=== PATIENT | female | born 1970 | race Caucasian/White ===

== ENCOUNTER 2021-12-16 08:20 | Emergency (ER) | payer OTHER, SELFPAY ==
--- NOTE | ~2021-12-16 | XR_ITS ---
EXAMINATION: XR HAND, RIGHT CLINICAL INFORMATION: History of fall, pain. COMPARISON: None TECHNIQUE: PA, lateral, and oblique views of the right hand. FINDINGS: The distal radius, ulna and radioulnar joint are normal. Carpal bones are intact and have normal alignment. The joint spaces of the wrist are maintained. The metacarpals and MCP joints are unremarkable. The phalanges are intact. Small osteophytes are noted at distal interphalangeal joints. There appears to be an old punctate calcification projecting dorsal to the mildly degenerated 5th DIP joint. XR/XR hand RT min 3V IMPRESSION: * No acute findings. No fracture or malalignment in the hand or wrist. * Mild osteoarthritis of distal interphalangeal joints.
[2021-12-16 08:25] VITALS: BP 158/99; PULSE 78; RESP 19; TEMP 36.6; O2SAT 98; BMI 39.6
--- NOTE | 2021-12-16 11:23 | ED_ITS ---
HPI - Extremity Problem General Chief complaint: Extremity Injury, Upper Stated complaint: R hand inj Time Seen by Provider: 12/16/21 10:54 Source: patient Mode of arrival: ambulatory Limitations: no limitations History of Present Illness HPI Narrative: 51-year-old female presents to ED for right hand palm laceration. Patient states she was at work and she tripped and scraped her hand on the cement. Patient denies hitting head or loss of consciousness. Patient denies any other physical complaints. Patient denies any other trauma. Related Data Previous Rx's Medication Instructions Recorded cephalexin 500 mg capsule 500 mg PO QID 7 days #28 caps 12/16/21 naproxen 500 mg tablet 500 mg PO BID PRN pain 7 days #14 12/16/21 tabs Allergies Allergy/AdvReac Type Severity Reaction Status Date / Time No Known Allergies Allergy Verified 12/16/21 09:54 Review of Systems Review of Systems: Right hand laceration Yes all other systems are reviewed and are negative PMFSH Social History Social History Advance Directives: No Advance Directives Information Provided: No Physical Exam Vital Signs: Vital Signs: Last Vital Signs Temp 98 F 12/16/21 08:25 Pulse 78 12/16/21 08:25 Resp 19 12/16/21 08:25 BP 158/99 H 12/16/21 08:25 Pulse Ox 98 12/16/21 08:25 O2 Del Method 12/16/21 08:25 BMI result Body Mass Index 39.6 Const: General: cooperative, healthy appearing, comfortable, no acute distress, well developed, alert, awake and Physically active Orientation/consciousness: oriented to person, oriented to place, oriented to time and patient oriented x3 HEENT: Head: Yes normal to inspection, Yes No palpable skull fracture present, Yes normocephalic, Yes atraumatic and No abrasion Eyes: General: appearance normal, both eyes and all related structures Neck: Neck: Yes normal visual inspection, Yes full ROM, Yes no ly mphadenopathy, Yes no meningeal signs, Yes trachea midline, Yes supple, No anterior neck swelling and No tender Chest: Chest palpation & inspection: normal inspection of the chest and normal palpation of entire chest wall Resp: Effort & Inspection: normal respiratory effort and able to speak in complete sentences Auscultation: clear to auscultation bilaterally Cardio: Jugular venous distension: no JVD Heart sounds: S1 normal heart sound present and S2 normal heart sound present GI: Inspection: Yes normal to inspection and No abdominal wall ecchymosis Palpation (GI): Soft to palpation, not firm, nontender, no guarding and not rigid : General: No CVA tenderness and Yes no CVA tenderness Back/Spine/Pelvis: Back: no CVA tenderness, No CVA tenderness and No back tenderness Skin: General skin exam: no rashes or lesions noted and elasticity normal Neuro: General: oriented to person, oriented to place, oriented to time, patient oriented x3, gait normal, tone normal and no meningeal signs Extrem: General: Yes normal to inspection and Yes full ROM Hand/finger images: 1. Positive for skin tear. Skin is cueva. Negative for deep laceration wound. Patient has complete range of motion of fingers. Negative for signs of tendon or ligament/nerve injury. Refills intact. Rest of extremity normal. Motor/neuro/vascular exam intact. Psych: Appearance: grossly normal, well kempt and not disheveled Course Course Course Narrative: Patient states up-to-date with tetanus. X-ray ordered Reevaluation(s) Reevaluation #1: X-ray negative for any fracture. Wound clean and placed in Xeroform. Patient informed follow-up were connection. Patient will be discharged on antibiotics Time: 11:29 MDM - Extremity (Nontraumatic) MDM Narrative Medical decision making narrative: hand injury. Skin tear Discharge Plan Discharge Clinical Impression: Skin tear of right upper extremity Patient Disposition: Home, Self-Care Instructions: Laceration Without Closure (ED) Additional Instructions: Your skin tear does not need any repair. Due to skin tear occurring on the palm will be discharged with antibiotics. You need to follow-up with work connection due to incident occurring at work. Return to ED for any headache any dizziness, vomiting blood, redness, pus discharge, foul odor, fever, chills, red streaks, bluish black discoloration, hotness, coldness, numbness/tingling, or any other concerning symptoms. Prescriptions: New cephalexin 500 mg capsule 500 mg PO QID 7 Days Qty: 28 0RF naproxen 500 mg tablet 500 mg PO BID PRN (Reason: pain) 7 Days Qty: 14 0RF Referrals: [facility] [Outside] (hand skin tear at work) Stand Alone Forms: Work/School Release Interventions: ED Discharge Assessment Last Done: 12/16/21 11:43 Discharge Date/Time: 12/16/21 11:47 Print Language: Australian
== END 2021-12-16 11:47 | disposition home or self-care (01) ==
PROVIDERS: Emergency Provider Student in an Organized Health Care Education/Training Program
DX: S61.411A Laceration without foreign body of right hand, initial encounter (principal); S60.511A Abrasion of right hand, initial encounter; W01.0XXA Fall on same level from slipping, tripping and stumbling without subsequent striking against object, initial encounter; Y93.9 Activity, unspecified; Y92.9 Unspecified place or not applicable; Y99.0 Civilian activity done for income or pay
CPT/HCPCS: 73130; 99282; 99283

== ENCOUNTER 2024-07-19 15:34 | Outpatient (AMB) | payer OTHER, SELFPAY ==
--- NOTE | 2024-07-19 15:40 | A.OFFVIS_ITS ---
Vital Signs 07/19/24 15:45 Height 5 ft 1 in Weight 214 lb 6 oz BMI 40.5 BP 123/63 Blood Pressure Location Lt brachial Position Sitting Pulse 75 Pulse Oximetry (%) 96 Oxygen Delivery Method Room Air Comment wt obtained on scale with shoes off Intake Visit Reasons: blood in stool Intake Note: Patient new consult for blood in stool. Patient cc: abdominal bloating and constipation. No more blood in stool/ one month ago. Route [employer] Supervisor Required: No Accompanied by: Self / Same As Patient Allergies No Known Allergies Allergy (Verified 07/19/24 15:43) Medication List - Last Reconciled 07/19/24 by Idalmis Weathers CNP acetaminophen ER mg PO PRN dajlhyppx-[id number]-fmmjnti ala 50-200-25 mg (Biktarvy) 1 tab PO DAILY ibuprofen 600 mg PO Q6H PRN HPI HPI blood in stool: Details: Patient is a 53-year-old female with PMH of obesity, HIV. Referred by PCP for further evaluation of rectal bleeding. Sera presents for further evaluation of rectal bleeding. She reports the onset of bleeding about two to three months ago. The bleeding is intermittent, with multiple episodes noted along with clots and associated abdominal pain. The location of the pain is in the lower abdomen, described as pelvic pain. She experiences bowel movements two to three times a week, sometimes requiring stra ining. However, states more recently stool alternates between constipation and diarrhea. Shares constipation improves with prune juice. Diarrhea occurs about twice a day when present. Reports remote hx of hemorrhoidectomy. She also reports occasional heartburn triggered by certain foods, which she manages with milk or Pepto-Bismol. Believes she had PAP for cervical CA screening approx two years ago at [facility] Patient denies: fever/chills, n/v, appetite changes, regurgitation, dysphasia, unintentional wt loss HIV managed by ID, on Biktarvy, last visit 2 mo ago, stable per pt Sera reports a recent thyroid ultrasound following an accident, which revealed thyroid enlargement. No intervention planned; repeat ultrasound scheduled in one year per PCP. Social History - Diet: Regular intake of rice, pasta, pizza, coffee, occasional carbonated beverages like Dr. 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 [facility] Medical History (Updated 07/19/24 @ 17:31 by Idalmis Weathers CNP) Morbid obesity with BMI of 40.0-44.9, adult HIV (human immunodeficiency virus infection) Change in stool Blood in stool Constipation Acid reflux Colon cancer screening Surgical History (Updated 07/19/24 @ 15:54 by Sera Luther) Hx of hand surgery Hx of carpal tunnel repair Hx of colonoscopy Family History (Updated 07/19/24 @ 16:12 by Idalmis Weathers CNP) Mother Heart disease Social History (Updated 07/19/24 @ 15:47 by Sera Luther) Household Members: Family Alcohol intake: never Patient Tobacco Use Status: Never used Tobacco Use of substances other than those prescribed or required for medical reasons: No Review of Systems Const Reports as per HPI ENT Reports as per HPI Card Reports as per HPI Resp Reports as per HPI GI Reports as per HPI Reports as per HPI Physical Exam Vital Signs: Last Vital Signs Pulse 75 07/19/24 15:45 BP 123/63 07/19/24 15:45 Pulse Ox 96 07/19/24 15:45 Oxygen Delivery Method Room Air 07/19/24 15:45 BMI result Body Mass Index 41.6 Const General: healthy appearing, no acute distress and well developed Nutritional Appearance: well nourished Orientation/consciousness: patient oriented x3 HEENT Head: Yes normal to inspection, Yes normocephalic and Yes atraumatic Face and sinus: Yes normal facial exam Eyes General: appearance normal, both eyes and all related structures Neck Neck: Yes normal visual inspection Resp Effort & Inspection: normal respiratory effort, able to speak in complete sentences, no tracheal deviation and symmetric chest movement Auscultation: clear to auscultation bilaterally Cardio Jugular venous distension: no JVD Rate: regular rate Rhythm: regular rhythm Heart sounds: S1 normal heart sound present, S2 normal heart sound present, no gallops and no murmurs GI Inspection: Yes normal to inspection and No distended Palpation (GI): Soft to palpation, not firm, nontender and No hepatosplenomegaly present Auscultation: normal bowel sounds Neuro General: patient oriented x3 Gait exam (Neuro): Normal gait present Psych Appearance: grossly normal Mental Status: mental status grossly normal Speech and movement: Normal speech and movement present Affect: normal affect Attitude: cooperative Thought process: Normal thought process present Thought content: Normal thought content present Insight: Good insight present (Psych) Judgement: Good judgement present (Psych) Assessment & Plan Assessment & Plan (1) Acid reflux: Code(s): K21.9 - Gastro-esophageal reflux disease without esophagitis Category: Medical Qualifiers: Esophagitis presence: esophagitis presence not specified Qualified Code(s): K21.9 - Gastro-esophageal reflux disease without esophagitis Plan: Heartburn triggered by food, relieved by milk/antacids Additional Tests: upper endoscopy at time of colonoscopy Medications: - Pepcid (famotidine) PRN for heartburn (Rx provided) - Discontinue Pepto-Bismol for reflux due to potential diagnostics interference -advised Tylenol over NSAIDs for any pain management needs Education on GERD prevention : -Advised against heavy meals; encouraged small, frequent meals instead of large ones. - Instructed to remain upright for 2?3 hours after eating. - Advised to avoid late-night meals, spicy foods, caffeine, alcohol, known diet robert triggers, and tight-fitting clothing. - Emphasis placed on gradual implementation of lifestyle changes to improve adherence and symptom control. (2) Blood in stool: Code(s): K92.1 - Melena Category: Medical Plan: Intermittent rectal bleeding with clots, abdominal pain, hx hemorrhoidectomy, age-appropriate for CRC screening. Last colonoscopy approximately 5-6 years ago at outside facility, results not available at time of this visit Additional Tests: - Colonoscopy (to r/o colorectal CA, polyps, other pathology) Diagnostic Tests: -Prescriptions for laxative tablets and Miralax sent to pharmacy; instructions for Gatorade purchase and clear liquid diet given. -will attempt to obtain most recent PAP results Medications: - understands to hold ibuprofen 7 days prior to procedure. - Use Tylenol if needed for pain. Patient educated on procedure preparation, including avoiding certain foods and ensuring clear liquid intake. Advised on necessity for ride post-procedure due to sedation. (3) Change in stool: Code(s): R19.5 - Other fecal abnormalities Category: Medical Plan: Alternating constipation and diarrhea Additional Tests: screening and basic labs to r/o inflammatory process or celiac Medications: declined article management for constipation. She will continue with the use of prune juice as needed. Reinforced lifestyle modifications to promote regularity: -higher fiber diet, examples provided -adequate hydration with water -150 minutes of moderate intensity exercise per week Plan Follow-up after double endoscopy or sooner as needed Time: I spent a total of 45 minutes on the date of encounter which includes: Preparing to see the patient (reviewed previous documentation, test results and medical history) Performing a medically appropriate exam and/or evaluation Ordering medications, tests, and procedures Documenting clinical information in the health record Orders: Orders Transglutaminase IgA Today K59.00 - Constipation, unspecified TSH reflex Free T4 Today K59.00 - Constipation, unspecified Complete Blood Count Auto Diff Today K59.00 - Constipation, unspecified IRON PROFILE Today K59.00 - Constipation, unspecified Calprotectin, Fecal Today K59.00 - Constipation, unspecified C Reactive Protein Today K59.00 - Constipation, unspecified Comprehensive Met. Panel Today K92.1 - Melena Medications: New famotidine Take one tablet up to twice daily as needed for acid reflux 20 mg PO BID PRN 180 tabs 1RF GERD bisacodyl Take four tablets once for 1 day per colonoscopy instructions 5 mg PO ONCE 1 day 4 tabs 0RF polyethylene glycol 3350 (Miralax) per colonoscopy prep instructions 238 grams PO ONCE 238 grams 0RF Coding Level of Care Code New Pt New Pt Level 5 (05057) Patient Type New Diagnoses Gastroesophageal reflux disease, unspecified whether esophagitis present K21.9 Esophagitis presence: esophagitis presence not specified Blood in stool K92.1 Change in stool R19.5
[2024-07-19 15:45] VITALS: BP 123/63; PULSE 75; O2SAT 96; BMI 40.5
--- OUTSIDE RECORDS SUMMARY | 2024-07-19 16:56 | XMS_ITS | Data Portability ---
Author Organization RIYA [facility]el[facility], [address] Address [address] [place] [address] Assessment No assessment recorded. Plan of Treatment Reminders Order Date Submit Date Provider Last Modified By Organization Details Last Modified Time Details Appointments None recorded. Lab None recorded. Referral orthopedic surgeon referral - pain left thumb and hand . not getting better failing conservativ e treatment. need further evaluation. x-ray left hand shows foreign body left hand 2023 024 [email or web address] 48 [facility], [address], [place], [address], 19:37:24 Procedures None recorded. Surgeries None recorded. Imaging XR, hand, 3 or more view 2023 024 [email or web address] 48 [facility], [address] [place], [address], 19:37:24 XR, shoulder, 2 or more view 2023 024 [email or web address] 48 [facility], [address] [place], [address], 19:37:24 Medication Orders None recorded. Patient TargetsNo targets recorded. Patient Instructions Encounter Date Encounter Id Patient Instructions Last Modified By Organization Details Last Modified Time 09/29/2023 [id number] shoulder pain: care instructions [email or web address] Not available 09/29/2023 18:16:07 Reason for Referral Orthopedic Surgeon Referral for Pain of left hand pain left thumb and hand . not getting better failing conservative treatment. need further evaluatio pain left thumb and hand . not getting better failing conservative treatment. need further evaluation. x-ray left hand shows foreign body left hand Referring Physician: Charles Mcdermott, Urgent Care, Encounter Date: 09/29/2023 Results Created Date Observation Date Name Description Value Unit Range Abnormal Flag Note LastModifiedBy Organization Detail LastModifiedTime 09/29/19 24 09/29/2023 XR, hand, 3 or more view No observ ation record ed. [email or web address] [facility] [address] [place], [address], 09/30/2023 12:26:53 09/29/19 24 09/29/2023 XR, shoul blake, 2 or more view No observ ation record ed. [email or web address] [facility] [address] [place], [address], 09/30/2023 12:26:54 Result Notes None recorded. Problems Name Problem SNOMED Code Status Onset Date Resolution Date Notes Provider Name and Address Organization Details Recorded Time Pain of right shoulder joint 293647875838777 00 Active 2023 Charles Mcdermott NP [address] , [place], [address], [place] - [facility] 18:13:52 Pain of left hand 912758035605767 Active 2023 Charles Mcdermott NP [address] , [place], [address], [place] - [facility] 4 18:14:01 Problem Notes None recorded. Procedures Surgical History Date Name Laterality Status Provider Name and Address Organization Details Recorded Time procedure on wrist completed Ismael Poon PA - [facility] 09/29/2023 17:55:33 Imaging Results None recorded. Procedure Notes None recorded. Medical Equipment None Reported. Allergies No known drug allergies Medications Name Sig Start Date Stop Date Status Note LastModified by Organization Details LastModified Time azithromyci n 250 mg tablet TAKE 2 TABLETS BY MOUTH TODAY, THEN TAKE 1 TABLET DAILY FOR 4 DAYS DIRECTED 09/28 completed Not Available Not Available Not Available tizanidine 4 mg tablet TAKE 1 TABLET BY MOUTH THREE TIMES A DAY 09/28 completed Not Available Not Available Not Available fluconazole 150 mg tablet TAKE 1 TABLET BY MOUTH ONCE FOR 1 DOSE , REPEAT ONE TABLET BY MOUTH SEVEN DAYS LATER 09/28 completed Not Available Not Available Not Available meloxicam 15 mg tablet TAKE 1 TABLET BY MOUTH EVERY DAY 09/28 completed Not Available Not Available Not Available benzonatate 100 mg capsule TAKE 1 CAPSULE BY MOUTH THREE TIMES A DAY NEEDED FOR COUGH FOR 7 DAYS 09/28 completed Not Available Not Available Not Available prednisone 50 mg tablet TAKE 1 TABLET BY MOUTH EVERY DAY FOR 5 DAYS 09/28 completed Not Available Not Available Not Available omeprazole 20 mg capsule,del ayed release TAKE 1 CAPSULE BY MOUTH EVERY DAY FOR 14 DAYS 09/28 completed Not Available Not Available Not Available amoxicillin 875 mg-potassiu m clavulanate 125 mg tablet TAKE 1 TABLET BY MOUTH EVERY 12 HOURS FOR 10 DAYS 09/28 completed Not Available Not Available Not Available nitrofurant oin monohydrate /macrocryst als 100 mg capsule TAKE 1 CAPSULE BY MOUTH TWICE A DAY FOR 5 DAYS 09/28 completed Not Available Not Available Not Available Biktarvy 50 mg-200 mg-25 mg tablet TAKE 1 TABLET BY MOUTH EVERY DAY 09/28 completed Not Available Not Available Not Available Vitals Date Recorded Body height Body mass index (BMI) Body weight Oxygen saturation Oxygen saturation in Arterial blood by Pulse oximetry Heart rate Body temperature Respiratory rate Systolic blood pressure Diastolic blood pressure Provider Name and Address Organization Details Last Updated DateTime 154.94 cm 37.8 kg/m2 44642.4 7 g 95 % 95 % 84 /min 98.2 [degF] 16 /min 121 mm[Hg] 79 mm[Hg] Ismael Rogers [facility] 17:59:48 Social History Question Answer Notes LastModified by [employer] Details LastModified Time Tobacco Smoking Status Never Smoker RIYA Lewis [facility] 09/29/2023 17:55:00 Have You Had A Flu Shot This Season? No Information not available 09/29/2023 Have You Recently Traveled Abroad? No Information not available 09/29/2023 Sex: Unknown Functional Status Question Answer Note LastModified by Organizat ion Details LastModified Time Do you use any illicit or recreational drugs? No Information not available 09/29/2023 Do you or have you ever used any other forms of tobacco or nicotine? No Information not available 09/29/2023 What is your level of alcohol consumption? None Information not available 09/29/2023 Mental Status None recorded. Family History Relationship Description Onset Age of this Age Resolved Age Notes LastModified by Organization Details LastModified Time Father No current problems or disability Not available 09/28 17:54:46 Mother No current problems or disability Not available 09/28 17:54:46 Medical History No medical history recorded. Gynecological HistoryNo gynecological history recorded. Obstetrics History GPAL:G 0 P 0 0 0 0 Past Encounters Encounter ID Performer Location Encounter Start Date Encounter Closed Date Diagnosis/Indication Diagnosis SNOMED-CT Code Diagnosis ICD10 Code Diagnosis Note [id number] [address] [facility] [facility] [address] 07/05/2015 16:40:28 07/05/2015 18:31:06 [id number] Charles Mcdermott, ANIMAL CAREGIVER [address] [place] [address] 09/29/2023 17:31:06 09/29/2023 19:37:24 Pain of right shoulder joint [id number] M25.511 You can hurt your shoulder by using it too much during an activity, such as fishing or baseball. It can also happen as part of the everyday wear and tear of getting older. Shoulder injuries can be slow to heal, but your shoulder should get better with time. Your doctor may recommend a sling to rest your shoulder. If you have injured your shoulder, you may need testing and treatment. How can you care for yourself at home? Take pain medicines exactly as directed. If the doctor gave you a prescripti on medicine for pain, take it as prescribed . If you are not taking a prescripti on pain medicine, ask your doctor if you can take an over-the-c ounter medicine. Do not take two or more pain medicines at the same time unless the doctor told you to. Many pain medicines contain acetaminop hen, which is Tylenol. Too much acetaminop hen (Tylenol) can be harmful. If your doctor recommends that you wear a sling, use it as directed. Do not take it off before your doctor tells you to. Put ice or a cold pack on the sore area for 10 to 20 minutes at a time. Put a thin cloth between the ice and your skin. If there is no swelling, you can put moist heat, a heating pad, or a warm cloth on your shoulder. Some doctors suggest alternatin g between hot and cold. Rest your shoulder for a few days. If your doctor recommends it, you can then begin gentle exercise of the shoulder, but do not lift anything heavy. Pain of left hand 677914 4443 86665 M79.642 A hand can break (fracture) during sports, a fall, or a car crash. The break may happen when your hand twists, is hit, or is used to protect you in a fall. Fractures can range from a small, hairline crack, to a bone or bones broken into two or more pieces. Your treatment depends on how bad the break is. Your doctor may have put your hand in a brace, splint, or cast to allow it to heal or to keep it stable until you see another doctor. It may take weeks or months for your hand to heal. You can help it heal with some care at home. You heal best when you take good care of yourself. Eat a variety of healthy foods, and don't smoke. How can you care for yourself at home? Put ice or a cold pack on your hand for 10 to 20 minutes at a time. Try to do this every 1 to 2 hours for the next 3 days (when you are awake). Put a thin cloth between the ice and your cast or splint. Keep your cast or splint dry. Follow the cast care instructio ns your doctor gives you. If you have a splint, do not take it off unless your doctor tells you to. Take pain medicines exactly as directed. If the doctor gave you a prescripti on medicine for pain, take it as prescribed . If you are not taking a prescripti on pain medicine, ask your doctor if you can take an over-the-c ounter medicine. Prop up your hand on pillows when you sit or lie down in the first few days after the injury. Keep your hand higher than the level of your heart. This will help reduce swelling. Follow instructio ns for exercises to keep your arm strong. Wiggle your uninjured fingers often to reduce swelling and stiffness, but do not use that hand to grasp or carry anything. Health Concerns Section Related Observation LastModified by Organization Detai ls LastModified Time None Recorded Concern Status LastModified by Organization Details LastModified Time None Recorded Advance Directives Directive None Recorded Payers Insurance Date Sequence Insurance Name Policy Number Policy Kendall Covered Member ID Kendall Member ID Guarantor Name 09/29/2023 2 [facility] (MEDICAID REPLACEMENT - HMO) [id number] Sera Acosta [id number] Sera Acosta 09/29/2023 1 [facility] (INDEMNITY) [id number] Irwin Acosta [id number] Sera Acosta Notes Date Note Type Note Provider Name and Address Organization Details Recorded Time 4 text/html Shoulder UCReported bypatient.source of patient informationInformation obtained from patient; Patient arrived at Urgent Care ambulatory Hand Dominance:right Location:right; anterior Quality:aching; sharp; frequent; worsening Severity:moderate; pain level 4/10 Duration:days; 2 months Timing:acute Context:lifting; twisting Alleviating Factors:rest Aggravating Factors:lifting; twisting; pushing/pulling; ROM Associated Symptoms:no weakness; no numbness; no tingling; no swelling; no redness; no warmth; no ecchymosis; no catching/locking; no buckling; no grinding; no instability; no radiation down arm; no drainage; no fever; no chills; no weight loss; no change in bowel/bladder habits;popping/clicking Previous InjuryNo prior injury to affected body part Previous Treatmentnone Prior Imaging:none Charles Mcdermott NP [address] [place], [address], [place] - [facility] 10/01/2023 08:13:10 OBGyn Episode No OBEpisode recorded.
== END 2024-07-19 16:33 | disposition home or self-care (01) ==
LOC: HO.HGI 15:35
PROVIDERS: PCP Physician Assistant; Visit Provider Nurse Practitioner Family
DX: K21.9 Gastro-esophageal reflux disease without esophagitis (principal); K92.1 Melena
CPT/HCPCS: 99204

== ENCOUNTER → 2024-07-19 15:34 | Outpatient (BNVA) | payer OTHER, SELFPAY | PROVIDERS: PCP Physician Assistant; Visit Provider Nurse Practitioner Family ==

== ENCOUNTER 2024-07-21 12:35 | Outpatient (REF) | payer OTHER, SELFPAY ==
[2024-07-21 12:52] LABS: MANUAL DIFF FLAG NO
[2024-07-21 13:15] LABS: Basophils Absolute Auto 0.1 X10*3/uL (0.0-0.2); Eosinophils Absolute Auto 0.1 X10*3/uL (0.0-0.4); Eosinophils Percent Auto 1.2 % (0-4); Hemoglobin 14.2 g/dl (12.0-16.0); Imm Gran Abs Auto 0.02 X10*3/uL (0.00-0.03); Imm Gran Pct Auto 0.3 % (0.0-0.4); Lymphocytes Absolute Auto 1.9 X10*3/uL (1.2-4.9); Lymphocytes Percent Auto 27.8 % (20-40); Mean Corpuscular Volume 93.9 fL (80.0-98.0); Mean Platelet Volume 9.7 fL (9.4-12.3); Monocytes Absolute Auto 0.6 X10*3/uL (0.1-1.2); Monocytes Percent Auto 8.5 % (2-11); Neutrophils Absolute Auto 4.2 x10*3/uL (2.0-8.3); Neutrophils Percent Auto 61.2 % (45-73); Platelet Count 184 X10*3/uL (160-400); Red Blood Count 4.58 X10*6/uL (4.20-5.50); Red Cell Distribution Width 13.3 % (11.0-16.0); White Blood Count 6.9 X10*3/uL (4.8-10.8)
[2024-07-21 14:01] LABS: Alanine Aminotransferase 18 U/L (0-31); Albumin Level 3.8 g/dL (3.5-5.0); Alkaline Phosphatase 64 U/L (39-117); Anion Gap 11 (12-20); Aspartate Amino Transferase 23 U/L (5-31); Bilirubin Total 0.7 mg/dL (0.0-1.0); Blood Urea Nitrogen 10 mg/dL (9-16); C Reactive Protein 1.43 mg/dL (< or = 0.50); Calcium 9.3 mg/dL (8.4-10.2); Carbon Dioxide 27 mmol/L (22-29); Chloride 110 mmol/L (96-108); Estimated Glomerular Filt Rate > 60; Glucose Random 78 mg/dL (60-115); Iron 124 mcg/dL (30-160); Percent Iron Saturation 39 % (15-50); Potassium 3.8 mmol/L (3.3-5.1); Sodium 144 mmol/L (135-145); Total Iron Binding Capacity 322 mcg/dL (228-428); Total Protein 7.3 g/dL (6.5-8.0); Unsaturated Iron Binding 198 ug/dL
[2024-07-21 14:15] LABS: TSH reflex Free T4 0.87 uIU/mL (0.32-4.0)
--- OUTSIDE RECORDS SUMMARY | 2024-07-21 14:40 | XMS_ITS | Data Portability ---
Author Organization RIYA ButterfieldStarmelanie s, [address] Address [address] [place] [address] Assessment No assessment recorded. Plan of Treatment Reminders Order Date Submit Date Provider Last Modified By Organization Details Last Modified Time Details Appointments None recorded. Lab None recorded. Referral orthopedic surgeon referral - pain left thumb and hand . not getting better failing conservativ e treatment. need further evaluation. x-ray left hand shows foreign body left hand 2023 024 [email or web address] 48 [facility], [address], [place], [address], 19:37:24 Procedures None recorded. Surgeries None recorded. Imaging XR, hand, 3 or more view 2023 024 [email or web address] 48 [facility], [address] [place], [address], 19:37:24 XR, shoulder, 2 or more view 2023 024 [email or web address] 48 [facility], [address] [place], [address], 19:37:24 Medication Orders None recorded. Patient TargetsNo targets recorded. Patient Instructions Encounter Date Encounter Id Patient Instructions Last Modified By Organization Details Last Modified Time 09/29/2023 [id number] shoulder pain: care instructions [email or web address] Not available [...] ed. [email or web address] [facility] [address] [place], [address], 09/30/2023 12:26:53 09/29/19 24 09/29/2023 XR, shoul blake, 2 or more view No observ ation record ed. [email or web address] [facility] [address] [place], [address], 09/30/2023 12:26:54 Result Notes None recorded. Problems Name Problem SNOMED Code Status Onset Date Resolution Date Notes Provider Name and Address Organization Details Recorded Time Pain of right shoulder joint [id number] 00 Active 2023 Charles Mcdermott NP [address] , [place], [address], [place] - [facility] 18:13:52 Pain of left hand 275162387849328 Active 2023 Charles Mcdermott NP [address] , [place], [address], [place] - [facility] 4 [...] Last Updated DateTime 154.94 cm 37.8 kg/m2 08779.4 7 g 95 % 95 % 84 /min 98.2 [degF] 16 /min 121 mm[Hg] 79 mm[Hg] Ismael Rogers [facility] 17:59:48 Social History Question Answer Notes LastModified by [employer] Details LastModified Time Tobacco Smoking Status Never [...] SNOMED-CT Code Diagnosis ICD10 Code Diagnosis Note [id number] [address] [facility] [address] [place] [address] 07/05/2015 16:40:28 07/05/2015 18:31:06 [id number] Charles Mcdermott, FISH BAILER [address] [place] [address] 09/29/2023 17:31:06 09/29/2023 19:37:24 Pain of right shoulder joint 6567481501 7343408 M25.511 You can hurt your shoulder by [...] lift anything heavy. Pain of left hand 386022 7609 03470 M79.642 A hand can break (fracture) during [...] Kendall Member ID Guarantor Name 09/29/2023 2 [facility] (MEDICAID REPLACEMENT - HMO) [id number] Sera Acosta [id number] Sera Acosta 09/29/2023 1 [facility] (INDEMNITY) [id number] Irwin Acosta [id number] Sera Acosta Notes Date Note Type [...] Mcdermott NP [address] [place], [address], [place] - [facility] 10/01/2023 08:13:10 OBGyn Episode No OBEpisode recorded.
[2024-07-22 21:34] LABS: Transglutaminase IgA <1.0 U/mL
== END 2024-07-21 12:36 | disposition home or self-care (01) ==
LOC: HO.LAB 12:35
PROVIDERS: Visit Provider Nurse Practitioner Family
DX: K59.00 Constipation, unspecified (principal); K92.1 Melena
CPT/HCPCS: 36415; 80053; 83540; 84443; 85025; 86140; 86364

== ENCOUNTER 2024-07-23 09:44 | Outpatient (REF) | payer OTHER, SELFPAY ==
[2024-07-28 19:03] LABS: Calprotectin, Fecal 8 mcg/g
== END 2024-07-23 09:45 | disposition home or self-care (01) ==
LOC: HO.LNP 09:44
PROVIDERS: Visit Provider Nurse Practitioner Family
DX: K59.00 Constipation, unspecified (principal)
CPT/HCPCS: 83993

== ENCOUNTER 2024-08-18 07:19 | Day surgery (SDC) | payer OTHER, SELFPAY ==
--- OUTSIDE RECORDS SUMMARY | 2024-08-04 15:40 | XMS_ITS | Data Portability ---
Author Organization RIYA ButterfieldStarmelanie s, [address] Address [address] [place] [address] Assessment No assessment recorded. Plan of Treatment Reminders Order Date Submit Date Provider Last Modified By Organization Details Last Modified Time Details Appointments None recorded. Lab None recorded. Referral orthopedic surgeon referral - pain left thumb and hand . not getting better failing conservativ e treatment. need further evaluation. x-ray left hand shows foreign body left hand 2023 024 [email or web address] 48 [facility], [address], [place], [address], 19:37:24 Procedures None recorded. Surgeries None recorded. Imaging XR, hand, 3 or more view 2023 024 [email or web address] 48 [facility], [address] [place], [address], 19:37:24 XR, shoulder, 2 or more view 2023 024 [email or web address] [facility], [address] [place], [address], 19:37:24 Medication Orders None recorded. Patient TargetsNo targets recorded. Patient Instructions Encounter Date Encounter Id Patient Instructions Last Modified By Organization Details Last Modified Time 09/29/2023 [id number] shoulder pain: care instructions [email or web address] Not available [...] ed. [email or web address] [facility] [address] [place], [address], 09/30/2023 12:26:53 09/29/19 24 09/29/2023 XR, shoul blake, 2 or more view No observ ation record ed. [email or web address] [facility] [address] [place], [address], 09/30/2023 12:26:54 Result Notes None recorded. Problems Name Problem SNOMED Code Status Onset Date Resolution Date Notes Provider Name and Address Organization Details Recorded Time Pain of right shoulder joint [id number] 00 Active 2023 Charles Mcdermott NP [address] , [place], [address], [place] - [facility] 18:13:52 Pain of left hand 215101816908010 Active 2023 Charles Mcdermott NP [address] , [place], [address], [place] - [facility] 4 [...] Last Updated DateTime 154.94 cm 37.8 kg/m2 46138.4 7 g 95 % 95 % 84 /min 98.2 [degF] 16 /min 121 mm[Hg] 79 mm[Hg] Ismael Rogers [facility] 17:59:48 Social History Question Answer Notes LastModified by [employer] Details LastModified Time Tobacco Smoking Status Never [...] SNOMED-CT Code Diagnosis ICD10 Code Diagnosis Note [id number] [address] [place] [address] 07/05/2015 16:40:28 07/05/2015 18:31:06 [id number] Charles Mcdermott, SECURITY COMPLIANCE ENGINEER [address] [place] [address] 09/29/2023 17:31:06 09/29/2023 19:37:24 Pain of right shoulder joint 7947979561 7570951 M25.511 You can hurt your shoulder by [...] lift anything heavy. Pain of left hand 247340 6779 54378 M79.642 A hand can break (fracture) during [...] Kendall Member ID Guarantor Name 09/29/2023 2 [facility] (MEDICAID REPLACEMENT - HMO) [id number] Sera Acosta [id number] Sera Acosta 09/29/2023 1 [facility]] (INDEMNITY) [id number] Irwin Acosta [id number] Sera Acosta Notes Date Note Type [...] Mcdermott NP [address] [place], [address], [place] - [facility] 10/01/2023 08:13:10 OBGyn Episode No OBEpisode recorded.
[2024-08-16 16:26] VITALS: BMI 40.5
--- NOTE | 2024-08-17 09:23 | HO.ANESPROP2 ---
Documented by User: Irina Junior NP 08/17/24 09:23 HPI - Anesthesia Eval Consult details Narrative: 53yo F for Upper Endoscopy and Colonoscopy [facility] Active Problems Active Problems: All Active Problems Change in stool (Acute) Blood in stool (Acute) Constipation (Acute) Acid reflux (Acute) Colon cancer screening (Acute) Past Medical History Medical History Morbid obesity with BMI of 40.0-44.9, adult HIV (human immunodeficiency virus infection) Change in stool Blood in stool Constipation Acid reflux Colon cancer screening Family History Family History Mother Heart disease Surgical History Surgical History Hx of hand surgery Hx of carpal tunnel repair Hx of colonoscopy Social History Social History Household Members: Family Alcohol intake: never Patient Tobacco Use Status: Never used Tobacco Are you DNR?: No Advance Directives: No Advance Directives Information Provided: Yes Meds Allergies Allergy/AdvReac Type Severity Reaction Status Date / Time No Known Allergies Allergy Verified 07/19/24 15:43 Home Medications ?Medication ?Instructions ?Recorded ?Confirmed ?Last Taken ?Type bictegravir 50 mg-emtricitabine 1 tab PO DAILY 07/14/24 07/19/24 Unknown History 200 mg-tenofovir alafenam 25 mg tablet (Biktarvy) ibuprofen 600 mg tablet 600 mg PO Q6H PRN Pain (Scale 07/14/24 07/19/24 History Score 1-3) acetaminophen 650 mg mg PO PRN 07/19/24 07/19/24 Unknown History tablet,extended release Exam Height,Weight and Vital Signs: Height 5 ft 1 in Weight 97.239 kg Assessment and Plan Assessment Anesthesia Assessment: Chart Reviewed Documented by User: Lawanda Gasca MD 08/18/24 09:17 [facility] Past Medical History Medical History Morbid obesity with BMI of 40.0-44.9, adult HIV (human immunodeficiency virus infection) Change in stool Blood in stool Constipation Acid reflux Colon cancer screening Family History Family History Mother Heart disease Surgical History Surgical History Hx of hand surgery Hx of carpal tunnel repair Hx of colonoscopy History of Problems with Anesthesia: No Social History Social History Household Members: Family Alcohol intake: never Patient Tobacco Use Status: Never used Tobacco Are you DNR?: No Advance Directives: No Advance Directives Information Provided: Yes Meds Allergies Allergy/AdvReac Type Severity Reaction Status Date / Time No Known Allergies Allergy Verified 07/19/24 15:43 Home Medications ?Medication ?Instructions ?Recorded ?Confirmed ?Last Taken ?Type bictegravir 50 mg-emtricitabine 1 tab PO DAILY 07/14/24 07/19/24 Unknown History 200 mg-tenofovir alafenam 25 mg tablet (Biktarvy) ibuprofen 600 mg tablet 600 mg PO Q6H PRN Pain (Scale 07/14/24 07/19/24 History Score 1-3) acetaminophen 650 mg mg PO PRN 07/19/24 07/19/24 Unknown History tablet,extended release Exam Airway Mallampati Class: II TM Dist: >3cm Neck ROM: Full Loose/Missing/Broken Teeth: No Heart: RRR Lungs: CTA Assessment and Plan Assessment Anesthesia Assessment: Anesthesia Plan Discussed Final Anesthetic Review History of Problems with Anesthesia: No NPO: Yes ASA Class: II Final Preanesthetic Review: Meds/Allgs Chart Reviewed, Consent Obtained/Reviewed and Anes Risks/Benef Reviewed Patient Risk: Low Procedure Risk: Intermediate Anesthetic Plan Anesthetic Plan: MAC: Disposition: Standard PACU
[2024-08-18 07:55] VITALS: BP 148/85; PULSE 66; RESP 18; TEMP 36.4; O2SAT 98; BMI 38.6
[2024-08-18] MEDS: Lactated Ringers 1,000 ML 100 ML IVCONT (08:20)
--- NOTE | 2024-08-18 08:38 | MHC.SHP ---
Pre-Procedural Eval Section A - 24 Hr Update-Section A only Date of Service: 08/18/24 Section B - Complete if H&P > 30 days Chief Complaint: GERD, rectal bleeding, change in bowel habits Details of Present Illness: Morbid obesity with BMI of 40.0-44.9, adult HIV (human immunodeficiency virus infection) Change in stool Blood in stool Constipation Acid reflux Colon cancer screening Surgical History (Updated 07/19/24 @ 15:54 by Sera Luther) Hx of hand surgery Hx of carpal tunnel repair Hx of colonoscopy Present Medications: see Short Stay Collaborative assessment Allergies: Allergies Allergy/AdvReac Type Severity Reaction Status Date / Time No Known Allergies Allergy Verified 07/19/24 15:43 Review of Systems Review of Systems Comment: Ten point ROS negative Exam Exam Comment: Gen appear: No acute distress HEENT: no icterus Chest: No overt resp distress Abd: soft, nontender, nondistended Psych: Stable affect, answering questions appropriately Neuro: A/Ox3 noted to move all extremities spontaneously Ext: no peripheral edema Plan Diagnosis/Plan: Unchanged I have reviewed the history and physical and performed a pertinent physical examination on my patient. No changes have occurred unless specified. Time Spent With Patient Time: Total time managing care of this patient today ____ minutes.
[2024-08-18 09:33] VITALS: BP 104/63; PULSE 60; RESP 18; TEMP 36.1; O2SAT 97
--- NOTE | 2024-08-18 09:35 | P.OPN-COLO_ITS ---
Colonoscopy Operative Note Operative Note Date of Service: 08/18/24 Narrative: Procedure: Upper endoscopy and colonoscopy Indication: GERD, rectal bleeding, change in bowel habits Endoscopist: Mago March MD Anesthesia Provider: Anesthesia type: MAC Instrument: [id number] and [id number] EGD Procedure:?? The procedure, indications, preparation and potential complications were reviewed with the patient, who indicated understanding and gave written informed consent to proceed. The endoscope was introduced through the mouth, and advanced to the 2nd part of the duodenum. The mucosa was carefully examined on slow withdrawal of the endoscope. The patient tolerated the procedure well. There were no immediate complications.? EGD Findings:? * Esophagus:? Normal esophageal mucosa was noted. The Z-line was at 35 cm and displaced by a hiatal hernia with the diaphragmatic pinch at 39 cm. * Stomach: Erythema and erosions in the body of the stomach. Retroflexion was performed in the cardia. Random cold forceps biopsies were taken from the stomach. * Duodenum:? Normal duodenal mucosa. Colonoscopy Procedure:? The patient was then turned for the colonoscopy. A digital rectal exam was performed which was abnormal for prolapsed hemorrhoids vs rectal prolapse.? A distal attachment cap was affixed to the tip of the scope and the colonoscope was then inserted through the anus and advanced through the colon and advanced to the cecum at 75 cm and terminal ileum.? Appendiceal orifice and ileocecal valve were identified. Mucosa was carefully examined under high definition white light as the instrument was slowly withdrawn in a retrograde panoramic fashion. Retroflexion was performed in rectum. The procedure was not difficult. The quality of the prep was BBPS: 3+2+3 = adequate Withdrawal time 7 minutes Limitations: No limitations Findings: Mucosa: Normal colon and terminal ileum mucosa. Cold forceps biopsies were taken from right and left side of the colon to rule out microscopic colitis. Protruding lesions: * 1 sessile polyp of size 5 mm in the rectum. Cold forceps polyp was performed. The polyp was completely removed and retrieved. * Large internal hemorrhoids with stigmata of recent bleeding. Impression: 1. Normal esophagus 2. Hiatal hernia 3. Gastritis (biopsy) 4. Normal duodenum 5. Normal colon and terminal ileum mucosa (biopsy) 6. Prolapsed internal hemorrhoids vs rectal prolapse Recommendations:?? * Follow-up path results * Switch H2 andrés to daily PPI x 8-12 weeks * Consider barium swallow for evaluation of hiatal hernia * Avoid NSAIDs * H Pylori treatment if biopsies + * Surgical referral for evaluation of prolapsed internal hemorrhoids vs rectal prolapse * Repeat colonoscopy for CRC screening in 7 years if polyp is an adenoma. Above was reviewed with the patient and relevant handouts were provided at discharge.
[2024-08-18 09:48] VITALS: BP 138/77; PULSE 62; RESP 18; O2SAT 96
[2024-08-18 09:53] VITALS: BP 136/86; PULSE 59; RESP 18; TEMP 36.2; O2SAT 96
== END 2024-08-18 10:13 | disposition home or self-care (01) ==
PROVIDERS: PCP Physician Assistant; Visit Provider Internal Medicine
PROC: (CPT 45380; principal; 2024-08-18 09:10)
DX: R19.5 Other fecal abnormalities (principal); D12.8 Benign neoplasm of rectum; K62.3 Rectal prolapse; K64.8 Other hemorrhoids; K62.5 Hemorrhage of anus and rectum; K21.9 Gastro-esophageal reflux disease without esophagitis; K29.60 Other gastritis without bleeding; K22.9 Disease of esophagus, unspecified; K44.9 Diaphragmatic hernia without obstruction or gangrene; B20 Human immunodeficiency virus [HIV] disease; E66.01 Morbid (severe) obesity due to excess calories; Z68.41 Body mass index [BMI] 40.0-44.9, adult; Z79.899 Other long term (current) drug therapy
CPT/HCPCS: 45380; 43239; 88305; 88342; J2003; J2704

== ENCOUNTER → 2024-08-18 07:19 | Outpatient (BNV) | payer OTHER, SELFPAY | PROVIDERS: PCP Physician Assistant; Visit Provider Internal Medicine | DX: K21.9 Gastro-esophageal reflux disease without esophagitis (principal); K29.70 Gastritis, unspecified, without bleeding; K62.5 Hemorrhage of anus and rectum; D12.8 Benign neoplasm of rectum; K64.8 Other hemorrhoids | CPT/HCPCS: 43239; 45380 ==

== ENCOUNTER 2024-08-25 10:42 | Outpatient (AMB) | payer OTHER, SELFPAY ==
--- OUTSIDE RECORDS SUMMARY | 2024-08-23 12:52 | XMS_ITS | Encounter Summary ---
Author Organization [facility] Address [address] [place] [address] Care Team Providers Care Housekeeper Name Role Phone Jet Gomez Primary Care Provider [phone] Reason for Referral * Imaging (Routine) - Pending Review Specialty Diagnoses / Procedures Referred By Libby garcia Referred To Contact Radiology Diagnoses Nodule of right lobe of thyroid gland Procedures US Guided Fine Ndl Asp 1st Lesion Jet Gomez PA [address] [place] [address] Phone: tel: fax: [facility] Referral ID Status Reason Start Date Expiration Date V isits Requested Visits Authorized [id number] Pending Review 08/05/2024 08/05/2025 1 1 Reason for Visit * Imaging (Routine) - Pending Review Specialty Diagnoses / Procedures Referred By Libby garcia Referred To Contact Radiology Diagnoses Nodule of right lobe of thyroid gland Procedures US Guided Fine Ndl Asp 1st Lesion Jet Gomez PA [address] [place] [address] Phone: tel: fax: [facility] Referral ID Status Reason Start Date Expiration Date V isits Requested Visits Authorized [id number] Pending Review 08/05/2024 08/05/2025 1 1 Encounter Details Date Type Department Care Team (Latest Contact Info) Description 08/23/2024 12:52 PM EDT - 08/23/2024 11:59 PM EDT Hospital Encounter [facility] Ultrasound [address] [place] [address] Nodule of right lobe of thyroid gland Discharge Disposition: Home or Self Care Social History Tobacco Use Types Packs/Day Years Used Date Smoking Tobacco: Never Smokeless Tobacco: Never Alcohol Use Standard Drinks/Week Comments No 0 (1 standard drink = 0.6 oz pur e alcohol) Comments Unknown Sex and Gender Information Value Date Recorded Sex Assigned at Female 03/09/2024 12:40 PM EST Legal Sex Female 10:08 AM EST Gender Identity Female 03/09/2024 12:40 PM EST Sexual Orientation Straight 03/09/2024 12 :40 PM EST documented as of this encounter Discharge Disposition Disposition Code Departure Means Destination Home or Self Care documented in this encounter Plan of Treatment Pending Results Name Type Priority Associated Diagnoses Date/Time Fine needle aspiration Pathology and Cytology Routine Nodule of right lobe of thyroid gland 08/23/2024 1:13 PM EDT documented as of this encounter Procedures Procedure Name Priority Date/Time Associated Diagnosis Comments US GUIDED FINE NDL ASP 1ST LESION Routine 08/23/2024 2:01 PM EDT Nodule of right lobe of thyroid gland FINE NEEDLE ASPIRATION Routine 08/23/2024 1:13 PM EDT Nodule of right lobe of thyroid gland documented in this encounter Results * US Guided Fine Ndl Asp 1st Lesion (08/23/2024 2:01 PM EDT) Anatomical Region Laterality Modality Ultrasound 08/23/2024 2:25 PM EDT Narrative 08/23/2024 2:28 PM EDT History: Patient with right thyroid nodule Procedure performed: 1. Ultrasound-guided fine-needle aspiration of right thyroid nodule Physician: Colin Read MD FSIR Anesthesia: 8 mL 1% lidocaine for local anesthesia Specimen: Three 22-gauge FNA samples Drain: None Estimated blood loss: None Complications: None Procedure in detail: Informed and written consent was obtained and placed in the chart. The patient was positioned supine on the ultrasound examination table with sterile preparation of the right neck. Ultrasound showed a large heterogeneous nodule in the right thyroid gland. 1% lidocaine was injected subcutaneously under ultrasound guidance and extended to the edge of the nodule. Next, under ultrasound guidance with permanent recordings and direct visualization of needle penetration of the mass, three 22-gauge FNA samples were obtained. These were processed by pathology and the specimens were determined to be adequate. A sterile dressing was applied. Follow-up ultrasound showed no bleeding nor other complication. The patient tolerated the procedure well. Summary: Successful ultrasound-guided fine-needle aspiration of a right thyroid nodule as described in detail above. -------- FINAL REPORT -------- Dictated By: Leonardo Read Dictated Date: 08/23/2024 14:25 ET Assigned Physician: Leonardo Read Reviewed and Electronically Signed By: Leonardo Read Signed Date: 08/23/2024 14:28 ET Workstation ID: [id number] Transcribed By: Self Edit Transcribed Date: 08/23/2024 14:25 ET Procedure Note Leonardo Read MD - 08/23/2024 History: Patient with right thyroid nodule Procedure performed: 1. Ultrasound-guided fine-needle aspiration of right thyroid nodule Physician: Colin Read MD FSIR Anesthesia: 8 mL 1% lidocaine for local anesthesia Specimen: Three 22-gauge FNA samples Drain: None Estimated blood loss: None Complications: None Procedure in detail: Informed and written consent was obtained and placedin the chart. The patient was positioned supine on the ultrasoundexamination table with sterile preparation of the right neck. Ultrasoundshowed a large heterogeneous nodule in the right thyroid gland. 1%lidocaine was injected subcutaneously under ultrasound guidance andextended to the edge of the nodule. Next, under ultrasound guidance withpermanent recordings and direct visualization of needle penetration of themass, three 22-gauge FNA samples were obtained. These were processed bypathology and the specimens were determined to be adequate. A steriledressing was applied. Follow- up ultrasound showed no bleeding nor othercomplication. The patient tolerated the procedure well. Summary: Successful ultrasound-guided fine-needle aspiration of a rightthyroid nodule as described in detail above. -------- FINAL REPORT -------- Dictated By: Leonardo Read Dictated Date: 08/23/2024 14:25 ET Assigned Physician: Leonardo Read Reviewed and Electronically Signed By: Leonardo Read Signed Date: 08/23/2024 14:28 ET Workstation ID: [id number] Transcribed By: Self Edit Transcribed Date: 08/23/2024 14:25 ET Jet RITTER G US PROCEDURES Final Result documented in this encounter Visit Diagnoses Diagnosis Nodule of right lobe of thyroid gland documented in this encounter Administered Medications Inactive Administered Medications - up to 3 most recent administrations Medication Order MAR Action Action Date Dose Rate Site lidocaine (XYLOCAINE) 1 % injection 10 mL 10 mL, injection, Once in imaging, Starting on Thu08/23/24 at 1402, For 1 dose Given 08/23/2024 2:02 PM EDT 10 mL documented in this encounter Orders Medications Ordered That Ray ht Not Have Been Administered Count Last Ordered Date First Ordered Date lidocaine (XYLOCAINE) 1 % injection 10 mL 1 08/23/2024 documented in this encounter Care Teams Housekeeper Relationship Specialty Start Date End Date Jet Gomez PA [address] [place] [address] PCP - General Internal Medicine 06/26/21 documented as of this encounter
--- NOTE | 2024-08-25 10:49 | A.OFFVIS_ITS ---
Vital Signs 08/25/24 10:56 Height 5 ft 1 in Weight 204 lb BMI 38.5 BP 130/82 Blood Pressure Location Rt brachial Position Sitting Pulse 68 Pulse Source Pulse Oximeter Pulse Oximetry (%) 96 Oxygen Delivery Method Room Air Intake Visit Reasons: Post op EGD/COLO Intake Note: Est pt for mgmt of GERD. S/P Duo. CC; C.O. concern regarding Rx cream that was given to her by another provider. Would like to ask about this during this visit. No GI sx or concerns at this time. 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 Sera presents for follow-up after recent upper endoscopy and colonoscopy, which were performed due to acid reflux, rectal bleeding, and changes in bowel habits. She reports occasional heartburn, which she manages with milk, and infrequent straining during bowel movements. She reports drinking prune juice helps manage her constipation and promotes regular bowel movements. She has not keen on additional pharmacological management for constipation. She denies current blood in stools, nausea, vomiting, or trouble swallowing. When discussing potential rectal prolapse she denies pain, reports hx of hemorrhoidectomy. Shares engagement in previous regular anal intercourse but denies any recent sexual activity. She recently underwent a ? thyroid biopsy. She does not report any significant changes in her overall health status or daily functioning related to her gastrointestinal symptoms [facility] Medical History (Updated 08/25/24 @ 17:00 by Idalmis Weathers CNP) Rectal prolapse Hiatal hernia Tubular adenoma of colon Morbid obesity with BMI of 40.0-44.9, adult HIV (human immunodeficiency virus infection) Change in stool Blood in stool Constipation Acid reflux Colon cancer screening Surgical History Hx of hand surgery Hx of carpal tunnel repair Hx of colonoscopy Family History Mother Heart disease Social History Household Members: Family Alcohol intake: never Patient Tobacco Use Status: Never used Tobacco Physical Exam Vital Signs: Last Vital Signs Pulse 68 08/25/24 10:56 BP 130/82 08/25/24 10:56 Pulse Ox 96 08/25/24 10:56 Oxygen Delivery Method Room Air 08/25/24 10:56 BMI result Body Mass Index 38.5 Const General: healthy appearing, no acute distress and well developed Nutritional Appearance: well nourished Orientation/consciousness: patient oriented x3 HEENT Head: Yes normal to inspection, Yes normocephalic and Yes atraumatic Face and sinus: Yes normal facial exam Eyes General: appearance normal, both eyes and all related structures Neck Neck: Yes normal visual inspection Resp Effort & Inspection: normal respiratory effort, able to speak in complete sentences, no tracheal deviation and symmetric chest movement Auscultation: clear to auscultation bilaterally Cardio Jugular venous distension: no JVD Rate: regular rate Rhythm: regular rhythm Heart sounds: S1 normal heart sound present, S2 normal heart sound present, no gallops and no murmurs GI Inspection: Yes normal to inspection, No distended, Yes obesity and Yes striae Palpation (GI): Soft to palpation, not firm, nontender and No hepatosplenomegaly present Auscultation: normal bowel sounds Rectal Exam - Female: decreased sphincter tone, No fecal impaction, No mass, No tenderness and other (perianal thickness, deep pink in color) Neuro General: patient oriented x3 Gait exam (Neuro): Normal gait present Psych Appearance: grossly normal Mental Status: mental status grossly normal Speech and movement: Normal speech and movement present Affect: normal affect Attitude: cooperative Thought process: Normal thought process present Thought content: Normal thought content present Insight: Good insight present (Psych) Judgement: Good judgement present (Psych) Results Reviewed Results Reviewed: Operative Note Date of Service: 08/18/24 Narrative: Procedure: Upper endoscopy and colonoscopy Indication: GERD, rectal bleeding, change in bowel habits Endoscopist: Mago March MD Anesthesia Provider: Anesthesia type: MAC Instrument: [id number] and [id number] EGD Procedure: The procedure, indications, preparation and potential complications were reviewed with the patient, who indicated understanding and gave written informed consent to proceed. The endoscope was introduced through the mouth, and advanced to the 2nd part of the duodenum. The mucosa was carefully examined on slow withdrawal of the endoscope. The patient tolerated the procedure well. There were no immediate complications. EGD Findings: Esophagus: Normal esophageal mucosa was noted. The Z-line was at 35 cm and displaced by a hiatal hernia with the diaphragmatic pinch at 39 cm. Stomach: Erythema and erosions in the body of the stomach. Retroflexion was performed in the cardia. Random cold forceps biopsies were taken from the stom ach. Duodenum: Normal duodenal mucosa. Colonoscopy Procedure: The patient was then turned for the colonoscopy. A digital rectal exam was performed which was abnormal for prolapsed hemorrhoids vs rectal prolapse. A distal attachment cap was affixed to the tip of the scope and the colonoscope was then inserted through the anus and advanced through the colon and advanced to the cecum at 75 cm and terminal ileum. Appendiceal orifice and ileocecal valve were identified. Mucosa was carefully examined under high definition white light as the instrument was slowly withdrawn in a retrograde panoramic fashion. Retroflexion was performed in rectum. The procedure was not difficult. The quality of the prep was BBPS: 3+2+3 = adequate Withdrawal time 7 minutes Limitations: No limitations Findings: Mucosa: Normal colon and terminal ileum mucosa. Cold forceps biopsies were taken from right and left side of the colon to rule out microscopic colitis. Protruding lesions: 1 sessile polyp of size 5 mm in the rectum. Cold forceps polyp was performed. The polyp was completely removed and retrieved. Large internal hemorrhoids with stigmata of recent bleeding. Impression: 1. Normal esophagus 2. Hiatal hernia 3. Gastritis (biopsy) 4. Normal duodenum 5. Normal colon and terminal ileum mucosa (biopsy) 6. Prolapsed internal hemorrhoids vs rectal prolapse Recommendations: Follow-up path results Switch H2 andrés to daily PPI x 8-12 weeks Consider barium swallow for evaluation of hiatal hernia Avoid NSAIDs H Pylori treatment if biopsies + Surgical referral for evaluation of prolapsed internal hemorrhoids vs rectal prolapse Repeat colonoscopy for CRC screening in 7 years if polyp is an adenoma. Assessment & Plan Assessment & Plan (1) Tubular adenoma of colon: Comment: 08/18/24 colonoscopy complete with adequate prep-Large internal hemorrhoids, rectal prolapse and 1 sessile polyp of size 5 mm in the rectum. Code(s): D12.6 - Benign neoplasm of colon, unspecified Category: Medical Plan: Colonoscopy revealed pre-cancerous polyp, removed during procedure. - Repeat colonoscopy in 7 years or sooner if clinically indicated. (2) Acid reflux: Comment: 08/18/2024 EGD- Gastritis, hiatal hernia Code(s): K21.9 - Gastro-esophageal reflux disease without esophagitis Category: Medical Qualifiers: Esophagitis presence: esophagitis presence not specified Qualified Code(s): K21.9 - Gastro-esophageal reflux disease without esophagitis Plan: Upper endoscopy revealed normal esophagus with gastritis and hiatal hernia. Occasional heartburn managed with milk. - Start omeprazole 20 mg daily for 12 weeks. - Order barium swallow study to evaluate hiatal hernia size and determine if surgical intervention necessary. - Patient instructions: NPO for 8 hours before exam, avoid antacids. - Lifestyle modifications: ensure good fiber and water intake, exercise regularly, avoid reflux triggers. (3) Rectal prolapse: Code(s): K62.3 - Rectal prolapse Category: Medical Plan: Colonoscopy suggested potential rectal prolapse. Physical examination today did not reveal obvious prolapse findings more c/w prolapsed hemorrhoid VS normal anatomy post hemorrhoidectomy. Reassured she is asymptomatic. She may benefit from pelvic floor therapy. - Consider diagnostics manometry (at [facility]) and/or defecography if symptoms develop or constipation worsens 1130 08/26/24: Spoke with Sera this morning to discuss the above therapy recommendation and referral to General Surgery for further evaluation of questionable rectal findings. She is agreeable to both referral and PT. Plan Follow-up in 3 months or sooner as needed Time: I spent a total of 40 minutes on the date of encounter which includes: Preparing to see the patient (reviewed previous documentation, test results and medical history) Performing a medically appropriate exam and/or evaluation Ordering medications, tests, and procedures Documenting clinical information in the health record Orders: Orders [place] barium swallow 08/25/24 K44.9 - Diaphragmatic hernia without obstruction or gangrene PT Evaluation and Treatment Today K62.3 - Rectal prolapse Referrals General Surgery Referral K62.3 - Rectal prolapse Medications: New omeprazole Take one tablet daily for 12 weeks. Best on empty stomach and 30 minutes before consuming food. 20 mg PO DAILY 90 caps 0RF Coding Level of Care Code Established Pt Est Pt Level 5 (99652) Patient Type Established Diagnoses Tubular adenoma of colon D12.6 Gastroesophageal reflux disease, unspecified whether esophagitis present K21.9 Esophagitis presence: esophagitis presence not specified Rectal prolapse K62.3
[2024-08-25 10:56] VITALS: BP 130/82; PULSE 68; O2SAT 96; BMI 38.5
--- OUTSIDE RECORDS SUMMARY | 2024-08-25 11:23 | XMS_ITS | Clinical Summary ---
Author Organization [facility] Address [address] [place] [address] Care Team Providers Care Videotape Operator Name Role Phone Jet Gomez Primary Care Provider [phone] Source Comments PLEASE NOTE, if this patient is a minor, it may be UNLAWFUL to discuss sensitive information that is contained in these records (such as FAMILY PLANNING, MENTAL HEALTH or SUBSTANCE ABUSE) with the minor patient's parent or other person without the patient's specific authorization.[facility] Allergies No known active allergies Medications ibuprofen 400 mg tabletIndicatio ns:Thumb pain, left Take 1 Tablet by mouth 3 (three) times daily as needed for pain 60 Tablet 1 4 Active meloxicam (MOBIC) 15 mg tabletIndicatio ns:Mechanical low back pain Take 1 Tablet by mouth once daily as needed for pain 90 Tablet 4 Active lidocaine (LIDODERM) 5 % patchIndication s:Rib pain on right side Place 1 Patch onto the skin daily. Apply 1 patch to the affected area for a maximum of 12 hours, followed by removal for 12 hours. 30 Patch 1 5 Active tiZANidine (ZANAFLEX) 4 mg capsuleIndicati ons:Rib pain on right side Take 1 Capsule by mouth 3 (three) times daily 30 Capsule 1 5 Active docusate sodium (COLACE) 100 mg capsuleIndicati ons:Hemorrhoids , unspecified hemorrhoid type Take 1 Capsule by mouth 2 (two) times daily 60 Capsule 5 Active BIKTARVY 50-200-25 mg tabIndications: Asymptomatic HIV infection (CMS & HHS-HCC) TAKE 1 TABLET BY MOUTH EVERY DAY 30 Tablet 11 5 Active betamethasone valerate (VALISONE) 0.1 % ointmentIndicat ions:Atopic dermatitis, unspecified type Apply topically once daily. 30 g 1 5 Active gabapentin (NEURONTIN) 300 mg capsuleIndicati ons:neuropathic pain Take 1 Capsule by mouth 2 (two) times daily Indications: neuropathic pain 30 Capsule 2 025 Discontin ued(Outda prisca-Remov ed from Med List (E-Cancel Not Sent)) minoxidiL 5 % foam Apply 60 g topically 2 (two) times a day 60 g 3 2 025 Discontin ued(Outda prisca-Remov ed from Med List (E-Cancel Not Sent)) betamethasone, augmented (DIPROLENE) 0.05 % lotionIndicatio ns:Eczema, unspecified type Apply topically 2 (two) times daily 60 mL 2 2 025 Discontin ued(Outda prisca-Remov ed from Med List (E-Cancel Not Sent)) simethicone (MYLICON) 125 mg chewable tabletIndicatio ns:Bloating Place 1 Tablet into mouth, chew and swallow every 6 (six) hours as needed for flatulence 120 Tablet 3 025 Discontin ued(Outda prisca-Remov ed from Med List (E-Cancel Not Sent)) clindamycin phosphate (CLEOCIN T) 1 % lotionIndicatio ns:Asymptomatic HIV infection, with no history of HIV-related illness ([facility]) APPLY A SMALL AMOUNT TO THE PIMPLE ONCE DAILY 60 mL 4 025 Discontin ued(Outda prisca-Remov ed from Med List (E-Cancel Not Sent)) nystatin (MYCOSTATIN) 100,000 unit/gram powderIndicatio ns:Candidiasis of breast Apply topically 3 (three) times daily 15 g 5 025 Discontin ued(Outda prisca-Remov ed from Med List (E-Cancel Not Sent)) hydrocortisone (ANUSOL-HC) 2.5 % topical creamIndication s:Hemorrhoids, unspecified hemorrhoid type Place rectally 2 (two) times daily 30 g 2 5 025 Discontin ued(Outda prisca-Remov ed from Med List (E-Cancel Not Sent)) clotrimazole-be tamethasone (LOTRISONE) 1-0.05 % cream Apply topically 2 (two) times daily 15 g 1 5 025 Discontin ued(Outda prisca-Remov ed from Med List (E-Cancel Not Sent)) ketoconazole (NIZORAL) 2 % creamIndication s:Vulvovaginiti s Apply topically 2 (two) times daily. 60 g 2 5 025 Discontin ued(Outda prisca-Remov ed from Med List (E-Cancel Not Sent)) fluconazole (DIFLUCAN) 150 mg tabletIndicatio ns:Vulvovaginit is Take 1 tab PO today. Then wait 72 hours. If symptoms persist take 1 tab PO in 72 hours.. 2 Tablet 5 025 Discontin ued(Outda prisca-Remov ed from Med List (E-Cancel Not Sent)) Active Problems Problem Noted Date Diagnosed Date Non morbid obesity 09/26/2021 Varicose veins of both lower extremities with in flammation 09/26/2021 Abnormal cervical Papanicolaou smear 09/26/2021 Abnormal uterine bleeding 09/26/2021 Carpal tunnel syndrome of right wrist 09/26/2021 Routine adult health maintenance 09/26/2021 Accessory skin tags 09/26/2021 Benign mole 09/26/2021 Right foot pain 09/26/2021 Eczema 09/26/2021 Varicose veins of bilateral lower extremities wi th pain 09/26/2021 Contact with and (suspected) exposure to covid-1 9 10/06/2020 Cutaneous abscess of abdominal wall 09/27/2020 Abscess 09/20/2019 Acute contact dermatitis 09/20/2019 History of hemorrhoids 12/06/2018 Overview (12/06/2018): 11/16/18, pt called requesting f/u eval of hemorrhoids. Per scheduling provider note, here were removed years ago but bleeding reoccurred. Hemorrhoids, external without complications 11/17 Prolapsed internal hemorrhoids with spontaneous retraction 12/06/2018 Influenza vaccine administered 12/06/2018 Cutaneous abscess of groin 07/08/2018 Hepatitis A 06/07/2018 Overview (06/07/2018): Images from the original note were not included. Date:05/21/2018 HEPATITIS A ANTIBODY TOTAL NEGATIVE POSITIVE A Comment: Over the counter supplements containing high doses of biotin may interfere with this assay. If interference is suspected, patients shoud be retested after refraining from biotin supplements for 72 hours. Chronic hepatitis C without hepatic coma ([facility]) 05/27/2018 Overview (06/07/2018): Images from the original note were not included. Date: 05/21/2018 HEP C SCREEN NEGATIVE POSITIVE A Comment: If confirmation of this positive HCV Ab screening test is needed, please redraw and order HCV Viral Load. Note--> This test may not be added on due to different specimen requirements. Elevated BP without diagnosis of hypertension History of recurrent ear infection 05/02/2016 Recurrent suppurative otitis media of left ear with spontaneous rupture of tympanic membrane 05/02/2016 HIV infection ([facility]) 02/17/1996 Overview (09/26/2021): Diagnosed many years ago, followed by [facility] ID on [facility] Resolved Problems Problem Noted Date Diagnosed Date Resolved Date Upper respiratory infection, acute 07/06/2018 10/05/2020 Encounters Date Type Department Care Team Description 07/29/2024 8:20 AM EDT Telemedicine Visit [address] [phone] Teodora Lubin PA-C 07/19/2024 4:40 PM EDT Office Visit [address] [phone] Da Bee PA-C 06/21/2024 2:20 PM EDT Office Visit [address] [phone] Reyes Tony NP 06/17/2024 9:40 AM EDT Telemedicine Visit [facility] [address] [place] [id number] Teodora Lubin PA-C 06/15/[address] [facility] [address] [place] [id number] Jet Gomez PA from Last 3 Months Immunizations Immunization Administration Dates Next Due Flu, Preservative Free 12/30/2021,2019,12/03/2017,12/10 Hep B, Adult/Adol (NYURCYK-O-WVQCE/RECOMBIVAX-ADULT) 09/27/2020,11/24/2018,07/05/2018,05/31 Hep B,adult,adjuvanted (HEPLISAV) 04/14/2022, INFLUENZA, SEASONAL, INJECTABLE 12/06/2018,01/06,11/10/2007 Influenza (FLUBLOK),recombinant,injectable,prese rvative Free 10/23/2023 Influenza, Whole 12/02/2006,01/07/2006 MENINGOCOCCAL MCV4P (MENACTRA) 05/20/2021,2020 MMR (MMR II/Priorix) 09/01/2016,05/11/2009,05/10 PFIZER COVID VACCINE, PURPLE CAP, 12+ 03/22/2021 ,08/16/2020,07/26/2020 PNEUMOCOCCAL CONJUGATE PCV 13 01/21/2012 PNEUMOCOCCAL CONJUGATE PCV 2 0 (Prevnar 20) 10/23/2023 PNEUMOCOCCAL POLYSACCHARIDE PPV23 (Pneumovax 23) 05/21/2018,12/02/2006 Pfizer-BioNTech COVID-19 Vac cine Bivalent, (BLACKBURN PFIZER-BIONTECH COVID-19 VACCINE BIVALENT, (BLACKBURN CAP 12/30/2021 TDAP 09/01/2016,12/03/2006 ZOSTER VACCINE, RECOMBINANT (SHINGRIX) ,09/27/2020 Social History Tobacco Use Types Packs/Day Years Used Date Smoking Tobacco: Never Passive Smoke Exposure: Never Smokeless Tobacco: Never Tobacco Cessation:Counseling Given: Not Answered Alcohol Use Standard Drinks/Week Comments Never 0 (1 standard drink = 0.6 oz pur e alcohol) Social Connections Answer Date Recorded Connectedness 0 12/15/2022 Financial Resource Strain Answer Date R ecorded Financial Resource Strain 0 2022 Stress Answer Date Recorded Stress 0 12/15/2022 Physical Activity Answer Date Recorded Physical Activity 0 10/10/2018 Food Insecurity Answer Date Recorded Food 0 12/15/2022 Transportation Needs Answer Date Record ed Transportation 0 12/15/2022 Housing Stability Answer Date Recorded Housing 0 12/15/2022 Safety and Environment Answer Date Shamar rded Safety 0 12/15/2022 Utilities Answer Date Recorded Utilities 0 12/15/2022 Employment Answer Date Recorded Stress 0 12/15/2022 Comments No Sex and Gender Information Value Date Recorded Sex Assigned at Female 11/28/2016 2:23 PM PDT Legal Sex Female 10:24 AM PST Gender Identity Female 11/28/2016 2:23 PM PDT Sexual Orientation Straight 11/28/2016 2: 23 PM PDT Last Filed Vital Signs Vital Sign Reading Time Taken Comments Blood Pressure 140/90 06/21/2024 2:26 PM EDT Pulse 66 06/21/2024 2:26 PM EDT Temperature 36.7 C (98.1 F) 06/21/2024 2:26 PM EDT Respiratory Rate 16 06/21/2024 2:26 PM EDT Oxygen Saturation 96% 06/21/2024 2:26 PM EDT Inhaled Oxygen Concentration - - Weight 97.5 kg (215 lb) 07/19/2024 5:18 PM EDT Height 154.9 cm (5' 1 ) 06/21/2024 2:26 PM EDT Body Mass Index 40.62 06/21/2024 2:26 PM EDT Plan of Treatment Health Maintenance Due Date Last Done Comments Anxiety Screening 1968 CT Colonography 2013 Colonoscopy 2013 Colorectal Cancer Screening 2013 FIT/gFOBT 2013 Fecal DNA 2013 Flexible Sigmoidoscopy 2013 Lipid Screening 01/24/2023 01/24/2022, 0510/2020, 04/27/2019, Additional history exists [id number] ( season) 2023 12/30/2021, 03/22/2021, 08/16/2020, Additional history exists Annual Wellness (Adult): Indicated (All Coverage) 12/16/2023 12/15/2022, 09/26/2021, 09/27/2020, Additional history exists Alcohol and Drug Screen 02/17/2024 11/25/19 24, 12/15/2022, 06/24/2021, Additional history exists Depression Annual Screen 02/17/2024 024, 12/15/2022, 08/27/2017, Additional history exists Breast Cancer Screening (Mammogram) 11/27/2024 11/28/2023, 11/22/2022, 11/19/2021, Additional history exists Pap Smear 01/17/2025 01/17/2022, 03/2021, 05/06/2017, Additional history exists Hypertension Screening (#1) 06/21/2025 Tobacco Screening 07/29/2025 07/29/2024, 07/31/2016 Imm-Meningococcal (3 - Risk 2-dose series) 05/20/2026 05/20/2021, 09/27/2020 Imm-DTaP/Tdap/Td (3 - Td or Tdap) 09/01/2026 09/01/2016, 12/03/2006 Cervical Cancer Screening 01/17/2027 HPV Screening 01/17/2027 01/17/2022, 05/06/2017 Pap + HPV 01/17/2027 01/17/2022, 03/2021, 08/04/2018, Additional history exists Diabetes Screening 05/28/2027 05/27/2024, 0 10/23/2023, 06/01/2023, Additional history exists Imm-MMR Completed 09/01/2016, 04/17, 05/10/2008 Imm-Zoster, Recombinant Completed 11/27/2020, 09/27 Imm-Hepatitis B Completed 04/14/2022, 02/17, 09/27/2020, Additional history exists Imm-Influenza Discontinued 10/23/2023, 12/17, 12/19/2019, Additional history exists Imm-Pneumococcal 50+ Completed 10/23/2023, 05/21/2018, 01/21/2012, Additional history exists Cervical Ablation/Cold-Knife Conization Discontinued Cervical Cryotherapy Discontinued Colposcopy Discontinued Endometrial Biopsy Discontinued Excision/Leep Discontinued HPV Genotyping Discontinued Imm-HIB Aged Out No longer eligi ble based on patient's age to complete this topic Imm-Hepatitis A Discontinued Vaginal Pap Discontinued Vulvoscopy Discontinued Procedures Procedure Name Priority Date/Time Associated Diagnosis Comments SURESWAB ADVANCED VAGINITIS PLUS, TMA Routine 07/19/2024 5:40 PM EDT Vulvovaginitis URINALYSIS, MULTISTIX (POCT) Routine 07/19/2024 5:33 PM EDT Urine frequency URINE CULTURE W ID & SENS Routine 07/19/2024 5:30 PM EDT RFLX - REFLEXIVE URINE CULTURE Routine 07/19/2024 5:30 PM EDT Urine frequency URINALYSIS, COMPLETE W/REFLEX TO CULTURE Routine 07/19/2024 5:30 PM EDT Urine frequency REFERRAL TO GASTROENTEROLOGY Routine 07/19/2024 3:00 AM EDT Rectal bleeding REFERRAL SCANNED DOCUMENT 07/14/2024 3:00 AM EDT URINALYSIS, MULTISTIX (POCT) Routine 06/21/2024 3:11 PM EDT Dysuria REFERRAL FOR ULTRASOUND Routine 06/16/19 3:00 AM EDT Left thyroid nodule HIV-1 RNA QUANT REAL TIME PCR, PLASMA Routine 05/27/2024 12:15 PM EDT HIV infection, unspecified symptom status (CMS & HHS-HCC) Chronic hepatitis C without hepatic coma (CMS & HHS-HCC) HEPATITIS C VIRAL-RNA, QN REAL-TIME PCR Routine 05/27/2024 12:15 PM EDT HIV infection, unspecified symptom status (CMS & HHS-HCC) Chronic hepatitis C without hepatic coma (CMS & HHS-HCC) COMPREHENSIVE METABOLIC PANEL Routine 05/27/2024 12:15 PM EDT HIV infection, unspecified symptom status (CMS & HHS-HCC) Chronic hepatitis C without hepatic coma (CMS & HHS-HCC) C TRACHOMATIS/N GONORRHOEAE RNA,TMA Routine 05/27/2024 12:15 PM EDT HIV infection, unspecified symptom status (CMS & HHS-HCC) Chronic hepatitis C without hepatic coma (CMS & HHS-HCC) SYPHILIS ANTIBODY CASCADING REFLEX Routine 05/27/2024 12:15 PM EDT HIV infection, unspecified symptom status (CMS & HHS-HCC) Chronic hepatitis C without hepatic coma (CMS & HHS-HCC) QUANTIFERON-TB GOLD PLUS Routine 025 12:15 PM EDT HIV infection, unspecified symptom status (CMS & HHS-HCC) Chronic hepatitis C without hepatic coma (CMS & HHS-HCC) LYMPHOCYTE SUBSET PANEL 5 Routine 05/27/2024 12:15 PM EDT HIV infection, unspecified symptom status (CMS & HHS-HCC) Chronic hepatitis C without hepatic coma (CMS & HHS-HCC) BLOOD COUNT COMPLETE AUTO&AUTO DIFRNTL WBC Routine 05/27/2024 12:15 PM EDT HIV infection, unspecified symptom status (CMS & HHS-HCC) Chronic hepatitis C without hepatic coma (CMS & HHS-HCC) HISTORIC MAMMOGRAM 11/28/2023 3: 00 AM EDT LIPID PANEL Routine 01/24/2022 9:40 AM EST Varicose veins of bilateral lower extremities with pain Routine adult health maintenance PAP SMEAR W/HPV, ABSTRACTED Routine 01/17/2022 from Last 3 Months or Most Recently Relevant to Health Maintenance Results * (ABNORMAL) SURESWAB ADVANCED VAGINITIS PLUS, TMA Vaginal VAGINA Routine (07/19/2024 5:40 PM EDT) SURESWAB(R) ADV BACTERIAL VAGINOSIS (BV), TMA POSITIVE(A) NEGATIVE [facility] DEE SPECIES NOT DETECTED NOT DETECTED [facility] DEE GLABRATA NOT DETECTED NOT DETECTED [facility] COMMENT [facility] TRICHOMONAS VAGINALIS (TV), TMA NOT DETECTED NOT DETECTED [facility] CHLAMYDIA TRACHOMATIS RNA, TMA NOT DETECTED NOT DETECTED [facility] NEISSERIA GONORRHOEAE RNA, TMA NOT DETECTED NOT DETECTED [facility] COMMENT [facility] VAGINA Vaginal structure / Unknown 07/19/2024 5:40 PM EDT 07/20/2024 4:54 AM EDT Narrative [facility] - 07/20/2024 7:56 PM EDT Dee species C. albicans, C. tropicalis, C. parapsilosis, and/or C. dubliniensis can be detected, but not differentiated, in the Dee spp. result. For additional information, please refer to https://education.Janalakshmi/faq/NRY878 (This link is being provided for information/ educational purposes only.) Da Bee PA-C LAB - MICROBIOLOGY AMBULATORY Final Result [facility] [address] [address], [facility] [address] [address] * (ABNORMAL) URINALYSIS, MULTISTIX (POCT) Urine Routine (07/19/2024 5:33 PM EDT) Only the most recent of2 resultswithin the time period is included. URINE GLUCOSE NEGATIVE NEGATIVE [facility] POCT URINE BILIRUBIN NEGATIVE NEGATIVE [facility]- BACK OFFICE POCT URINE KETONES NEGATIVE NEGATIVE [facility] POCT URINE SPECIFIC GRAVITY 1.030(A) <=1.005 - >=1.030 [facility] PO[facility] URINE BLOOD NEGATIVE NEGATIVE [facility] POCT URINE PH 5.5 5.0 - 8.5 [facility] URINE PROTEIN 30 (1+)(A) Negative [facility] POCT URINE UROBILINOGEN 0.2 0.2 - 1.0 E.U./dL [facility] PO[facility] URINE NITRITE NEGATIVE NEGATIVE [facility] PO[facility] URINE LEUKOCYTES SMALL(A) NEGATIVE [facility] BACK [facility] POCT URINE COLOR DARK YELLOW STRAW, YELLOW [facility]- BACK OFFICE POCT ODOR URINE Normal Normal [facility]- BACK OFFICE POCT CLARITY OF URINE CLOUDY(A) CLEAR [facility] POCT Urine Urine specimen / Unknown 07/19/2024 5:33 PM EDT Da Bee PA-C LAB URINE AMBULATORY Final Re sult Performing Organization Address [facility] Co de Phone Number [facility]- BACK OFFICE POCT * URINE CULTURE W ID & SENS Routine (07/19/2024 5:30 PM EDT) CULTURE See Note [facility] Comment: CULTURE, URINE, ROUTINE Micro Number: [id number] Test Status: Final Specimen Source: Urine Specimen Quality: Adequate Result: Mixed genital gill isolated. These superficial bacteria are not indicative of a urinary tract infection. No further organism identification is warranted on this specimen. If clinically indicated, recollect clean-catch, mid-stream urine and transfer immediately to Urine Culture Transport Tube. 07/19/2024 5:30 PM EDT 07/20/2024 5:30 AM EDT Da SANDERS LAB - MICROBIOLOGY AMBULATORY Final Result Performing Organization Address [facility] de Phone Number [facility] [address] [address], [email or web address] [address] [address] * (ABNORMAL) URINALYSIS, COMPLETE W/REFLEX TO CULTURE Urine Routine (07/19/2024 5:30 PM EDT) COLOR DARK YELLOW YELLOW [email or web address] [facility] APPEARANCE CLOUDY(A) CLEAR [facility] SPECIFIC GRAVITY 1.028 1.001 - 1.035 [facility] URINE PH 5.5 5.0 - 8.0 [facility] GLUCOSE NEGATIVE NEGATIVE [facility] BILIRUBIN NEGATIVE NEGATIVE [facility] KETONES NEGATIVE NEGATIVE [facility] OCCULT BLOOD TRACE(A) NEGATIVE [facility] URINE PROTEIN TRACE(A) NEGATIVE [facility] NITRITE NEGATIVE NEGATIVE [facility] LEUKOCYTE ESTERASE 2+(A) NEGATIVE [facility] URINE LEUKOCYTES > OR = 60(A) < OR = 5 [facility] RBC 0-2 0 - 2 /HPF [facility] SQUAMOUS EPITHELIAL CELLS 20-40(A) < OR = 5 /HPF [facility] BACTERIA MODERATE(A) NONE SEEN [facility] CALCIUM OXALATE CRYSTALS MODERATE(A) NONE OR FEW [facility] HYALINE CAST 0-5(A) NONE SEEN /LPF [facility] SEE NOTE See Below [facility] Comment: This urine was analyzed for the presence of WBC, RBC, bacteria, casts, and other formed elements. Only those elements seen were reported. Urine Urine specimen / Unknown 07/19/2024 5:30 PM EDT 07/20/2024 5:30 AM EDT us Da Bee PA-C LAB URINE AMBULATORY Edited R esult - Final Performing Organization Address City/[facility]/ZIP Co de Phone Number [facility] [address] [address], [facility] [address] [address] * RFLX - REFLEXIVE URINE CULTURE Routine (07/19/2024 5:30 PM EDT) REFLEXIVE URINE CULTURE See Below [facility] [facility] Comment:CULTURE INDICATED - RESULTS TO FOLLOW 07/19/2024 5:30 PM EDT 07/20/2024 5:30 AM EDT us Da Bee PA-C LAB - MICROBIOLOGY AMBULATORY Edited Result - Final Performing Organization Address City/[facility]/ZIP Co de Phone Number [facility] [address] [address], [facility] [address] [address] * REFERRAL TO GASTROENTEROLOGY (07/19/2024 3:00 AM EDT) 07/19/2024 3:00 AM EDT us Da Bee PA-C REFERRAL Final Result * REFERRAL SCANNED DOCUMENT (07/14/2024 3:00 AM EDT) 07/14/2024 3:00 AM EDT Jet RITTER SCAN REFERRAL Final Result * REFERRAL FOR ULTRASOUND (06/15/2024 3:00 AM EDT) 06/15/2024 3:00 AM EDT Jet RITTER IMG RFL ULTRASOUND Final Resul t * QUANTIFERON-TB GOLD PLUS (05/27/2024 12:15 PM EDT) QUANTIFERON NEGATIVE NEGATIVE [facility] Comment: Negative test result. M. tuberculosis complex infection unlikely. NIL 0.04 IU/mL [facility] MITOGEN-NIL >10.00 IU/mL [facility] TB1-NIL 0.01 IU/mL [facility] TB2-NIL 0.01 IU/mL [email or web address] [facility] Comment: The Nil tube value reflects the background interferon gamma immune response of the patient's blood sample. This value has been subtracted from the patient's displayed TB and Mitogen results. Lower than expected results with the Mitogen tube prevent false-negative Quantiferon readings by detecting a patient with a potential immune suppressive condition and/or suboptimal pre-analytical specimen handling. The TB1 Antigen tube is coated with the M. tuberculosis-specific antigens designed to elicit responses from TB antigen primed CD4+ helper T-lymphocytes. The TB2 Antigen tube is coated with the M. tuberculosis-specific antigens designed to elicit responses from TB antigen primed CD4+ helper and CD8+ cytotoxic T-lymphocytes. For additional information, please refer to https://education.Sensdata.CirroSecure/faq/YJH989 (This link is being provided for informational/ educational purposes only.) Blood Blood / Unknown 05/27/2024 1 2:15 PM EDT 05/27/2024 12:16 PM EDT Narrative [facility] [employer] [facility] - 05/31/2024 6:12 PM EDT FASTING:NO Result [facility] LAB - BLOOD DRAW Edited Resu lt - Final Performing Organization Address [facility] Co de Phone Number [facility] [address] [address], [facility] [address] [address] * SYPHILIS ANTIBODY CASCADING REFLEX (05/27/2024 12:15 PM EDT) T. PALLIDUM AB, EIA NEGATIVE NEGATIVE [facility] Comment: No antibodies to T. pallidum (the agent causing syphilis) were detected in the specimen. This result, however, does not exclude very recent T. pallidum infection; testing of a second specimen, collected 2-4 weeks after this specimen, is recommended if the index of suspicion for recent infection is high. Blood Blood / Unknown 05/27/2024 1 2:15 PM EDT 05/27/2024 12:16 PM EDT Narrative [facility] - 05/31/2024 6:12 PM EDT FASTING:NO [facility] LAB - BLOOD DRAW Edited Resu lt - Final Performing Organization Address [facility] Co de Phone Number [facility] [address] [address], [facility] [address] [address] * C TRACHOMATIS/N GONORRHOEAE RNA,TMA (05/27/2024 12:15 PM EDT) CHLAMYDIA TRACHOMATIS RNA, TMA NOT DETECTED NOT DETECTED [facility] NEISSERIA GONORRHOEAE RNA, TMA NOT DETECTED NOT DETECTED [facility] COMMENT [facility] Urine Urine specimen / Unknown 05/27/2024 12:15 PM EDT 05/27/2024 12:16 PM EDT Narrative [facility] - 05/31/2024 6:12 PM EDT FASTING:NO The analytical performance characteristics of this assay, when used to test SurePath(TM) specimens have been determined by [employer]. The modifications have not been cleared or approved by the FDA. This assay has been validated pursuant to the CLIA regulations and is used for clinical purposes. For additional information, please refer to https://education.Sensdata.CirroSecure/faq/XIZ336 (This link is being provided for information/ educational purposes only.) us Teodora Lubin PA-C LAB BODY FLUIDS AND STOOLS A MBULATORY Edited Result - Final Performing Organization Address [facility] Co de Phone Number [facility] [address] [address], [place] [facility] [address] [address] * LYMPHOCYTE SUBSET PANEL 5 (05/27/2024 12:15 PM EDT) Pathologist [facility] % CD4 (HELPER CELLS) 43 30 - 61 % [facility] [place] ABSOLUTE CD4+ CELLS 1,064 490 - 1,740 cells/uL [facility] [place] ABSOLUTE LYMPHOCYTES 2,454 850 - 3,900 cells/uL [facility] Blood Blood / Unknown 05/27/2024 1 2:15 PM EDT 05/27/2024 12:16 PM EDT Narrative [facility] - 05/31/2024 6:12 PM EDT FASTING:NO Teodora Lubin PA-C LAB - BLOOD DRAW Final Resul t Performing Organization Address [facility] Co de Phone Number [facility] [address] [place], [place] , [place] [facility]LI [facility] [address] [place], [place] * HIV-1 RNA QUANT REAL TIME PCR, PLASMA (05/27/2024 12:15 PM EDT) COPIES/ML NOT DETECTED NOT DETECTED [facility] LOG COPIES/ML NOT DETECTED NOT DETECTED [facility] Comment: This test was performed using Real-Time Polymerase Chain Reaction. Reportable Range: 20 copies/mL to 10,000,000 copies/mL (1.30 log copies/mL to 7.00 log copies/mL). Blood Blood / Unknown 05/27/2024 1 2:15 PM EDT 05/27/2024 12:16 PM EDT Narrative [facility] - 05/31/2024 6:12 PM EDT FASTING:NO Teodora Lubin PA-C LAB - BLOOD DRAW Edited Resu lt - Final Performing Organization Address [facility] Co de Phone Number [facility] [address] [address], [facility] [address] [address] * HEPATITIS C VIRAL-RNA, QN REAL-TIME PCR (05/27/2024 12:15 PM EDT) [facility] HCV RNA, QUANTITATIVE REAL TIME PCR <15 NOT DETECTED NOT DETECTED [facility] HCV RNA, QUANTITATIVE REAL TIME PCR <1.18 NOT DETECTED NOT DETECTED [facility] COMMENT [facility] Blood Blood / Unknown 05/27/2024 1 2:15 PM EDT 05/27/2024 12:16 PM EDT Narrative [facility] - 05/31/2024 6:12 PM EDT FASTING:NO For additional information, please refer to http://education.Janalakshmi/faq/KIS57j1 (This link is being provided for informational/ educational purposes only.) Teodora Lubin PA-C LAB - BLOOD DRAW Edited [facility] Performing Organization Address City/[facility] Co de Phone Number [facility] [address] [address], [facility] [address] [address] * BLOOD COUNT COMPLETE AUTO&AUTO DIFRNTL WBC (05/27/2024 12:15 PM EDT) [facility] WHITE BLOOD CELL COUNT 7.6 3.8 - 10.8 Thousand/ uL [facility] RED BLOOD CELL COUNT 4.65 3.80 - 5.10 Million/u L [facility] HEMOGLOBIN 14.7 11.7 - 15.5 g/dL [facility] HEMATOCRIT 44.7 35.0 - 45.0 % [facility] MCV 96.1 80.0 - 100.0 fL [facility] MCH 31.6 27.0 - 33.0 pg [facility] MCHC 32.9 32.0 - 36.0 g/dL [facility] Comment: For adults, a slight decrease in the calculated MCHC value (in the range of 30 to 32 g/dL) is most likely not clinically significant; however, it should be interpreted with caution in correlation with other red cell parameters and the patient's clinical condition. RDW 13.0 11.0 - 15.0 % [facility] PLATELET COUNT 212 140 - 400 Thousand/ uL [facility] MPV 10.6 7.5 - 12.5 fL [facility] ABSOLUTE NEUTROPHILS 4,248 1,500 - 7,800 cells/uL [facility] ABSOLUTE LYMPHOCYTES 2,538 850 - 3,900 cells/uL [facility] ABSOLUTE MONOCYTES 646 200 - 950 cells/uL [facility] ABSOLUTE EOSINOPHILS 99 15 - 500 cells/uL [facility] ABSOLUTE BASOPHILS 68 0 - 200 cells/uL [facility] [place] [facility] NEUTROPHILS PCT 55.9 % QUES T [facility] LYMPHOCYTES 33.4 % [facility] MONOCYTES 8.5 % [facility] EOSINOPHILS 1.3 % [facility] BASOPHILS 0.9 % [facility] Blood Blood / Unknown 05/27/2024 1 2:15 PM EDT 05/27/2024 12:16 PM EDT Narrative [facility] - 05/31/2024 6:12 PM EDT FASTING:NO us Teodora Lubin PA-C LAB - BLOOD DRAW Edited Resu lt - Final [facility] [address] [address], [place] [address] [place] [address] * COMPREHENSIVE METABOLIC PANEL (05/27/2024 12:15 PM EDT) [facility] GLUCOSE 72 65 - 139 mg/dL [email or web address] Comment: Non-fasting reference interval UREA NITROGEN (BUN) 7 7 - 25 mg/dL [email or web address] CREATININE (blood) 0.62 0.50 - 1.03 mg/dL [facility] EGFR 105 > OR = 60 mL/min/1. 73m2 [facility] BUN/CREATININE RATIO SEE NOTE: 6 [facility] Comment: Not Reported: BUN and Creatinine are within reference range. SODIUM 141 135 - 146 mmol/L [facility] POTASSIUM 4.0 3.5 - 5.3 mmol/L [facility] CHLORIDE 104 98 - 110 mmol/L [facility] CARBON DIOXIDE 27 20 - 32 mmol/L [facility] CALCIUM 8.8 8.6 - 10.4 mg/dL [facility] PROTEIN, TOTAL 7.0 6.1 - 8.1 g/dL [facility] ALBUMIN 3.9 3.6 - 5.1 g/dL [facility] GLOBULIN 3.1 1.9 - 3.7 g/dL (calc) [facility] ALBUMIN/GLOBULI N RATIO 1.3 1.0 - 2.5 (calc) [facility] BILIRUBIN, TOTAL 0.4 0.2 - 1.2 mg/dL [facility] ALKALINE PHOSPHATASE 68 37 - 153 U/L [facility] AST 19 10 - 35 U/L [facility] ALT 18 6 - 29 U/L [facility] Blood Blood / Unknown 05/27/2024 1 2:15 PM EDT 05/27/2024 12:16 PM EDT Narrative [facility] - 05/31/2024 6:12 PM EDT FASTING:NO Teodora Lubin PA-C LAB - BLOOD DRAW Edited Resu lt - Final [facility] [address] [address], [facility] [address] [place] [address] * HISTORIC MAMMOGRAM (11/28/2023 3:00 AM EDT) 11/28/2023 3:00 AM EDT us [facility] IMG MAMMO Final Result * (ABNORMAL) LIPID PANEL (01/24/2022 9:40 AM EST) CHOLESTEROL, TOTAL 195 <200 mg/dL [facility] HDL CHOLESTEROL 52 > OR = 50 mg/dL [facility] TRIGLYCERIDES 118 <150 mg/dL [facility] LDL-CHOLESTEROL 120(H) 99 mg/dL (calc) [facility] Comment: Reference range: <100 Desirable range <100 mg/dL for primary prevention; <70 mg/dL for patients with CHD or diabetic patients with > or = 2 CHD risk factors. LDL-C is now calculated using the Carie calculation, which is a validated novel method providing better accuracy than the Friedewald equation in the estimation of LDL-C. Juan SS et al. EMMIE. 2013;310(19): 5866-4961 (http://education.Deetectee Microsystems/faq/WNR299) CHOL/HDLC RATIO 3.8 <5.0 (calc) [facility] NON-HDL CHOLESTEROL 143(H) <130 mg/dL (calc) [facility] Comment: For patients with diabetes plus 1 major ASCVD risk factor, treating to a non-HDL-C goal of <100 mg/dL (LDL-C of <70 mg/dL) is considered a therapeutic option. Blood Blood / Unknown 01/24/2022 9 :40 AM EST 01/24/2022 9:40 AM EST Narrative [facility] - 01/24/2022 9:21 PM EST FASTING:YES Jet RITTER LAB - BLOOD DRAW Final Result [facility] [address] [address], [email or web address] [address] [address] * PAP SMEAR W/HPV (01/17/2022) PAP SMEAR INTERPRETATION NORMAL NORMAL [facility] HPV (HUMAN PAPILLOMA) NEGATIVE NEGATIVE [facility] HPV TYPE 16 NEGATIVE NEGATIVE [facility] HPV TYPE 18 NEGATIVE NEGATIVE [facility] Swab 01/17/2022 Impressions [facility] - 01/17/2022 5:33 PM EST Result type: Cytology Reports CLEARING TUB WORKER PAP Test Result date: January 17, 2022 22:04 EST Result status: Auth (Verified) Result title: Cytology Reports CLEARING TUB WORKER PAP Test Encounter info: [id number], [facility] LIN WOMENMelissa, Discharged OutPatient, 01/17/2022 - 01/17/2022 Contributor system: COPATHPLUS * Final Report * Cytology Reports CLEARING TUB WORKER PAP Test Patient Name: RUTH MCKEON Patient : 1970 (Age: 51) Lab Collection Date: 01/17/2022 Accession Date: 01/17/2022 Sign Out Date: 01/22/2022 Tissue Source: 1: THINPREP CLEARING TUB WORKER PAP TEST, CERVICAL: Final Diagnosis: NEGATIVE FOR INTRAEPITHELIAL LESION OR MALIGNANCY. Satisfactory for evaluation. Endocervical/transformation zone present. Procedures/Addenda: Human Papilloma Virus, High-Risk (Any Dx) Status: Signed Out Interpretation: Negative Methodology: Soniqplay Aptima HPV mRNA assay (Nucleic Acid Amplification Test, NAAT). Clinical History: Date of Last Menstrual Period: not available Menstrual History: not available Contraceptive History: not available Ancillary Testing: HPV (any dx) Case imaged by the WildBlue Imaging System with manual rescreening or review. Performed at [facility] Clinical History (other): ANNUAL, ROUTINE SCREEN, V76.2 Phone #: [phone], On-Call Pathologist: [id number] us Provider [facility] - PATHOLOGY AND CYTOLOGY AMB ULATORY Final Result [facility] [address] [place] [address], from Last 3 Months or Most Recently Relevant to Health Maintenance Insurance [facility] Care Teams Videotape Operator Relationship Specialty Start Date End Date Jet Gomez PA [address] [place] [address] PCP - General Internal Medicine 06/05/18
--- OUTSIDE RECORDS SUMMARY | 2024-08-25 11:23 | XMS_ITS | Data Portability ---
Author Organization RIYA Newell seng [address] Address [address] [place] [address] Assessment No assessment recorded. Plan of Treatment Reminders Order Date Submit Date Provider Last Modified By Organization Details Last Modified Time Details Appointments None recorded. Lab None recorded. Referral orthopedic surgeon referral - pain left thumb and hand . not getting better failing conservativ e treatment. need further evaluation. x-ray left hand shows foreign body left hand 2023 024 [email or web address] 48 [facility], [address], [place], [address], 19:37:24 Procedures None recorded. Surgeries None recorded. Imaging XR, hand, 3 or more view 2023 024 [email or web address] [address] [facility], [address] [place], [address], 4 19:37:24 XR, shoulder, 2 or more view 2023 024 [email or web address] 48 [facility], [address] [place], [address], 4 19:37:24 Medication Orders None recorded. Patient TargetsNo targets recorded. Patient Instructions Encounter Date Encounter Id Patient Instructions Last Modified By Organization Details Last Modified Time 09/29/2023 [id number] shoulder pain: care instructions [email or web address] Not available 09/29/2023 18:16:07 Reason for Referral [...] ed. [email or web address] [facility] [address] [place], [address], 09/30/2023 12:26:53 09/29/19 24 09/29/2023 XR, shoul blake, 2 or more view No observ ation record ed. [email or web address] [facility] [address] [place], [address], 09/30/2023 12:26:54 Result Notes None recorded. Problems Name Problem SNOMED Code Status Onset Date Resolution Date Notes Provider Name and Address Organization Details Recorded Time Pain of right shoulder joint [id number] 00 Active 2023 Charles Mcdermott NP [address] , [place], [address], [place] - [facility] 4 18:13:52 Pain of left hand 950592423875989 Active 2023 Charles Mcdermott NP [address] , [place], [address], [place] - [facility] 4 [...] Heart rate Body temperature Respiratory rate Systolic And Diastolic Provider Name and Address Organization Details Last Updated DateTime 154.94 cm 37.8 kg/m2 47689.4 7 g 95 % 95 % 84 /min 98.2 [degF] 16 /min 121/79 mm[Hg] Ismael Rogers [facility] 17:59:48 Social History Question Answer Notes LastModified by Mass Vector Details LastModified Time Tobacco Smoking Status Never Smoker RIYA [facility] 09/29/2023 17:55:00 Have You Had A [...] SNOMED-CT Code Diagnosis ICD10 Code Diagnosis Note [id number] [address] [place] [address] 07/05/2015 16:40:28 07/05/2015 18:31:06 [id number] Charles Mcdermott, PERSONAL FINANCIAL REPRESENTATIVE [address] [place] [address] 09/29/2023 17:31:06 09/29/2023 19:37:24 Pain of right shoulder joint [id number] M25.511 You can hurt your shoulder by [...] lift anything heavy. Pain of left hand 056092 9964 01322 M79.642 A hand can break (fracture) during [...] Kendall Member ID Guarantor Name 09/29/2023 2 [facility] (MEDICAID REPLACEMENT - HMO) [id number] Sera Acosta [id number] Sera Acosta 09/29/2023 1 [facility] (INDEMNITY) [id number] Irwin Acosta [id number] Sera Acosta Notes Date Note Type [...] Mcdermott NP [address] [place], [address], [place] - [facility] 10/01/2023 08:13:10 OBGyn Episode No OBEpisode recorded.
== END 2024-08-25 11:51 | disposition home or self-care (01) ==
LOC: HO.HGI 10:42
PROVIDERS: PCP Physician Assistant; Visit Provider Nurse Practitioner Family
DX: D12.6 Benign neoplasm of colon, unspecified (principal); K21.9 Gastro-esophageal reflux disease without esophagitis; K62.3 Rectal prolapse
CPT/HCPCS: 99215

== ENCOUNTER 2024-10-27 12:28 | Outpatient (AMB) | payer OTHER, SELFPAY ==
--- NOTE | 2024-10-27 12:46 | MHC.OFFVIS ---
Vital Signs 10/27/24 12:56 Height 5 ft 1 in Weight 205 lb BMI 38.7 BP 154/72 H Blood Pressure Location Rt brachial Position Sitting Pulse 70 Intake Visit Reasons: Rectal prolapse Intake Note: Patient referred by Idalmis AKINS for rectal prolapse. Patient c/o: on and off constipation. hx of colonoscopy August 2024. States internal hemorrhoids noticed during colonoscopy. Of note: patient had thyroid surgery on 10-25-2024 @ [facility]. Locator Required: No Accompanied by: Self / Same As Patient Allergies No Known Allergies Allergy (Verified 10/27/24 12:55) Medication List - Last Reconciled 10/27/24 by Denny Moran MD acetaminophen ER mg PO PRN rtvruryip-gplphgle-xjpzrwr ala 50-200-25 mg (Biktarvy) 1 tab PO DAILY ketoconazole 2% appl topical BID HPI HPI Rectal prolapse: Details: 54 year old female referred for prolapsing hemorrhoids. She had a colonoscopy last August, he had Dr. March. She was noted to have internal hemorrhoids with note of some prolapse. She was therefore referred to me. She actually says she has no problems with her anus. She denies any pain, swelling or bleeding She says she had hemorrhoid surgery about 5 years ago in [place]. She says she has been doing well since that time. She denies significant constipation. She also just had thyroidectomy in [facility] 4 days ago. [facility]LY [facility], [facility] Medical History (Updated 10/27/24 @ 13:18 by Denny Moran MD) Internal and external prolapsed hemorrhoids Rectal prolapse Hiatal hernia Tubular adenoma of colon Morbid obesity with BMI of 40.0-44.9, adult HIV (human immunodeficiency virus infection) Change in stool Blood in stool Constipation Acid reflux Colon cancer screening Surgical History H/O thyroidectomy Hx of hand surgery Hx of carpal tunnel repair Hx of colonoscopy Family History Mother Heart disease Social History Household Members: Family Patient Tobacco Use Status: Never used Tobacco Review of Systems Const Denies chills and Denies fever(s) Card Denies chest pain, Denies dyspnea and Denies dyspnea on exertion Resp Denies cough, Denies dyspnea and Denies dyspnea on exertion GI Denies hematochezia and Denies change in bowel habits Denies hematuria Musc Denies back pain and Denies limited range of motion Neuro Denies focal weakness and Denies convulsions Psych Denies depression and Denies mood swings Physical Exam Vital Signs: Last Vital Signs Pulse 70 10/27/24 12:56 BP 154/72 H 10/27/24 12:56 BMI result Body Mass Index 38.7 Const General: comfortable and no acute distress Nutritional Appearance: obese Orientation/consciousness: patient oriented x3 Neck Other: Has well healing incision on the anterior neck from her recent thyroidectomy Neck: Yes no lymphadenopathy Resp Auscultation: clear to auscultation bilaterally Cardio Rhythm: regular rhythm GI Other: Rectal exam shows internal external hemorrhoid with some mucosal prolapse Palpation (GI): Soft to palpation, nontender and no guarding Neuro General: patient oriented x3 Office Procedures Anoscopy She was in kneeling chelsi-knife position. The anoscope was gently inserted. A full examination of the anal canal was done. She did have mixed internal and external hemorrhoidal columns on both the left and right side with some mucosal prolapse. There were no lesions seen. There was no bleeding or ulceration. Good sphincter tone. There was no induration felt. [id number] Assessment & Plan Assessment & Plan (1) Internal and external prolapsed hemorrhoids: Code(s): K64.8 - Other hemorrhoids Category: Medical Plan: She has internal external hemorrhoids with some prolapse of the mucosal component. She denies any problems with this. She denies any pain, swelling, bleeding or any significant complaints. She says that she does not have any constipation She does not want any surgical intervention her hemorrhoids. I told her that she is welcome to come back to the office down the line if she wants to be re-evaluated for possible hemorrhoidectomy. She is comfortable with the plan. Coding Level of Care Code New Pt Level 3 (26598) Diagnoses Internal and external prolapsed hemorrhoids K64.8 CPT Codes Details - CPT: 85295-Vtdbzgrw ([id number])
[2024-10-27 12:56] VITALS: BP 154/72; PULSE 70; BMI 38.7
--- OUTSIDE RECORDS SUMMARY | 2024-10-27 16:43 | XMS_ITS | Encounter Summary ---
Author Organization [facility] Address [address] [place] [address] Care Team Providers Care Cyber Analyst Name Role Phone Jet Gomez Primary Care Provider [phone] Reason for Visit * Reason Onset Date Comments Care Call 10/12/2024 Encounter Details Date Type Department Care Team ([facility] st Contact Info) Description 10/12/2024 Results Follow-Up [facility] [address] [place] [phone] Reyes Tony NP [address] [place] [address] Social History Tobacco Use Types Packs/Day Years Used Date Smoking Tobacco: Never Passive Smoke Exposure: Never Smokeless Tobacco: Never Alcohol Use Standard Drinks/Week Comments Never 0 [...] Orientation Straight 11/28/2016 2: 23 PM PDT documented as of this encounter Nursing Notes * Christine Mckenna RN - 10/27/2024 1:37 PM EDT Pt informed, [place] for MMR scheduled. * Christine Mckenna RN - 10/27/2024 1:37 PM EDT ----- Message from Reyes Tony sent at 10/12/2024 6:17 AM EDT ----- Good morning can you please reach out to patient and let them know labs came back showing: -A1c of 5.7 (prediabetic) meaning their blood sugar levels are higher than normal but not yet in the diabetes range. Prediabetes is a warning sign that they are at risk for getting type 2 diabetes. The good news is that with lifestyle changes, they can prevent it from progressing to type 2 diabetes. Simple modifications such as regular exercise, a balanced diet low in sugar and refined carbs, and maintaining a healthy weight are marquez steps. -Patient is not immune to Mumps and Rubella and will need nurse visit for vaccines. Thank you ----- Message ----- From: Incoming Ancillary Results And Orders - Lab Results From [facility] Sent: 10/09/2024 3:38 AM EDT To: Reyes Tony NP documented in this encounter Plan of Treatment Upcoming Encounters Date Type Department Care Team (Late st Contact Info) Description 11/16/2024 1:40 PM EDT Office Visit [facility] [address] [place] [phone] documented as of this encounter Visit Diagnoses Not on filedocumented in this encounter Additional Health Concerns Assessment Noted Time PHQ-9 Depression Total Score: 4 12/23/19 24 2:08 PM PST A Depression follow-up plan has been documented for the patient 10/07/2024 7:19 PM PDT documented as of this encounter Care Teams Cyber Analyst Relationship Specialty Start Date End Date Jet Goemz PA [address] [place] [address] PCP - General Internal Medicine 06/05/18 documented as of this encounter
--- OUTSIDE RECORDS SUMMARY | 2024-10-27 16:43 | XMS_ITS ---
Author Name [facility] Organization Unknown History of Medication Use Medication Directions Dispensed Refills Start Date End Date Stat diclofenac-capsaicin 2-0.025 % combo pack Apply 1 g 3 times a day by topical route as needed for 30 days. 07/14/2024 active acetaminophen (TYLENOL 8 HOUR) 650 mg 8 hr tablet PLEASE SEE ATTACHED FOR DETAILED DIRECTIONS active Biktarvy 50-200-25 mg per tablet Take 1 tablet by mouth 1 (one) time each day. active hydrocortisone (ANUSOL-HC) 2.5 % rectal cream APPLY RECTALLY 2 TIMES DAILY. active ibuprofen (ADVIL,MOTRIN) 600 mg tablet TAKE 1 TABLET BY MOUTH 4 TIMES A DAY FOR 7 DAYS active Immunizations Vaccine Date Source Lot Number Status Influenza trivalent, 0.5mL, preservative free (Fluarix; FluLaval; Fluzone) ages 6mo and older (Afluria) 3 years and older 01/06/2011 [facility] [id number] completed MMR, measles mumps and rubel la Live (Priorix; M-M-R II) 12mo and older 05/11/2009 [facility] [id number] completed MMR, measles mumps and rubel la Live (Priorix; M-M-R II) 12mo and older 05/10/2008 [facility] [id number] completed PPD Test 05/10/2008 [facility] [id number] completed Influenza trivalent, 0.5mL, preservative free (Fluarix; FluLaval; Fluzone) ages 6mo and older (Afluria) 3 years and older 11/10/2007 [facility] [id number] completed Tdap Tetanus diptheria acell ular pertussis (Boostrix; Adacel) 7yo and older 12/03/2006 [facility] [id number] completed Influenza trivalent, 0.5mL, preservative free (Fluarix; FluLaval; Fluzone) ages 6mo and older (Afluria) 3 years and older 12/02/2006 [facility] completed Pneumococcal polysaccharide 23 valent (Pneumovax 23) 2yo and older 12/02/2006 [facility] 0486U com pleted
--- OUTSIDE RECORDS SUMMARY | 2024-10-27 16:43 | XMS_ITS | Clinical Summary ---
Author Organization [facility] Address [address] [place] [address] Care Team Providers Care Compress Engineer Name Role Phone Jet Gomez Primary Care Provider [phone] Source Comments PLEASE NOTE, if this patient is a minor, it may be UNLAWFUL to discuss sensitive information that is contained in these records (such as FAMILY PLANNING, MENTAL HEALTH or SUBSTANCE ABUSE) with the minor patient's parent or other person without the patient's specific authorization.[facility] Allergies No known active allergies Medications BIKTARVY 50-200-25 mg tabIndications :Asymptomatic HIV infection ([facility]) TAKE 1 TABLET BY MOUTH EVERY DAY 30 Tablet 11 5 Active cyclobenzaprin e (FLEXERIL) 10 mg tabletIndicati ons:Neck pain on left side Take 1 Tablet by mouth 3 (three) times daily as needed for muscle spasms. 30 Tablet 1 5 Active diclofenac sodium (VOLTAREN) 1 % gelIndications :Neck pain on left side Apply 2 g topically 2 (two) times daily. 100 g 2 5 Active clotrimazole 1 % vaginal creamIndicatio ns:Groin rash Place 1 Applicatorful vaginally nightly at bedtime. 45 g 5 Active clotrimazole (LOTRIMIN) 1 % creamIndicatio ns:Groin rash Apply topically 2 (two) times daily To abdominal folds. 45 g 5 Active azelastine (ASTELIN) 137 mcg (0.1 %) nasal sprayIndicatio ns:Right ear pain Place 1 Nichols into the nostril(s) 2 (two) times daily. 30 mL 1 5 Active fexofenadine (KENZIE) 180 mg tabletIndicati ons:Right ear pain Take 1 Tablet by mouth once daily. 90 Tablet 5 Active naproxen (NAPROSYN) 500 mg tablet Take 1 Tablet by mouth 2 (two) times daily as needed for other reason (pain). 30 Tablet 1 5 Active famotidine (PEPCID) 20 mg tablet Take 1 Tablet by mouth daily. 90 Tablet 1 5 Active Active Problems Problem Noted Date Diagnosed Date Prediabetes 10/12/2024 Hiatal hernia 09/03/2024 History of colon polyps 09/02/2024 Overview (09/02/2024): Tubular adenoma at [facility] August 2024- recommended recall in 7 years Papillary carcinoma of thyroid ([facility]) 0 09/02/2024 Non morbid obesity 09/26/2021 Varicose veins of both lower extremities with in flammation 09/26/2021 Abnormal cervical Papanicolaou smear 09/26/2021 Abnormal uterine bleeding 09/26/2021 Carpal tunnel syndrome of right wrist 09/26/2021 Accessory skin tags 09/26/2021 Benign mole [...] were removed years ago but bleeding reoccurred. Prolapsed internal hemorrhoids with spontaneous retraction 12/06/2018 [...] hours. Chronic hepatitis C without hepatic coma ([facility]) 05/27/2018 Overview (06/07/2018): Images from the original [...] rupture of tympanic membrane 05/02/2016 HIV infection ([facility] 02/17/1996 Overview (09/26/2021): Diagnosed many years ago, [facility] Resolved Problems Problem Noted Date Diagnosed Date Resolved Date Routine adult health maintenance 09/26/2021 09/02/2024 Hemorrhoids, external without complications 12/06/2018 09/02/2024 Upper respiratory infection, acute 07/06/2018 10/05/2020 Encounters Date Type Department Care Team Description 10/12/2024 Results Follow-Up [address] [address] Reyes Tnoy NP 10/07/2024 3:00 PM EDT Office Visit [address] [address] Reyes Tony NP 09/27/2024 4:20 PM EDT Office Visit [address] [address] Nabila Landry FNP 09/23/2024 9:20 AM EDT Office Visit [address] [address] Reyes Tony NP 09/02/2024 9:20 AM EDT Office Visit [address] [address] PatriciaFeliz ramos FNP 07/29/2024 8:20 AM EDT Telemedicine Visit [address] [address] Teodora Lubin PA-C from Last 3 Months Immunizations Immunization Administration Dates Next Due Flu, Preservative Free 12/30/2021,2019,12/03/2017,12/10 Hep B, Adult/Adol (GOAGBKJ-P-SHGVG/RECOMBIVAX-ADULT) 09/27/2020,11/24/2018,07/05/2018,05/31 Hep B,adult,adjuvanted (HEPLISAV) 04/14/2022, INFLUENZA, SEASONAL, [...] Sign Reading Time Taken Comments Blood Pressure 126/82 10/07/2024 2:59 PM EDT Pulse 80 10/07/2024 2:59 PM EDT Temperature 36.9 C (98.4 F) 10/07/2024 2:59 PM EDT Respiratory Rate 18 10/07/2024 2:59 PM EDT Oxygen Saturation 97% 10/07/2024 2:59 PM EDT Inhaled Oxygen Concentration - - Weight 94.4 kg (208 lb 1.6 oz) 10/07/2024 2:59 P M EDT Height 154.9 cm (5' 1 ) 10/07/2024 2:59 PM EDT Body Mass Index 39.32 10/07/2024 2:59 PM EDT Plan of Treatment Upcoming Encounters Date Type Department Care Team (Late st Contact Info) Description 11/16/2024 1:40 PM EDT Office Visit [facility] [address] [place] [address] Health Maintenance Due Date Last Done Comments CT Colonography 2013 Colonoscopy 2013 FIT/gFOBT 2013 Flexible Sigmoidoscopy 2013 Colorectal Cancer Screening 09/06/2024 [id number] ( season) 2024 12/30/2021, 03/22/2021, 08/16/2020, Additional history exists Breast Cancer Screening (Mammogram) 11/27/2024 11/28/2023, 11/22/2022, 11/19/2021, Additional history exists Pap Smear 01/17/2025 01/17/2022, 03/2021, 05/06/2017, Additional history exists Annual Wellness (Adult): Indicated (All Coverage) 10/07/2025 10/07/2024, 12/15/2022, 09/26/2021, Additional history exists Anxiety Screening 10/07/2025 10/07/2024 Hypertension Screening (#1) 10/07/2025 Tobacco Screening 10/07/2025 10/07/2024, 07/31/2016 Diabetes Screening 10/08/2025 10/08/2024, 0 05/27/2024, 10/23/2023, Additional history exists Lipid Screening 10/08/2025 10/08/2024, 10/2021, 07/04/2020, Additional history exists Imm-Meningococcal (3 - Risk 2-dose series) 05/20/2026 05/20/2021, 09/27/2020 Imm-DTaP/Tdap/Td (3 - Td or Tdap) 09/01/2026 09/01/2016, 12/03/2006 Cervical Cancer Screening 01/17/2027 HPV Screening 01/17/2027 01/17/2022, 05/06/2017 Pap + HPV 01/17/2027 01/17/2022, 03/2021, 08/04/2018, Additional history exists Fecal DNA 09/06/2027 09/05/2024, 09/05/2024 Imm-MMR Completed 09/01/2016, 04/17, 05/10/2008 Imm-Zoster, Recombinant Completed 11/27/2020, 09/27 Imm-Hepatitis B Completed 04/14/2022, 02/17, 09/27/2020, Additional history exists Imm-Influenza Discontinued 10/23/2023, 12/17, 12/19/2019, Additional history exists Imm-Pneumococcal 50+ Completed 10/23/2023, 05/21/2018, 01/21/2012, Additional history exists Syphilis Screening Discontinued 05/27/2024, 0 06/01/2023, 04/14/2022, Additional history exists Alcohol and Drug Screen Completed 10/08/19 25, 11/25/2023, 12/15/2022, Additional history exists Depression Annual Screen Completed 025, 12/15/2022, 08/27/2017, Additional history exists Cervical Ablation/Cold-Knife Conization Discontinued Cervical Cryotherapy Discontinued Colposcopy Discontinued Endometrial Biopsy Discontinued Excision/Leep Discontinued HPV Genotyping Discontinued Imm-HIB Aged Out No longer eligi ble based on patient's age to complete this topic Imm-Hepatitis A Discontinued Vaginal Pap Discontinued Vulvoscopy Discontinued Procedures Procedure Name Priority Date/Time Associated Diagnosis Comments HEMOGLOBIN GLYCOSYLATED A1C Routine 10/08/2024 9:08 AM EDT MEASLES/MUMPS/RUBELLA IMMUNITY Routine 10/08/2024 9:08 AM EDT Immunity status testing LIPID PANEL Routine 10/08/2024 9:08 AM EDT Screening for heart disease HEALTH HISTORY SCANNED DOCUMENT 10/03/2024 3:00 AM EDT REFERRAL TO ENDOCRINOLOGY Urgent 09/30/2024 3:00 AM EDT Papillary carcinoma of thyroid ([facility]) COLORECTAL CANCER SCREENING STOOL DNA, ABSTRACTED Routine 09/05/2024 8:44 AM EDT COLORECTAL CANCER SCREENING STOOL DNA, ABSTRACTED Routine 09/05/2024 8:40 AM EDT REFERRAL SCANNED DOCUMENT 08/25/2024 3:00 AM EDT REFERRAL SCANNED DOCUMENT 08/25/2024 3:00 AM EDT ULTRASOUND THYROID FINE NEEDLE ASPIRATION Routine 08/23/2024 3:00 AM EDT Nodule of right lobe of thyroid gland SYPHILIS ANTIBODY CASCADING REFLEX Routine 05/27/2024 12:15 PM EDT HIV infection, unspecified symptom status ([facility]) Chronic hepatitis C without hepatic coma ([facility]) HISTORIC MAMMOGRAM 11/28/2023 3: 00 AM EDT PAP SMEAR W/HPV, ABSTRACTED Routine 01/17/2022 from Last 3 Months or Most Recently Relevant to Health Maintenance Results * (ABNORMAL) MEASLES/MUMPS/RUBELLA IMMUNITY Routine (10/08/2024 9:08 AM EDT) MEASLES IGG AB (RUBEOLA) 130.00 AU/mL 10/10/2024 7:31 PM EDT [facility] MUMPS VIRUS ANTIBODY (IGG) <9.00(L) AU/mL 10/10/2024 7:31 PM EDT [facility] RUBELLA IMMUNE STATUS <0.90(L) Index 10/10/2024 7:31 PM EDT [facility] Blood Blood / Unknown 10/08/2024 9 :08 AM EDT 10/09/2024 2:03 AM EDT Narrative [facility] - 10/10/2024 7:39 PM EDT FASTING:YES AU/mL Interpretation ----- <13.50 Not consistent with immunity 13.50-16.49 Equivocal >16.49 Consistent with immunity . The presence of measles IgG suggests immunization or past or current infection with measles virus. . For additional information, please refer to http://education.[facility]/faq/TMM030 (This link is being provided for informational/ educational purposes only.) . AU/mL Interpretation ------- <9.00 Not consistent with immunity 9.00-10.99 Equivocal >10.99 Consistent with immunity . The presence of mumps IgG antibody suggests immunization or past or current infection with mumps virus. . Index Interpretation ----- <0.90 Not consistent with immunity 0.90-0.99 Equivocal > or = 1.00 Consistent with immunity . The presence of rubella IgG antibody suggests immunization or past or current infection with rubella virus. us Reyes Tony NP LAB - BLOOD DRAW Final Result [facility] [address] [place] [id number], [employer] [facility] [address] [place] [address] * (ABNORMAL) HEMOGLOBIN GLYCOSYLATED A1C Routine (10/08/2024 9:08 AM EDT) [facility] HEMOGLOBIN A1C 5.7(H) <5.7 % 10/09/2024 3:37 AM EDT [employer] [facility] 10/08/2024 9:08 AM EDT 10/09/2024 2:18 AM EDT Narrative [facility] - 10/09/2024 3:37 AM EDT FASTING:YES For someone without known diabetes, a hemoglobin A1c value between 5.7% and 6.4% is consistent with prediabetes and should be confirmed with a follow-up test. . For someone with known diabetes, a value <7% indicates that their diabetes is well controlled. A1c targets should be individualized based on duration of diabetes, age, comorbid conditions, and other considerations. . This assay result is consistent with an increased risk of diabetes. . Currently, no consensus exists regarding use of hemoglobin A1c for diagnosis of diabetes for children. . us Reyes Tony NP LAB - BLOOD DRAW Final Result [facility] [address] [address], [employer] [address] [address] * (ABNORMAL) LIPID PANEL Routine (10/08/2024 9:08 AM EDT) [facility] CHOLESTEROL, TOTAL 185 <200 mg/dL 10/09/2024 4:40 AM EDT [facility] HDL CHOLESTEROL 54 > OR = 50 mg/dL 10/09/2024 4:40 AM EDT [facility] TRIGLYCERIDES 130 <150 mg/dL 10/09/2024 4:40 AM EDT [facility] LDL-CHOLESTEROL 106(H) mg/dL (calc) 10/09/2024 4:40 AM EDT [facility] CHOL/HDLC RATIO 3.4 <5.0 (calc) 10/09/2024 4:40 AM EDT [facility] NON-HDL CHOLESTEROL 131(H) <130 mg/dL (calc) 10/09/2024 4:40 AM EDT [facility] Blood Blood / Unknown 10/08/2024 9 :08 AM EDT 10/09/2024 2:03 AM EDT Narrative [facility] - 10/09/2024 4:58 AM EDT FASTING:YES Reference range: <100 . Desirable range <100 mg/dL for primary prevention; <70 mg/dL for patients with CHD or diabetic patients with > or = 2 CHD risk factors. . LDL-C is now calculated using the Carie calculation, which is a validated novel method providing better accuracy than the Friedewald equation in the estimation of LDL-C. Juan SS et al. EMMIE. 2013;310(20): 9575-7959 (http://education.[facility]/faq/VUV900) For patients with diabetes plus 1 major ASCVD risk factor, treating to a non-HDL-C goal of <100 mg/dL (LDL-C of <70 mg/dL) is considered a therapeutic option. Reyes Tony NP LAB - BLOOD DRAW Final Result [facility] [address] [place] [id number], [employer] [address] [address] * HEALTH HISTORY SCANNED DOCUMENT (10/03/2024 3:00 AM EDT) 10/03/2024 3:00 AM EDT Choh Provider Default SCAN OTHER ORDERS Final Re sult * REFERRAL TO ENDOCRINOLOGY (09/30/2024 3:00 AM EDT) 09/30/2024 3:00 AM EDT Feliz Gomez PSYCHOLOGICAL TESTS SALES AGENT REFERRAL Final Res ult * COLORECTAL CANCER SCREENING STOOL DNA Stool Stool Routine (09/05/2024 8:44 AM EDT) Only the most recent of2 resultswithin the time period is included. Stool Stool specimen / Unknown Provider [facility] BODY FLUIDS AND STOOLS AMBUL ATORY Final Result * REFERRAL SCANNED DOCUMENT (08/25/2024 3:00 AM EDT) Only the most recent of2 resultswithin the time period is included. 08/25/2024 3:00 AM EDT Jet RITTER SCAN REFERRAL Final Result * ULTRASOUND THYROID FINE NEEDLE ASPIRATION (08/23/2024 3:00 AM EDT) 08/23/2024 3:00 AM EDT Jet RITTER IMG ULTRASOUND Final Result * SYPHILIS ANTIBODY CASCADING REFLEX (05/27/2024 12:15 PM EDT) T. PALLIDUM AB, EIA NEGATIVE NEGATIVE [facility] Comment: No antibodies to T. pallidum (the agent causing syphilis) were detected in the specimen. This result, however, does not exclude very recent T. pallidum infection; testing of a second specimen, collected 2-4 weeks after this specimen, is recommended if the index of suspicion for recent infection is high. Blood Blood / Unknown 05/27/2024 1 2:15 PM EDT 05/27/2024 12:16 PM EDT Narrative [facility] - 05/31/2024 6:12 PM EDT FASTING:NO Teodora Lubin PA-C LAB - BLOOD DRAW Edited Resu lt - Final [facility] [address] [place] [id number], [employer] 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 TANKER TRUCK DRIVER PAP Test Result date: January 17, 2022 22:04 EST Result status: Auth (Verified) Result title: Cytology Reports OTR TANKER TRUCK DRIVER PAP Test Encounter info: [id number], [facility], Discharged OutPatient, 01/17/2022 - 01/17/2022 Contributor system: [employer] * Final Report * Cytology Reports OTR TANKER TRUCK DRIVER PAP Test Patient Name: RUTH MCKEON Patient : 1970 (Age: 51) Lab Collection Date: 01/17/2022 Accession Date: 01/17/2022 Sign Out Date: 01/22/2022 Tissue Source: 1: THINPREP OTR TANKER TRUCK DRIVER PAP TEST, CERVICAL: Final Diagnosis: NEGATIVE FOR INTRAEPITHELIAL LESION OR MALIGNANCY. Satisfactory for evaluation. Endocervical/transformation zone present. Procedures/Addenda: Human Papilloma Virus, High-Risk (Any Dx) Status: Signed Out Interpretation: Negative Methodology: [facility] [employer]ima HPV mRNA assay (Nucleic Acid Amplification Test, NAAT). Clinical History: Date of Last Menstrual Period: not available Menstrual History: not available Contraceptive History: not available Ancillary Testing: HPV (any dx) Case imaged by the MCE-5 Development Imaging System with manual rescreening or review. Performed at [facility] department of Cytology, [facility] Clinical History (other): ANNUAL, ROUTINE SCREEN, V76.2 Phone #: [phone], On-Call Pathologist: [id number] Provider [facility] - PATHOLOGY AND CYTOLOGY AMB ULATORY Final Result [facility] [address] [place] [address], from Last 3 Months or Most Recently Relevant to Health Maintenance Insurance [employer] ([facility]) Care Teams Compress Engineer Relationship Specialty Start Date End Date Jet Gomez PA [address] [place] [address] PCP - General Internal Medicine 06/05/18
== END 2024-10-27 13:13 | disposition home or self-care (01) ==
LOC: HO.HGS 12:28
PROVIDERS: PCP Physician Assistant; Visit Provider Surgery
DX: K64.8 Other hemorrhoids (principal)
CPT/HCPCS: 46600; 99203

== ENCOUNTER → 2024-10-27 12:28 | Outpatient (BNVA) | payer OTHER, SELFPAY | PROVIDERS: PCP Physician Assistant; Visit Provider Surgery | DX: K64.8 Other hemorrhoids (principal) | CPT/HCPCS: 46600 ==

== ENCOUNTER 2024-11-25 10:25 | Outpatient (AMB) | payer OTHER, SELFPAY ==
[2024-11-25 10:43] VITALS: BP 135/79; PULSE 63; O2SAT 98; BMI 38.7
--- NOTE | 2024-11-25 10:43 | MHC.OFFVIS ---
Vital Signs 11/25/24 10:43 Height 5 ft 1 in Weight 205 lb BMI 38.7 BP 135/79 Blood Pressure Location Lt brachial Position Sitting Pulse 63 Pulse Oximetry (%) 98 Oxygen Delivery Method Room Air Intake Visit Reasons: 3 mo f/u Barium Swa. results Intake Note: Patient follow up for acid reflux Patient cc: abdominal bloating, heartburn, X 2 dates patient is been coughing a little of blood on and off, between diarrhea and constipation. Denies any other GI issue for today visit. Fur Cutting Machine Operator Required: No Accompanied by: Self / Same As Patient Allergies No Known Allergies Allergy (Verified 10/27/24 12:55) HPI HPI 3 mo f/u Barium Swa. results: Details: Patient is a 53-year-old female with PMH of obesity and HIV. F/u for GERD, dysphagia, and rectal prolapse/hemorrhoids. Since last visit in August, pt reports overall improvement in heartburn, now only occasional and less severe, primarily managed with milk or infrequent TUMS. No new or worsening dysphagia. Saw Gen Surg (Dr. Moran) on 10-27, evaluated for rectal prolapse/hemorrhoids; no acute issues but previously declined hemorrhoidectomy, now wishes to proceed. Continues to experience constipation, managed adequately with self-care, no need for laxatives or stool softeners, but at risk of exacerbating hemorrhoids. Pt had total thyroidectomy since last GI visit (outside facility); no reported complications. No new GI or constitutional complaints. No hospitalizations or ER/UC visits. REPLACED BY [facility] Medical History (Updated 11/25/24 @ 11:44 by Idalmis Weathers CNP) Internal and external prolapsed hemorrhoids Rectal prolapse Hiatal hernia Tubular adenoma of colon Morbid obesity with BMI of 40.0-44.9, adult HIV (human immunodeficiency virus infection) Change in stool Blood in stool Constipation Acid reflux Colon cancer screening Surgical History H/O thyroidectomy Hx of hand surgery Hx of carpal tunnel repair Hx of colonoscopy Family History Mother Heart disease Social History Household Members: Family Patient Tobacco Use Status: Never used Tobacco Review of Systems Const Reports as per HPI ENT Reports as per HPI Card Reports as per HPI Resp Reports as per HPI GI Reports as per HPI Reports as per HPI Physical Exam Vital Signs: Last Vital Signs Pulse 63 11/25/24 10:43 BP 135/79 11/25/24 10:43 Pulse Ox 98 11/25/24 10:43 Oxygen Delivery Method Room Air 11/25/24 10:43 BMI result Body Mass Index 38.7 Const General: healthy appearing, no acute distress and well developed Nutritional Appearance: average body habitus Orientation/consciousness: patient oriented x3 HEENT Head: Yes normal to inspection, Yes normocephalic and Yes atraumatic Face and sinus: Yes normal facial exam Eyes General: appearance normal, both eyes and all related structures Neck Neck: Yes normal visual inspection Resp Effort & Inspection: normal respiratory effort, able to speak in complete sentences, no tracheal deviation and symmetric chest movement Cardio Jugular venous distension: no JVD Heart sounds: no murmurs Neuro General: patient oriented x3 Gait exam (Neuro): Normal gait present Psych Appearance: grossly normal Mental Status: mental status grossly normal Speech and movement: Normal speech and movement present Affect: normal affect Attitude: cooperative Thought process: Normal thought process present Thought content: Normal thought content present Insight: Good insight present (Psych) Judgement: Good judgement present (Psych) Assessment & Plan Assessment & Plan (1) Constipation: Code(s): K59.00 - Constipation, unspecified Category: Medical Qualifiers: Constipation type: other constipation type Qualified Code(s): K59.09 - Other constipation Plan: Functional. Mild, pt self-managing effectively. No increase in severity; risk of exacerbating hemorrhoids/concurrent issue, so continued education. Additional Testing: None at this time. Medications: None necessary. Lifestyle Recommendations: Continue fiber and fluids, bowel regimen as needed to avoid constipation; provide handout for dietary fiber intake if not already done. Referrals / Coordination of Care: None. F/u Plan: Assess at next GI f/u. (2) Acid reflux: Comment: 08/18/2024 EGD- Gastritis, hiatal hernia Code(s): K21.9 - Gastro-esophageal reflux disease without esophagitis Category: Medical Qualifiers: Esophagitis presence: esophagitis presence not specified Qualified Code(s): K21.9 - Gastro-esophageal reflux disease without esophagitis Plan: Stable, infrequent sx with symptomatic improvement, minimal H2RA use, pt preference for conservative management. Additional Testing: Barium swallow pending to further eval hiatal hernia size and potential for repair. Medications: Reinforce use of TUMS or antacids prn; discuss possible PPI/H2RA if breakthrough or worsened sx. Lifestyle Recommendations: Continue small meals, avoid overeating/late meals, caffeine reduction, elevate HOB, avoid triggers; reiterate low-acid diet. Referrals / Coordination of Care: None unless barium swallow indicates need for Gen Surg input for hiatal hernia. F/u Plan: Review barium swallow results (12-09-24), phone follow-up for results, in-person f/u in 3 months (3) Internal and external prolapsed hemorrhoids: Code(s): K64.8 - Other hemorrhoids Category: Medical Plan: Mild sx, minimal discomfort. Pt preference has shifted to pursuing surg mgmt; surgical eval already done (10-27-24) with initial declination; pt now requesting procedure. Additional Testing: None required prior to consult. Medications: None initiated; continue conservative care for constipation. Lifestyle Recommendations: High fiber diet, hydration, avoid straining/constipation; reinforce bowel care education. Referrals / Coordination of Care: Continue Gen Surg coordination; facilitate scheduling with new surgeon after barium swallow to discuss both hemorrhoidectomy and hiatal hernia repair if indicated. F/u Plan: Follow up with GI post-op or to reassess, as aligns with surgical scheduling; GI f/u in 3 month (4) Hiatal hernia: Code(s): K44.9 - Diaphragmatic hernia without obstruction or gangrene Category: Medical Plan: As above Plan Follow-up in 3 months or sooner as needed Time: I spent a total of 22 minutes on the date of encounter which includes: Preparing to see the patient (reviewed previous documentation, test results and medical history) Performing a medically appropriate exam and/or evaluation Ordering medications, tests, and procedures Documenting clinical information in the health record Coding Level of Care Code Established Pt Est Pt Level 3 (65677) Patient Type Established Diagnoses Other constipation K59.09 Constipation type: other constipation type Gastroesophageal reflux disease, unspecified whether esophagitis present K21.9 Esophagitis presence: esophagitis presence not specified Internal and external prolapsed hemorrhoids K64.8 Hiatal hernia K44.9
== END 2024-11-25 11:36 | disposition home or self-care (01) ==
LOC: HO.HGI 10:25
PROVIDERS: PCP Physician Assistant; Visit Provider Nurse Practitioner Family
DX: K59.09 Other constipation (principal); K21.9 Gastro-esophageal reflux disease without esophagitis; K64.8 Other hemorrhoids; K44.9 Diaphragmatic hernia without obstruction or gangrene
CPT/HCPCS: 99213

== ENCOUNTER 2024-12-09 09:22 | Outpatient (REF) | payer OTHER, SELFPAY ==
--- NOTE | ~2024-12-09 | FL_ITS ---
EXAMINATION: XR BARIUM SWALLOW CLINICAL INFORMATION: Diaphragmatic hernia without obstruction or gangrene COMPARISON: None available. TECHNIQUE: Barium swallow was performed using thin and thick barium and effervescent granules. Barium tablet was also administered. FINDINGS: The swallowing mechanism is normal. No aspiration or penetration. Esophageal motility is normal. There is a small sliding-type hiatal hernia and Schatzki ring. No gastroesophageal reflux. No stricture or mass. No evidence of esophagitis seen. Barium tablet passed freely into the stomach. FLUOROSCOPY TIME: 1.34 minutes DOSE AREA PRODUCT: 1462 uGy-m2 (microgray-meter squared) FL/FL barium swallow IMPRESSION: Small sliding type hiatal hernia and Schatzki ring. Electronically signed by: Lawanda Capone MD 12/09/2024 11:33 AM EDT
--- OUTSIDE RECORDS SUMMARY | 2024-12-09 10:12 | XMS_ITS | Encounter Summary ---
Author Organization [facility] Address [address] [place] [address] Care Team Providers Care Welding Machine Operator Helper Arc Name Role Phone Jet Gomez Primary Care Provider [phone] Encounter Details Date Type Department Care Team ([facility] st Contact Info) Description 12/04/2024 Results Follow-Up [facility] [address] [place] [address] Feliz Gomez FNP [address] [place] [address] Social History Tobacco Use Types Packs/Day Years [...] PM PDT documented as of this encounter Plan of Treatment Upcoming Encounters Date Type Department Care Team (Late st Contact Info) Description 12/19/2024 2:20 PM EST Office Visit [facility] [address] [place] [address] documented as of this encounter Visit Diagnoses Not on filedocumented in this encounter Additional Health Concerns Assessment Noted Time PHQ-9 Depression Total Score: 4 12/23/19 24 2:08 PM PST A Depression follow-up plan has been documented for the patient 10/07/2024 7:19 PM PDT documented as of this encounter Care Teams Welding Machine Operator Helper Arc Relationship Specialty Start Date End Date Jet Gomez PA [address] [place] [address] PCP - General Internal Medicine 06/05/18 documented as of this encounter
--- OUTSIDE RECORDS SUMMARY | 2024-12-09 10:13 | XMS_ITS | Clinical Summary ---
Author Organization [facility] Address [address] [place] [address] Care Team Providers Care Needle Loom Weaver Name Role Phone Jet Gomez Primary Care Provider [phone] Source Comments PLEASE NOTE, if this patient [...] BY MOUTH EVERY DAY 30 Tablet 11 05/27/19 25 Active cyclobenzaprine (FLEXERIL) 10 mg tabletIndicatio ns:Neck pain on left side Take 1 Tablet by mouth 3 (three) times daily as needed for muscle spasms. 30 Tablet 1 09/03/19 25 Active diclofenac sodium (VOLTAREN) 1 % gelIndications: Neck pain on left side Apply 2 g topically 2 (two) times daily. 100 g 2 09/03/19 25 Active clotrimazole 1 % vaginal creamIndication s:Groin rash Place 1 Applicatorful vaginally nightly at bedtime. 45 g 09/03/19 25 Active clotrimazole (LOTRIMIN) 1 % creamIndication s:Groin rash Apply topically 2 (two) times daily To abdominal folds. 45 g 09/03/19 25 Active azelastine (ASTELIN) 137 mcg (0.1 %) nasal sprayIndication s:Right ear pain Place 1 Girard into the nostril(s) 2 (two) times daily. 30 mL 1 09/03/19 25 Active fexofenadine (KENZIE) 180 mg tabletIndicatio ns:Right ear pain Take 1 Tablet by mouth once daily. 90 Tablet 09/03/19 25 Active naproxen (NAPROSYN) 500 mg tablet Take 1 Tablet by mouth 2 (two) times daily as needed for other reason (pain). 30 Tablet 1 09/24/19 25 Active famotidine (PEPCID) 20 mg tablet Take 1 Tablet by mouth daily. 90 Tablet 1 09/30/19 25 Active azithromycin (ZITHROMAX Z-PARAMJIT) 250 mg tabletIndicatio ns:Pleural pain Take 2 tabs day 1 then 1 tab daily for 4 days thereafter. 6 Tablet 12/01/19 25 Active amoxicillin-pot clavulanate (AUGMENTIN) 875-125 mg per tabletIndicatio ns:Pleural pain Take 1 Tablet by mouth 2 (two) times daily for 5 days. 10 Tablet 12/01/19 25 025 Active Problems Problem Noted Date Diagnosed Date Prediabetes 10/12/2024 Hiatal hernia 09/03/2024 History of colon polyps 09/02/2024 Overview (09/02/2024): Tubular adenoma at [facility] August 2024- recommended recall in 7 years Hx of papillary thyroid carcinoma 09/02/2024 Overview (11/30/2024): Thyroidectomy at [facility] 2024 Non morbid obesity 09/26/2021 Varicose [...] (09/26/2021): Diagnosed many years ago, followed by [facility] ID on Biktar Resolved Problems Problem Noted Date Diagnosed Date Resolved Date Routine adult health maintenance 09/26/2021 09/02/2024 Hemorrhoids, external without complications 12/06/2018 09/02/2024 Upper respiratory infection, acute 07/06/2018 10/05/2020 Encounters Date Type Department Care Team Description 12/04/2024 Results Follow-Up [address] [phone] Feliz Gomez FNP 11/30/2024 10:00 AM EDT Office Visit [address] [phone] Feliz Gomez FNP 11/16/2024 1:40 PM EDT Office Visit [address] [phone] Christine Mckenna RN 10/12/2024 Results Follow-Up [address] [phone] Reyes Tony NP 10/07/2024 3:00 PM EDT Office Visit [address] [phone] Reyes Tony NP 09/27/2024 4:20 PM EDT Office Visit [address] [address] Nabila Landry FNP 09/23/2024 9:20 AM EDT Office Visit [address] [phone] Reyes Tony NP from Last 3 Months Immunizations Immunization Administration Dates Next Due Flu, Preservative Free 12/30/2021,2019,12/03/2017,12/10 Hep B, Adult/Adol (QEIICGF-S-ANCRY/RECOMBIVAX-ADULT) 09/27/2020,11/24/2018,07/05/2018,05/31 Hep B,adult,adjuvanted (HEPLISAV) 04/14/2022, INFLUENZA, SEASONAL, [...] Description 12/19/2024 2:20 PM EST Office Visit [facility] [address] [place] [id number] Health Maintenance Due Date Last Done Comments HPV Screening (self-collect) [address] Colonography 2013 Colonoscopy 2013 FIT/gFOBT 2013 Flexible Sigmoidoscopy 2013 Colorectal Cancer Screening 09/06/2024 Dys-[id number]-13 ( season) 2024 12/30/2021, 03/22/2021, 08/16/2020, Additional history exists Pap Smear 01/17/2025 01/17/2022, 03/2021, 05/06/2017, Additional history exists Annual Wellness (Adult): Indicated (All Coverage) 10/07/2025 10/07/2024, 12/15/2022, 09/26/2021, Additional history exists Anxiety Screening 10/07/2025 10/07/2024 Tobacco Screening 10/07/2025 10/07/2024, 07/31/2016 Lipid Screening 10/08/2025 10/08/2024, 12/0 10/2021, 07/04/2020, Additional history exists Hypertension Screening (#1) 11/30/2025 Breast Cancer Screening (Mammogram) 12/03/2025 12/03/2024, 11/28/2023, 11/22/2022, Additional history exists Diabetes Screening 12/05/2025 12/05/2024, 1 , 10/08/2024, Additional history exists Imm-Meningococcal (3 - Risk 2-dose series) 05/20/2026 05/20/2021, 09/27/2020 Imm-DTaP/Tdap/Td (3 - Td or Tdap) 09/01/2026 09/01/2016, 12/03/2006 Cervical Cancer Screening 01/17/2027 Pap + HPV 01/17/2027 01/17/2022, 1203/2021, 08/04/2018, Additional history exists Fecal DNA 09/06/2027 [...] Procedure Name Priority Date/Time Associated Diagnosis Comments HIV-1 RNA QUANT REAL TIME PCR, PLASMA Routine 12/05/2024 4:27 PM EDT HIV infection, unspecified symptom status COMPREHENSIVE METABOLIC PANEL Routine 12/05/2024 4:27 PM EDT HIV infection, unspecified symptom status LYMPHOCYTE SUBSET PANEL 5 Routine 12/05/2024 4:27 PM EDT HIV infection, unspecified symptom status BLOOD COUNT COMPLETE AUTO&AUTO DIFRNTL WBC Routine 12/05/2024 4:27 PM EDT HIV infection, unspecified symptom status HISTORIC MAMMOGRAM 12/03/2024 3: 00 AM EDT RADIOLOGIC EXAM CHEST 2 VIEWS Routine 11/30/2024 3:00 AM EDT Pleural pain REFERRAL SCANNED DOCUMENT 11/25/2024 3:00 AM EDT [...] 3:00 AM EDT Papillary carcinoma of thyroid ([facility]) COLORECTAL CANCER SCREENING STOOL DNA, ABSTRACTED Routine 09/05/2024 8:40 AM EDT SYPHILIS ANTIBODY CASCADING REFLEX Routine 05/27/2024 12:15 PM EDT HIV infection, unspecified symptom status ([facility]) Chronic hepatitis C without hepatic coma ([facility]) PAP SMEAR W/HPV, ABSTRACTED Routine 01/17/2022 from Last 3 Months or Most Recently Relevant to Health Maintenance Results * LYMPHOCYTE SUBSET PANEL 5 Routine (12/05/2024 4:27 PM EDT) % CD4 (HELPER CELLS) 51 30 - 61 % 12/08/2024 5:16 PM EDT [facility] ABSOLUTE CD4+ CELLS 1,484 490 - 1,740 cells/uL 12/08/2024 5:16 PM EDT [facility] ABSOLUTE LYMPHOCYTES 2,908 850 - 3,900 cells/uL 12/08/2024 5:16 PM EDT [facility] Blood Blood / Unknown 12/05/2024 4 :27 PM EDT 12/07/2024 2:07 AM EDT [facility] [place] - 12/08/2024 5:16 PM EDT FASTING:UNKNOWN Teodora Lubin PA-C LAB - BLOOD DRAW Final Resul t Performing Organization Address City/[facility]/ZIP Co de Phone Number [facility] [place] [address] [place], [place] , [facility] [place] [address] [place], [place] * HIV-1 RNA QUANT REAL TIME PCR, PLASMA Routine (12/05/2024 4:27 PM EDT) COPIES/ML NOT DETECTED NOT DETECTED copies/mL 12/07/2024 2:01 AM EDT [facility] LOG COPIES/ML NOT DETECTED NOT DETECTED Log copies/mL 12/07/2024 2:01 AM EDT [facility] Blood Blood / Unknown 12/05/2024 4 :27 PM EDT 12/06/2024 8:08 AM EDT [facility] - 12/07/2024 2:03 AM EDT FASTING:UNKNOWN . This test was performed using Real-Time Polymerase Chain Reaction. . Reportable Range: 20 copies/mL to 10,000,000 copies/mL (1.30 log copies/mL to 7.00 log copies/mL). us Teodora Lubin PA-C LAB - BLOOD DRAW Final Resul t Performing Organization Address [facility]/ZIP Co de Phone Number [facility] [address] [address], [facility] [address] [address] * BLOOD COUNT COMPLETE AUTO&AUTO DIFRNTL WBC Routine (12/05/2024 4:27 PM EDT) WHITE BLOOD CELL COUNT 8.2 3.8 - 10.8 Thousand/ uL 12/06/2024 4:49 AM EDT [facility] RED BLOOD CELL COUNT 4.24 3.80 - 5.10 Million/u L 12/06/2024 4:49 AM EDT [facility] HEMOGLOBIN 13.7 11.7 - 15.5 g/dL 12/06/2024 4:49 AM EDT [facility] HEMATOCRIT 41.1 35.0 - 45.0 % 12/06/2024 4:49 AM EDT [facility] MCV 96.9 80.0 - 100.0 fL 12/06/2024 4:49 AM EDT [facility] MCH 32.3 27.0 - 33.0 pg 12/06/2024 4:49 AM EDT [facility] MCHC 33.3 32.0 - 36.0 g/dL 12/06/2024 4:49 AM EDT [facility] RDW 12.5 11.0 - 15.0 % 12/06/2024 4:49 AM EDT [facility] PLATELET COUNT 213 140 - 400 Thousand/ uL 12/06/2024 4:49 AM [facility] MPV 10.8 7.5 - 12.5 fL 12/06/2024 4:49 AM EDTivix [facility] ABSOLUTE NEUTROPHILS 4,756 1,500 - 7,800 cells/uL 12/06/2024 4:49 AM EDTivix [facility] ABSOLUTE LYMPHOCYTES 2,706 850 - 3,900 cells/uL 12/06/2024 4:49 AM EDTivix [facility] ABSOLUTE MONOCYTES 467 200 - 950 cells/uL 12/06/2024 4:49 AM EDTivix [facility] ABSOLUTE EOSINOPHILS 189 15 - 500 cells/uL 12/06/2024 4:49 AM EDTivix [facility] ABSOLUTE BASOPHILS 82 0 - 200 cells/uL 12/06/2024 4:49 AM EDTivix [facility] NEUTROPHILS PCT 58 % 4:49 AM EDTivix [facility] LYMPHOCYTES 33.0 % 12/06/2024 4:49 AM EDTivix [facility] MONOCYTES 5.7 % 12/06/2024 4:49 AM EDTivix [facility] EOSINOPHILS 2.3 % 12/06/2024 4:49 AM EDTivix [facility] BASOPHILS 1.0 % 12/06/2024 4:49 AM [facility] Blood Blood / Unknown 12/05/2024 4 :27 PM EDT 12/06/2024 4:26 AM EDT [facility]arr[facility] - 12/06/2024 4:49 AM EDT FASTING:UNKNOWN For adults, a slight decrease in the calculated MCHC value (in the range of 30 to 32 g/dL) is most likely not clinically significant; however, it should be interpreted with caution in correlation with other red cell parameters and the patient's clinical condition. us Teodora Lubin PA-C LAB - BLOOD DRAW Final Resul t [employer] [address] [address], [facility] [address] [place] [address] * (ABNORMAL) COMPREHENSIVE METABOLIC PANEL Routine (12/05/2024 4:27 PM EDT) GLUCOSE 116(H) 65 - 99 mg/dL 12/06/2024 7:[address] [facility] UREA NITROGEN (BUN) 10 7 - 25 mg/dL 12/06/2024 7:39 AM EDbop[facility]fm CREATININE (blood) 0.61 0.50 - 1.03 mg/dL 12/06/2024 7:39 AM [facility]bop[facility]fm EGFR 105 > OR = 60 mL/min/1. 73m2 12/06/2024 7:39 AM [facility]fm BUN/CREATININE RATIO SEE NOTE: 6 - 22 (calc) 12/06/2024 7:39 AM [facility]op[facility]fm SODIUM 142 135 - 146 mmol/L 12/06/2024 7:39 AM [facility]bop[facility]fm POTASSIUM 4.1 3.5 - 5.3 mmol/L 12/06/2024 7:39 AM [facility]bop[facility]fm CHLORIDE 103 98 - 110 mmol/L 12/06/2024 7:39 AM [employer] [place]ON DIOXIDE 31 20 - 32 mmol/L 12/06/2024 7:39 AM [facility]bop[facility]fm CALCIUM 8.6 8.6 - 10.4 mg/dL 12/06/2024 7:39 AM [facility]bop[facility]fm PROTEIN, TOTAL 6.8 6.1 - 8.1 g/dL 12/06/2024 7:39 AM [facility] ALBUMIN 3.5(L) 3.6 - 5.1 g/dL 12/06/2024 7:39 AM EDT [facility] GLOBULIN 3.3 1.9 - 3.7 g/dL (calc) 12/06/2024 7:39 AM EDT [facility] ALBUMIN/GLOBULI N RATIO 1.1 1.0 - 2.5 (calc) 12/06/2024 7:39 AM EDT [facility] BILIRUBIN, TOTAL 0.5 0.2 - 1.2 mg/dL 12/06/2024 7:[address] [facility] ALKALINE PHOSPHATASE 67 37 - 153 U/L 12/06/2024 7:39 AM EDT [facility] AST 20 10 - 35 U/L 12/06/2024 7:39 AM EDT [facility] ALT 26 6 - 29 U/L 12/06/2024 7:39 AM EDT [facility] Blood Blood / Unknown 12/05/2024 4 :27 PM EDT 12/06/2024 5:07 AM EDT Narrative [employer] - 12/06/2024 7:39 AM EDT FASTING:UNKNOWN . Fasting reference interval . For someone without known diabetes, a glucose value between 100 and 125 mg/dL is consistent with prediabetes and should be confirmed with a follow-up test. . Not Reported: BUN and Creatinine are within reference range. . Teodora Lubin PA-C LAB - BLOOD DRAW Final Resul t [facility] [address] [place] [address], [address] [address] * HISTORIC MAMMOGRAM (12/03/2024 3:00 AM EDT) 12/03/2024 3:00 AM EDT us Jet RITTER IMG MAMMO Final Result * RADIOLOGIC EXAM CHEST 2 VIEWS (11/30/2024 3:00 AM EDT) 11/30/2024 3:00 AM EDT Feliz Patricia STONE DRESSER IMG XRAY Final Res ult * REFERRAL SCANNED DOCUMENT (11/25/2024 3:00 AM EDT) Only the most recent of2 resultswithin the time period is included. 11/25/2024 3:00 AM EDT Jet RITTER SCAN REFERRAL Final Result * REFERRAL TO GENERAL SURGERY (10/27/2024 3:00 AM EDT) 10/27/2024 3:00 AM EDT Heidi RITTER REFERRAL Final Result * (ABNORMAL) MEASLES/MUMPS/RUBELLA IMMUNITY Routine (10/08/2024 9:08 AM EDT) MEASLES IGG AB (RUBEOLA) 130.00 AU/mL 10/10/2024 7:31 PM EDT [facility] MUMPS VIRUS ANTIBODY (IGG) <9.00(L) AU/mL 10/10/2024 7:31 PM EDT [facility] RUBELLA IMMUNE STATUS <0.90(L) Index 10/10/2024 7:31 PM EDT [facility] Blood Blood / Unknown 10/08/2024 9 :08 AM EDT 10/09/2024 2:03 AM EDT Narrative [facility] - 10/10/2024 7:39 PM EDT FASTING:YES AU/mL Interpretation ----- <13.50 Not consistent with immunity 13.50-16.49 Equivocal >16.49 Consistent with immunity . The presence of measles IgG suggests immunization or past or current infection with measles virus. . For additional information, please refer to http://education.[employer].com/faq/LFH356 (This link is being provided for informational/ [...] past or current infection with rubella virus. [employer] LAB - BLOOD DRAW Final Result Performing Organization Address [facility] de Phone Number [employer] [address] [place] [address], [facility] [address] [address] * (ABNORMAL) HEMOGLOBIN GLYCOSYLATED A1C Routine (10/08/2024 9:08 AM EDT) HEMOGLOBIN A1C 5.7(H) <5.7 % 10/09/2024 3:37 AM EDT [facility] 10/08/2024 9:08 AM EDT 10/09/2024 2:18 AM EDT Narrative [employer] - 10/09/2024 3:37 AM EDT FASTING:YES For [...] for diagnosis of diabetes for children. . [employer] OPERATOR LAB - BLOOD DRAW Final Result Performing Organization Address [facility] Co de Phone Number [employer] [address] [address], [facility] [address] [address] * (ABNORMAL) LIPID PANEL Routine (10/08/2024 9:08 AM EDT) CHOLESTEROL, TOTAL 185 <200 mg/dL 10/09/2024 4:40 AM EDT [facility] HDL CHOLESTEROL 54 > OR = 50 mg/dL 10/09/2024 4:40 AM EDT [facility] TRIGLYCERIDES 130 <150 mg/dL 10/09/2024 4:40 AM EDT [facility] LDL-CHOLESTEROL 106(H) mg/dL (calc) 10/09/2024 4:40 AM EDT [facility] CHOL/HDLC RATIO 3.4 <5.0 (calc) 10/09/2024 4:40 AM EDT [facility] NON-HDL CHOLESTEROL 131(H) <130 mg/dL (calc) 10/09/2024 4:40 AM EDT [facility] Blood Blood / Unknown 10/08/2024 9 :08 AM EDT 10/09/2024 2:03 AM EDT Narrative [facility] - 10/09/2024 4:58 AM EDT FASTING:YES Reference range: <100 . Desirable range <100 mg/dL for primary prevention; <70 mg/dL for patients with CHD or diabetic patients with > or = 2 CHD risk factors. . LDL-C is now calculated using the Juan-Vesta calculation, which is a validated novel method providing better accuracy than the Friedewald equation in the estimation of LDL-C. Juan HARPER et al. EMMIE. 2013;310(19): 9857-0428 (http://education.[employer].com/faq/VLQ648) For patients with diabetes plus 1 major ASCVD risk factor, treating to a non-HDL-C goal of <100 mg/dL (LDL-C of <70 mg/dL) is considered a therapeutic option. Reyes Tony NP LAB - BLOOD DRAW Final Result [facility] [address] [address], [place] [facility] [address] [address] * HEALTH HISTORY SCANNED DOCUMENT (10/03/2024 3:00 AM EDT) 10/03/2024 3:00 AM EDT Chky Provider Default SCAN OTHER ORDERS Final Re sult * REFERRAL TO ENDOCRINOLOGY (09/30/2024 3:00 AM EDT) 09/30/2024 3:00 AM EDT Feliz Gomez STONE DRESSER REFERRAL Final Res ult * COLORECTAL CANCER SCREENING STOOL DNA Stool Stool Routine (09/05/2024 8:40 AM EDT) Stool Stool specimen / Unknown Provider [facility] BODY FLUIDS AND STOOLS AMBUL ATORY Final Result * SYPHILIS ANTIBODY CASCADING REFLEX (05/27/2024 12:15 PM EDT) T. PALLIDUM AB, EIA NEGATIVE NEGATIVE [facility] Comment: No antibodies to T. pallidum (the agent causing syphilis) were detected in the specimen. This result, however, does not exclude very recent T. pallidum infection; testing of a second specimen, collected 2-4 weeks after this specimen, is recommended if the index of suspicion for recent infection is high. Blood Blood / Unknown 05/27/2024 1 2:15 PM EDT 05/27/2024 12:16 PM EDT Narrative [facility] - 05/31/2024 6:12 PM EDT FASTING:NO Teodora Lubin PA-C LAB - BLOOD DRAW Edited Resu lt - Final [facility] [address] [address], [facility] [address] [address] * PAP SMEAR W/HPV (01/17/2022) PAP SMEAR INTERPRETATION NORMAL NORMAL [facility] HPV (HUMAN PAPILLOMA) NEGATIVE NEGATIVE [facility] HPV TYPE 16 NEGATIVE NEGATIVE [facility] HPV TYPE 18 NEGATIVE NEGATIVE [facility] Swab 01/17/2022 Impressions [facility] - 01/17/2022 5:33 PM EST Result type: Cytology Reports ASSEMBLER TESTER PAP Test Result date: January 17, 2022 22:04 EST Result status: Auth (Verified) Result title: Cytology Reports ASSEMBLER TESTER PAP Test Encounter info: [id number], [facility] OutPatient, 01/17/2022 - 01/17/2022 Contributor system: [employer] * Final Report * Cytology Reports ASSEMBLER TESTER PAP Test Patient Name: RUTH MCKEON Patient : 1970 (Age: 51) Lab Collection Date: 01/17/2022 Accession Date: 01/17/2022 Sign Out Date: 01/22/2022 Tissue Source: 1: THINPREP ASSEMBLER TESTER PAP TEST, CERVICAL: Final Diagnosis: NEGATIVE FOR INTRAEPITHELIAL LESION OR MALIGNANCY. Satisfactory for evaluation. Endocervical/transformation zone present. Procedures/Addenda: Human Papilloma Virus, High-Risk (Any Dx) Status: Signed Out Interpretation: Negative Methodology: [employer] Aptima HPV mRNA assay (Nucleic Acid Amplification Test, NAAT). Clinical History: Date of Last Menstrual Period: not available Menstrual History: not available Contraceptive History: not available Ancillary Testing: HPV (any dx) Case imaged by the [employer] Imaging System with manual rescreening or review. Performed at [facility] Reference Laboratory department of Cytology, Dilia Mayorga [facility] Clinical History (other): ANNUAL, ROUTINE SCREEN, V76.2 Phone #: [phone], On-Call Pathologist: [id number] us Provider Ollie LAB - PATHOLOGY AND CYTOLOGY AMB ULATORY Final Result [facility] [address] [place] [address], [place] from Last 3 Months or Most Recently Relevant to Health Maintenance Insurance [employer] ([employer]) Care Teams Needle Loom Weaver Relationship Specialty Start Date End Date Jet Gomez PA [address] [place] [phone] PCP - General Internal Medicine 06/05/18
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
--- OUTSIDE RECORDS SUMMARY | 2024-12-09 10:13 | XMS_ITS | Clinical Summary ---
Author Organization [facility] Address [address] [place] [address] Phone Care Team Providers Care Cook Fish Eggs Name Role Phone Jet Gomez Primary Care Provider [phone] Allergies No known active allergies Medications diclofenac-caps [...] [facility] [address] [address] [place] [address] eDnia Ritter MD 11/16/2024 9:00 AM EDT Office Visit Endocrinology [address] [phone] Denia Ritter MD Post-surgical hypothyroidism (Primary Dx); Hyperparathyroidism (CMS/HCC V24) 09/23/2024 Telephone [facility] [address] [address] [place] [address] Denia Ritter MD 09/21/2024 10:05 AM EDT Lab Draw Station - [address] Thyroid cancer ([facility] V24, [facility] V28) 09/21/2024 9:00 AM EDT Consult Endocrinology - [address] [phone] Denia Ritter MD Thyroid cancer ([facility] V24, [facility] V28) (Primary Dx) from Last 3 Months [...] Description 03/22/2025 9:20 AM EST Office Visit [facility] - [address] [phone] Denia Ritter MD [address] [place] [address] Health Maintenance Due Date Last Done Comments [...] INTACT Routine 11/16/2024 9:41 AM EDT Hyperparathyroidism ([facility] V24) VITAMIN D 25 HYDROXY Routine 11/16/2024 [...] Routine 09/21/2024 10:08 AM EDT Thyroid cancer ([facility]/HCC V24, CMS/HCC V28) THYROID STIMULATING HORMONE [...] AM EDT) WBC 7.5 4.8 - 10.8 K/[facility] LAB HEMETOLOGY METHOD 11/16/2024 1:06 PM EDT [facility] RBC 4.60 3.80 - 4.80 M/mcL LAB HEMETOLOGY METHOD 11/16/2024 1:06 PM [facility] Hemoglobin 14.4 11.5 - 16.0 g/dL LAB HEMETOLOGY METHOD 11/16/2024 1:06 PM [facility] Hematocrit 44.3 35.0 - 47.0 % LAB HEMETOLOGY METHOD 11/16/2024 1:06 PM [facility] MCV 96.7 79.0 - 98.0 FL LAB HEMETOLOGY METHOD 11/16/2024 1:06 PM [facility] MCH 31.4 27.0 - 32.0 pcg LAB HEMETOLOGY METHOD 11/16/2024 1:06 PM [facility] MCHC 32.5 32.0 - 37.0 g/dL LAB HEMETOLOGY METHOD 11/16/2024 1:06 PM [facility] RDW 13.5 11.0 - 15.0 % LAB HEMETOLOGY METHOD 11/16/2024 1:06 PM [facility] Platelets 212 130 - 400 K/mcL LAB HEMETOLOGY METHOD 11/16/2024 1:06 PM [facility] MPV 10.3 7.0 - 11.0 FL LAB HEMETOLOGY METHOD 11/16/2024 1:06 PM [facility] NRBC 0.0 <1.0 % LAB HEMETOLOGY METHOD 11/16/2024 1:06 PM [facility] NRBC Absolute 0.00 <0.10 K/mcL LAB HEMETOLOGY METHOD 11/16/2024 1:06 PM [facility] Neutrophils Relative 63.6 % LAB HEMETOLOGY METHOD 11/16/2024 1:06 PM [facility] Lymphocytes Relative 23.8 % LAB HEMETOLOGY METHOD 11/16/2024 1:06 PM EDT [facility] Monocytes Relative 9.7 % LAB HEMETOLOGY METHOD 11/16/2024 1:06 PM EDT [facility] Eosinophils Relative 1.7 % LAB HEMETOLOGY METHOD 11/16/2024 1:06 PM EDT [facility] Basophils Relative 0.9 % LAB HEMETOLOGY METHOD 11/16/2024 1:06 PM EDT [facility] Immature Granulocytes Relative 0.3 % LAB HEMETOLOGY METHOD 11/16/2024 1:06 PM EDT [facility] Neutrophils Absolute 4.76 1.50 - 7.00 K/mcL LAB HEMETOLOGY METHOD 11/16/2024 1:06 PM T [facility] Lymphocytes Absolute 1.78 1.00 - 5.00 K/mcL LAB HEMETOLOGY METHOD 11/16/2024 1:06 PM EDT [facility] Monocytes Absolute 0.73 0.20 - 1.00 K/mcL LAB HEMETOLOGY METHOD 11/16/2024 1:06 PM EDT [facility] Eosinophils Absolute 0.13 0.00 - 0.50 K/mcL LAB HEMETOLOGY METHOD 11/16/2024 1:06 PM [facility] Basophils Absolute 0.07 0.00 - 0.20 K/mcL LAB HEMETOLOGY [facility]24 [facility] Immature Granulocytes Absolute 0.02 0.00 - 0.03 K/mcL LAB HEMETOLOGY METHOD 11/16/2024 1:06 PM [facility] Blood Venous blood specimen / Unknown Venipuncture / Unknown 11/16/2024 9:41 AM EDT 11/16/2024 9:41 AM EDT us Netta RITTER LAB BLOOD ORDERABLES Final Resul t [facility] [address] [place] [address], [place] [phone] * Iron and TIBC (11/16/2024 9:41 AM EDT) [facility] Iron 78 40 - 150 mcg/dL LAB CHEMISTRY METHOD 11/16/2024 1:46 PM EDT [facility] TIBC 388 250 - 450 mcg/dL LAB CHEMISTRY METHOD 11/16/2024 1:46 PM EDT [facility] Iron Saturation 20 15 - 50 % LAB CHEMISTRY METHOD 11/16/2024 1:46 PM EDT [facility] Blood Venous blood specimen / Unknown Venipuncture / Unknown 11/16/2024 9:41 AM EDT 11/16/2024 9:41 AM EDT us Netta RITTER LAB BLOOD ORDERABLES Final Resul t Performing Organization Address [facility]/ZIP Co de Phone Number [facility] [address] [place] [address], [place] [phone] * Vitamin D 25 hydroxy (11/16/2024 9:41 AM EDT) [facility] Vit D, 25-Hydroxy 32.8 30.0 - 80.0 ng/mL LAB CHEMISTRY METHOD 11/16/2024 3:13 PM EDT [facility] Blood Venous blood specimen / Unknown Venipuncture / Unknown 11/16/2024 9:41 AM EDT 11/16/2024 9:41 AM EDT us Netta RITTER LAB BLOOD ORDERABLES Final Resul t Performing Organization Address City/[facility]/ZIP Co de Phone Number [facility] [address] [place] [address], [place] [phone] * Thyroid stimulating hormone (11/16/2024 9:41 AM EDT) Only the most recent of2 resultswithin the time period is included. TSH 0.52 0.40 - 4.00 mcIU/mL LAB CHEMISTRY METHOD 11/16/2024 3:13 PM EDT [facility] Blood Venous blood specimen / Unknown Venipuncture / Unknown 11/16/2024 9:41 AM EDT 11/16/2024 9:41 AM EDT Denia Ritter MD LAB BLOOD ORDERABLES Final Res ult Performing Organization Address City/[facility]/ZIP Co de Phone Number [facility] [address] [place] [address], * Thyroxine free (11/16/2024 9:41 AM EDT) Only the most recent of2 resultswithin the time period is included. Free T4 1.64 0.70 - 1.80 ng/dL LAB CHEMISTRY METHOD 11/16/2024 3:13 PM EDT [facility] Blood Venous blood specimen / Unknown Venipuncture / Unknown 11/16/2024 9:41 AM EDT 11/16/2024 9:41 AM EDT Netta RITTER LAB BLOOD ORDERABLES Final Resul t Performing Organization Address City/[facility]/ZIP Co de Phone Number [facility] [address] [place] [address], [place] [phone] * (ABNORMAL) Parathyroid hormone intact (11/16/2024 9:41 AM EDT) PTH 111.1(H) 18.5 - 88.0 pcg/mL LAB CHEMISTRY METHOD 11/16/2024 3:44 PM EDT [facility] Blood Venous blood specimen / Unknown Venipuncture / Unknown 11/16/2024 9:41 AM EDT 11/16/2024 9:41 AM EDT Denia Ritter MD LAB BLOOD ORDERABLES Final Res ult Performing Organization Address City/[facility]/ZIP Co de Phone Number [facility] [address] [place] [address], [place] [phone] * Ferritin (11/16/2024 9:41 AM EDT) Ferritin 158 8 - 252 ng/mL LAB CHEMISTRY METHOD 11/16/2024 1:45 PM EDT [facility] Blood Venous blood specimen / Unknown Venipuncture / Unknown 11/16/2024 9:41 AM EDT 11/16/2024 9:41 AM EDT Netta RITTER LAB BLOOD ORDERABLES Final Resul t Performing Organization Address [facility]/ZIP Co de Phone Number [facility] [address] [place] [address], [place] [phone] * Comprehensive metabolic panel (11/16/2024 9:41 AM EDT) Pathologist [facility] Sodium 141 133 - 145 mmol/L LAB CHEMISTRY METHOD 11/16/2024 1:46 PM [facility] Potassium 4.6 3.5 - 5.5 mmol/L LAB CHEMISTRY METHOD 11/16/2024 1:46 PM [facility] Chloride 108 96 - 110 mmol/L LAB CHEMISTRY METHOD 11/16/2024 1:46 PM [facility] CO2 28 21 - 32 mmol/L LAB CHEMISTRY METHOD 11/16/2024 1:46 PM [facility] Anion Gap 5 3 - 11 LAB CHEMISTRY METHOD 11/16/2024 1:46 PM [facility] Glucose 89 70 - 100 mg/dL LAB CHEMISTRY METHOD 11/16/2024 1:46 PM [facility] BUN 10 5 - 25 mg/dL LAB CHEMISTRY METHOD 11/16/2024 1:46 PM [facility] Creatinine 0.57 0.50 - 1.10 mg/dL LAB CHEMISTRY METHOD 11/16/2024 1:46 PM [facility] eGFR 107 >=60 mL/min/1. 73m2 LAB CHEMISTRY METHOD 11/16/2024 1:46 PM [facility] Comment:Calculation based on the Chronic Kidney Disease Epidemiology Collaboration (CKD-EPI) equation refit without adjustment for race. BUN/Creatinine Ratio 17.5 LAB CHEMISTRY METHOD 11/16/2024 1:46 PM [facility] Calcium 8.8 8.5 - 10.5 mg/dL LAB CHEMISTRY METHOD 11/16/2024 1:46 PM [facility] AST (SGOT) 23 10 - 42 unit/L LAB CHEMISTRY METHOD 11/16/2024 1:46 PM [facility] ALT (SGPT) 28 10 - 60 unit/L LAB CHEMISTRY METHOD 11/16/2024 1:46 PM [facility] Alkaline Phosphatase 74 42 - 121 unit/L LAB CHEMISTRY METHOD 11/16/2024 1:46 PM [facility] Total Protein 7.4 6.0 - 8.0 g/dL LAB CHEMISTRY METHOD 11/16/2024 1:46 PM [facility] Albumin 3.4 3.2 - 5.0 g/dL LAB CHEMISTRY METHOD 11/16/2024 1:46 PM [facility] Total Bilirubin 0.6 0.0 - 1.4 mg/dL LAB CHEMISTRY METHOD 11/16/2024 1:46 PM [facility] Blood Venous blood specimen / Unknown Venipuncture / Unknown 11/16/2024 9:41 AM EDT 11/16/2024 9:41 AM EDT us Netta RITTER LAB BLOOD ORDERABLES Final Resul t Performing Organization Address City/State/[facility] Co de Phone Number [facility] [address] [place] [address], * Thyroglobulin and thyroglobulin antibody panel (09/21/2024 10:08 AM EDT) Thyroglobulin Antibody <2 <4 IU/mL 09/23/2024 11:11 PM EDT [facility] Thyroglobulin 44.4 SeeBelow ng/mL 09/23/2024 11:11 PM EDT [facility] Comment: Thyroglobulin Reference Range: Intact thyroid: 1.6-50.0 ng/mL Athyrotic, post-thyroidectomy (tumor marker): <0.1 ng/mL Thyroglobulin antibodies can interfere with the determination of thyroglobulin. If the specimen contains thyroglobulin antibodies, please interpret the thyroglobulin result with caution. The [employer] DXI chemiluminescent immunoassay is used. Results obtained with different assay methods or kits cannot be used interchangeably. Results cannot be interpreted as absolute evidence of the presence or absence of malignant disease. Test performed at [facility], [address] [place] [address] Ayde Platt MD, PhD - Show Design Supervisor Blood Venous blood specimen / Unknown Venipuncture / Unknown 09/21/2024 10:08 AM EDT 09/21/2024 10:08 AM EDT Denia Ritter MD LAB BLOOD ORDERABLES Final Res ult [facility] [address] 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
--- OUTSIDE RECORDS SUMMARY | 2024-12-09 10:13 | XMS_ITS | Encounter Summary ---
Author Organization [facility] Address [address] [place] [address] Care Team Providers Care Chemical Weigher Name Role Phone Jet Gomez Primary Care Provider [phone] Encounter Details Date Type Department Care Team (Late Contact Info) Description 11/17/2024 Results [facility] [address] [phone] Denia Ritter MD [address] [place] [address] Social History Tobacco Use Types Packs/Day Years [...] 9:20 AM EST Office Visit Endocrinology - [address] [phone] Denia Ritter MD [address] [place] [phone] documented as of this encounter Visit Diagnoses Not on filedocumented in this encounter Care Teams Chemical Weigher Relationship Specialty Start Date End Date Jet Gomez PA [address] [place] [address] PCP - General Internal Medicine 06/26/21 documented as of this encounter
--- OUTSIDE RECORDS SUMMARY | 2024-12-09 10:13 | XMS_ITS | Data Portability ---
Author Organization RIYA Newell [facility]eng [address] Address [address] [place] [address] Assessment No assessment recorded. Plan of Treatment Reminders Order Date Submit Date Provider Last Modified By Organization Details Last Modified Time Details Appointments None recorded. Lab None recorded. Referral orthopedic surgeon referral - pain left thumb and hand . not getting better failing conservativ e treatment. need further evaluation. x-ray left hand shows foreign body left hand 2023 024 [email or web address] 48 [facility], [address], [place], [address], 19:37:24 Procedures None recorded. Surgeries None recorded. Imaging XR, hand, 3 or more view 2023 024 [email or web address] [address] [facility], [address] [place], [address], 4 19:37:24 XR, shoulder, 2 or more view 2023 024 [email or web address] 48 [facility], [address] [place], [address], 4 19:37:24 Medication Orders None recorded. Patient TargetsNo targets recorded. Patient Instructions Encounter Date Encounter Id Patient Instructions Last Modified By Organization Details Last Modified Time 09/29/2023 [id number] shoulder pain: care instructions [email or web address] Not available [...] ed. [email or web address] [facility] [address] [place], [address], 09/30/2023 12:26:53 09/29/19 24 09/29/2023 XR, shoul blake, 2 or more view No observ ation record ed. [email or web address] [facility] [address] [place], [address], 09/30/2023 12:26:54 Result Notes None recorded. Problems Name Problem SNOMED Code Status Onset Date Resolution Date Notes Provider Name and Address Organization Details Recorded Time Pain of right shoulder joint [id number] 00 Active 2023 Charles Mcdermott NP [address] , [place], [address], [place] - [facility] 4 18:13:52 Pain of left hand 986836980395410 Active 2023 Charles Mcdermott NP [address] , [place], [address], [place] - [facility] 4 [...] Arterial blood by Pulse oximetry Heart rate Pain severity - 0-10 verbal numeric rating [Score] - Reported Body temperature Respiratory rate Systolic And Diastolic Provider Name and Address Organization Details Last Updated DateTime 4 154.94 cm 37.8 kg/m2 99938.4 7 g 95 % 95 % 84 /min 5 98.2 [degF] 16 /min 121/79 mm[Hg] Ismael RITTER - [facility] 4 17:59:48 Social History Question Answer Notes LastModified by Organizat ion Details LastModified Time Tobacco Smoking Status Never Smoker Ismael enrique PA Sue [facility] 09/29/2023 17:55:00 Have You Had A [...] ICD10 Code Diagnosis IMO Codes Diagnosis Note [id number] [address] [place] [address] 07/05/2015 16:40:28 07/05/2015 18:31:06 [id number] Charles Mcdermott NP [address] [facility] [address] 09/29/2023 17:31:06 09/29/2023 19:37:24 Pain of right shoulder joint [id number] M25.511 You can hurt your shoulder by [...] lift anything heavy. Pain of left hand [id number] M79.642 A hand can break (fracture) during [...] Kendall Member ID Guarantor Name 09/29/2023 2 [facility] (MEDICAID REPLACEMENT - O) [id number] Sera Acosta [id number] Sera Acosta 09/29/2023 1 [employer] [facility] INDEMNITY PLAN (INDEMNITY) [id number] Irwin Acosta [id number] Sera Acosta Notes Date Note Type Note Provider Name and Address Organization Details Recorded Time 4 text/html Shoulder UCReported by PatientHPIFor associated symptoms, patient reportspopping/clickingbut reportsno weakness,no numbness,no tingling,no swelling,no redness,no warmth,no ecchymosis,no catching/locking,no buckling,no grinding,no instability,no radiation down arm,no drainage,no fever,no chills,no weight loss, andno change in bowel/bladder habits. For source of patient information, patient reportsinformation obtained from patientandpatient arrived at urgent care ambulatory. For hand dominance, patient reportsright. For location, patient reportsrightandanterior. For quality, patient reportsaching,sharp,frequen t, andworsening. For severity, patient reportsmoderateandpain level 4/10. For duration, patient reports___ daysand2 months. For timing, patient reportsacute. For context, patient reportsliftingandtwisting. For alleviating factors, patient reportsrest. For aggravating factors, patient reportslifting,twisting,pus kosta/pulling, androm. For previous injury, patient reportsno prior injury to affected body part. For previous treatment, patient reportsnone. For prior imaging, patient reportsnone. Charles Mcdermott NP [address] [place], [address], [place] - [facility] 10/01/2023 08:13:10 OBGyn Episode No OBEpisode recorded.
== END 2024-12-09 09:23 | disposition home or self-care (01) ==
LOC: HO.XRAY 09:22
PROVIDERS: PCP Physician Assistant; Visit Provider Nurse Practitioner Family
DX: K44.9 Diaphragmatic hernia without obstruction or gangrene (principal)
CPT/HCPCS: 74220

== ENCOUNTER → 2024-12-09 09:24 | Outpatient (BNV) | payer OTHER, SELFPAY | PROVIDERS: PCP Physician Assistant; Visit Provider Radiology Diagnostic Radiology | DX: K44.9 Diaphragmatic hernia without obstruction or gangrene (principal) | CPT/HCPCS: 74221 ==

== ENCOUNTER 2025-01-06 09:24 | Day surgery (SDC) | payer OTHER, SELFPAY ==
--- OUTSIDE RECORDS SUMMARY | 2024-11-30 10:00 | XMS_ITS | Encounter Summary ---
Author Organization [facility] Address [address] [place] [address] Care Team Providers Care Parking Enforcement Technician Name Role Phone Jet Gomez Primary Care Provider [phone] Reason for Visit * Reason Comments Abdominal Pain Encounter Details Date Type Department Care Team (Late st Contact Info) Description 11/30/2024 10:00 AM EDT Office Visit [address] [id number] Feliz Gomez FNP [address] [place] [id number] Social History Tobacco Use Types Packs/Day Years [...] PM PDT documented as of this encounter Last Filed Vital Signs Vital Sign Reading Time Taken Comments Blood Pressure 148/93 11/30/2024 9:27 AM EDT Pulse 104 11/30/2024 9:27 AM EDT Temperature 37.4 C (99.3 F) 11/30/2024 9:27 AM EDT Respiratory Rate 16 11/30/2024 9:27 AM EDT Oxygen Saturation 96% 11/30/2024 9:27 AM EDT Inhaled Oxygen Concentration - - Weight 93.5 kg (206 lb 1.6 oz) 11/30/2024 9:27 A M EDT Height - - Body Mass Index 38.94 10/07/2024 2:59 PM EDT documented in this encounter Progress Notes * Feliz Gomez, TASHI - 11/30/2024 10:11 AM EDT Subjective: CC: Abdominal Pain Instructional Systems Specialist: None, provider speaks patient's familiar language HPI: Sera Acosta is a 54 year old female patient who presents to the office today for evaluation ofcough, headache, back pain and neck pain abdominal pain and ear congestion. Symptoms have been present for two weeks. Has been using rest to treat symptoms without much relief. Admits to mucus with cough. Denies SOB. Never smoked before. Abdominal pain is on the flanks. Admits to soft stool x2 yesterday. HX controlled HIV No Known Allergies Patient Active Problem List Diagnosis ??? History of recurrent ear infection ??? Recurrent suppurative otitis media of left ear with spontaneous rupture of tympanic membrane ??? HIV infection ??? Elevated BP without diagnosis of hypertension ??? Chronic hepatitis C without hepatic coma ??? Hepatitis A ??? History of hemorrhoids ??? Prolapsed internal hemorrhoids with spontaneous retraction ??? Influenza vaccine administered ??? Abscess ??? Acute contact dermatitis ??? Cutaneous abscess of groin ??? Cutaneous abscess of abdominal wall ??? Non morbid obesity ??? Varicose veins of both lower extremities with inflammation ??? Abnormal cervical Papanicolaou smear ??? Abnormal uterine bleeding ??? Contact with and (suspected) exposure to covid-19 ??? Carpal tunnel syndrome of right wrist ??? Accessory skin tags ??? Benign mole ??? Right foot pain ??? Eczema ??? Varicose veins of bilateral lower extremities with pain ??? History of colon polyps ??? Hx of papillary thyroid carcinoma ??? Hiatal hernia ??? Prediabetes Current Outpatient Medications on File Prior to Visit Medication Sig Dispense Refill ??? famotidine (PEPCID) 20 mg tablet Take 1 Tablet by mouth daily. 90 Tablet 1 ??? naproxen (NAPROSYN) 500 mg tablet Take 1 Tablet by mouth 2 (two) times daily as needed for other reason (pain). 30 Tablet 1 ??? azelastine (ASTELIN) 137 mcg (0.1 %) nasal spray Place 1 [place] into the nostril(s) 2 (two) times daily. 30 mL 1 ??? clotrimazole (LOTRIMIN) 1 % cream Apply topically 2 (two) times daily To abdominal folds. 45 g 0 ??? clotrimazole 1 % vaginal cream Place 1 Applicatorful vaginally nightly at bedtime. 45 g 0 ??? cyclobenzaprine (FLEXERIL) 10 mg tablet Take 1 Tablet by mouth 3 (three) times daily as needed for muscle spasms. 30 Tablet 1 ??? diclofenac sodium (VOLTAREN) 1 % gel Apply 2 g topically 2 (two) times daily. 100 g 2 ??? fexofenadine (KENZIE) 180 mg tablet Take 1 Tablet by mouth once daily. 90 Tablet 0 ??? BIKTARVY 50-200-25 mg tab TAKE 1 TABLET BY MOUTH EVERY DAY 30 Tablet 11 No current facility-administered medications on file prior to visit. Objective: Vitals: 11/30/24 0927 BP: (!) 148/93 Pulse: (!) 104 Resp: 16 Temp: 99.3 ??F (37.4 ??C) TempSrc: Oral SpO2: 96% Weight: 206 lb 1.6 oz (93.5 kg) Body mass index is 38.94 kg/m??. Physical Exam Constitutional: Appearance: Normal appearance. Cardiovascular: Rate and Rhythm: Normal rate and regular rhythm. Pulmonary: Effort: Pulmonary effort is normal. Comments: Right egophony Abdominal: General: Abdomen is flat. Bowel sounds are normal. There is no distension. Palpations: Abdomen is soft. Tenderness: There is no abdominal tenderness. Musculoskeletal: General: Normal range of motion. Lymphadenopathy: Cervical: No cervical adenopathy. Neurological: General: No focal deficit present. Mental Status: She is alert and oriented to person, place, and time. Psychiatric: Mood and Affect: Mood normal. Lifestyle measures:BMI follow up plan: The patient was counseled regarding nutrition and physical activity. Depression screen: PHQ-9 Total Score (Auto Calculated) 4 at 12/23/2023 2:08 PM 10/07/2024 2:59 PM How many times in the past year have you had 4 or more drinks in a day? NONE How many times in the past year have you used a recreational drug or used a prescription medicationfor nonmedical reasons? NONE Did patient decline PHQ screening? No Little interest or pleasure in doing things Not at all Feeling down, depressed or hopeless [include irritable if under 18] Not at all PHQ2 Score 0 Little interest or pleasure in doing things Not at all Feeling down, depressed or hopeless [include irritable if under 18] Not at all Trouble falling or staying asleep, or sleeping too much Not at all Poor appetite or overeating? Not at all Feeling bad about yourself - or that you are a failure or have let yourself or your family down Notat all Trouble concentrating on things, such as reading the newspaper or watching television? Not at all Moving or speaking so slowly that other people could have noticed? Or the opposite - being so fidgety or restless that you have been moving around a lot more than usual Not at all Thoughts you would be better off or of hurting yourself in some way Not at all If you checked off any problems, how difficult have these problems made it for you to do your work,take care of things at home, or get along with other people? Not difficult at all The 10-year ASCVD risk score (Olivia DK, et al., 2019) is: 2.7% Assessment and Plan: Sera Acosta is a 54 year old female patient who was seen today for evaluation of Abdominal Pain R07.81 Pleural pain (primary encounter diagnosis) Plan : ??? RADIOLOGIC EXAM CHEST 2 VIEWS ??? AMOXICILLIN 875 MG-POTASSIUM CLAVULANATE 125 MG TABLET - Take 1 Tablet by mouth 2 (two) times daily for 5 days. ??? AZITHROMYCIN 250 MG TABLET - Take 2 tabs day 1 then 1 tab daily for 4 days thereafter. Z85.850 Hx of papillary thyroid carcinoma Patient at risk for pneumonia for hx HIV-will treat empirically due to tachycardia and physical exam findings; CXR also ordered Pt had thyroidectomy for hx of thyroid cancer, doing well I am having Sera Acosta start on amoxicillin-pot clavulanate and azithromycin. I am also having her maintain her Biktarvy, cyclobenzaprine, diclofenac sodium, clotrimazole, clotrimazole, azelastine, fexofenadine, naproxen, and famotidine. Assessment and plan discussed with patient. Patient agrees with plan. Questions answered. documented in this encounter Miscellaneous Notes * Patient Instructions - TASHI Guajardo - 11/30/2024 10:22 AM EDT If you are not able to keep your appointment please call 24-48 hours before your appointment to cancel or reschedule. documented in this encounter Plan of Treatment Upcoming Encounters Date Type Department Care Team (Late st Contact Info) Description 12/19/2024 2:20 PM EST Office Visit [facility] [address] [place] [address] Scheduled Orders Name Type Priority Associated Diagnoses Orde r Schedule RADIOLOGIC EXAM CHEST 2 VIEWS Imaging Routine Pleural pain Ordered: 11/30/2024 documented as of this encounter Visit Diagnoses Diagnosis Pleural pain- Primary Painful respiration Hx of papillary thyroid carcinoma Personal history of malignant neoplasm of thyroid documented in this encounter Additional Health Concerns Assessment Noted Time PHQ-9 Depression Total Score: 4 12/23/19 24 2:08 PM PST A Depression follow-up plan has been documented for the patient 10/07/2024 7:19 PM PDT documented as of this encounter Care Teams Parking Enforcement Technician Relationship Specialty Start Date End Date Jet Gomez PA [address] [place] [address] PCP - General Internal Medicine 06/05/18 documented as of this encounter
--- OUTSIDE RECORDS SUMMARY | 2024-12-01 12:55 | XMS_ITS | Clinical Summary ---
Author Organization [facility] Address [address] [place] [address] Phone Care Team Providers Care Can Capper Name Role Phone Jet Gomez Primary Care Provider [phone] Allergies No known active allergies Medications diclofenac-caps aicin 2-0.025 % combo pack Apply 1 g 3 times a day by topical route as needed for 30 days. Active hydrocortisone (ANUSOL-HC) 2.5 % rectal cream APPLY RECTALLY 2 TIMES DAILY. Active ibuprofen (ADVIL,MOTRIN) 600 mg tablet TAKE 1 TABLET BY MOUTH 4 TIMES A DAY FOR 7 DAYS Active acetaminophen (TYLENOL 8 HOUR) 650 mg 8 hr tablet PLEASE SEE ATTACHED FOR DETAILED DIRECTIONS Active Biktarvy 50-200-25 mg per tablet Take 1 tablet by mouth 1 (one) time each day. Active levothyroxine (SYNTHROID, LEVOTHROID) 137 mcg tablet Take 1 tablet (137 mcg total) by mouth 1 (one) time each day. 30 each 4 5 11/17/19 26 Active Active Problems No known active problems Encounters Date Type Department Care Team Description 11/17/2024 Results [facility] [address] [address] [place] [address] Denia Ritter MD 11/16/2024 9:00 AM EDT Office Visit Endocrinology [address] [phone] Denia Ritter MD Post-surgical hypothyroidism (Primary Dx); Hyperparathyroidism (CMS/HCC V24) 09/23/2024 Telephone [facility] [address] [place] [address] Denia Ritter MD 09/21/2024 10:05 AM EDT Lab Draw Station - [address] Thyroid [place] ([facility] [place] [facility] [place]28[place] 09/21/2024 9:00 AM EDT Consult Endocrinology - [address] [phone] Denia Ritter MD Thyroid cancer ([facility] [place]24, [facility] V28) (Primary Dx) from Last 3 Months Immunizations Immunization Administration Dates Next Due Influenza trivalent, 0.5mL, preservative free (Fluarix; FluLaval; Fluzone) ages 6mo and older (Afluria) 3 years and older 01/06/2011,11/10/2007,12/02/2006 MMR, measles mumps and rubel la Live (Priorix; M-M-R II) 12mo and older 05/11/2009,05/10/2008 PPD Test 05/10/2008 Pneumococcal polysaccharide 23 valent (Pneumovax 23) 2yo and older 12/02/2006 Tdap Tetanus diptheria acell ular pertussis (Boostrix; Adacel) 7yo and older 12/03/2006 Surgical History Surgery Date Site/Laterality Comments ECTOPIC SURGERY PROCEDURE: HISTORICAL ECTOPIC SURGERY HERNIA REPAIR PROCEDURE: HISTORICAL HERNIA REPAIR/ING Medical History Medical History Date Comments External hemorrhoids without mention of complication 12/03/2006 DX:External hemorrhoids with out mention of complication Obesity, unspecified 12/03/2006 DX:Obesity, unspecified Carpal tunnel syndrome 12/03/2006 DX:Carpal tunnel syndrome Unspecified venous (peripher al) insufficiency 12/03/2006 DX:Unspecified venous (perip heral) insufficiency Amblyopia, unspecified DX:Amblyo abundio, unspecified; COMMENT: left Family History Medical History Relation Name Comments Blindness Neg Hx Breast cancer Neg Hx Cataracts Neg Hx Colon cancer Neg Hx Glaucoma Neg Hx Macular degeneration Neg Hx Ovarian cancer Neg Hx Strabismus Neg Hx Relation Name Status Comments Daughter 1 Alive Daughter 2 Alive Mother Alive kidney problems Sister Alive Son 1 Alive Son 2 Alive Social History Tobacco Use Types Packs/Day Years [...] Orientation Straight 03/09/2024 12 :40 PM EST Obstetrics History Last Filed Vital Signs Vital Sign Reading Time Taken Comments Blood Pressure 123/82 11/16/2024 8:39 AM EDT Pulse 63 11/16/2024 8:39 AM EDT Temperature 36.6 C (97.8 F) 11/16/2024 8:39 AM EDT Respiratory Rate 20 01/30/2024 8:38 AM EST Oxygen Saturation 96% 01/30/2024 8:39 AM EST Inhaled Oxygen Concentration - - Weight 94.3 kg (207 lb 12.8 oz) 09/21/2024 8:43 AM EDT Height 154.9 cm (5' 1 ) 09/21/2024 8:43 AM EDT Body Mass Index 39.26 09/21/2024 8:43 AM EDT Plan of Treatment Upcoming Encounters Date Type Department Care Team (Late st Contact Info) Description 03/22/2025 9:20 AM EST Office Visit [facility] - [address] [phone] Denia Ritter MD [address] [place] [address] Health Maintenance Due Date Last Done Comments Breast Cancer Screening 1968 Colorectal Cancer Screening: Colonoscopy 1970 Hepatitis A Vaccines (1 of 2 - Risk 2-dose series) 09/25/1987 Cervical Cancer Screening: Pap Smear 06/01/2014 06/02/2011 RSV Immunization Adult Patients (1 - Risk 50-74 years 1-dose series) 2018 Social Influencers of Health Screening 01/19/2022 Depression Screening 02/17/2024 COVID-19 Vaccine ( season) 2024 12/30/2021, 03/22/2021, 08/16/2020, Additional history exists Influenza Vaccine (#1) 2024 , 12/30/2021, 12/19/2019, Additional history exists Meningococcal ACWY Vaccine (3 - Risk 2-dose series) 05/20/2026 05/20/2021, 09/27/2020 DTaP,Tdap,and Td Vaccines (3 - Td or Tdap) 09/01/2026 09/01/2016, 12/03/2006 Cholesterol Screening (Lipid Panel) 10/08/2029 10/08/2024, 10/08/2024, 01/24/2022, Additional history exists MMR Vaccines Aged Out 09/01/2016, 04/17, 05/10/2008 No longer eligible based on patient's age to complete this topic Zoster Vaccines Completed 11/27/2020, 09/27/2020 Hepatitis B Vaccines Completed 04/14/2022, 03/14/2022, 09/27/2020, Additional history exists Pneumococcal Vaccine: 50+ Years Completed 10/23/2023, 05/21/2018, 01/21/2012, Additional history exists Hepatitis C Screening Completed 05/27/2024 HIB Vaccines Aged Out No longer eligi ble based on patient's age to complete this topic HPV Vaccines Aged Out No longer eligi ble based on patient's age to complete this topic IPV Vaccines Aged Out No longer eligi ble based on patient's age to complete this topic Meningococcal B Vaccine Aged Out No l onger eligible based on patient's age to complete this topic RSV Immunization Patients Under 20 months Aged Out No longer eligible based on patient's age to complete this topic Varicella Vaccines Aged Out No longer eligible based on patient's age to complete this topic Procedures Procedure Name Priority Date/Time Associated Diagnosis Comments CBC WITH AUTO DIFFERENTIAL Routine 11/16/2024 9:41 AM EDT Telogen effluvium PARATHYROID HORMONE INTACT Routine 11/16/2024 9:41 AM EDT Hyperparathyroidism ([facility] V24) VITAMIN D 25 HYDROXY Routine 11/16/2024 9:41 AM EDT Telogen effluvium CBC AND DIFFERENTIAL Routine 11/16/2024 9:41 AM EDT Telogen effluvium COMPREHENSIVE METABOLIC PANEL Routine 11/16/2024 9:41 AM EDT Telogen effluvium FERRITIN Routine 11/16/2024 9:41 AM EDT Telogen effluvium THYROXINE FREE Routine 11/16/2024 9:41 AM EDT Telogen effluvium IRON AND TIBC Routine 11/16/2024 9:41 AM EDT Telogen effluvium THYROID STIMULATING HORMONE Routine 11/16/2024 9:41 AM EDT Post-surgical hypothyroidism THYROGLOBULIN AND THYROGLOBULIN ANTIBODY PANEL Routine 09/21/2024 10:08 AM EDT Thyroid cancer ([facility]/HCC V24, CMS/HCC V28) THYROID STIMULATING HORMONE Routine 09/21/2024 10:08 AM EDT Thyroid cancer (CMS/HCC V24, CMS/HCC V28) THYROXINE FREE Routine 09/21/2024 10:08 AM EDT Thyroid cancer (CMS/HCC V24, CMS/HCC V28) HM PAP SMEAR Routine 06/02/2011 LIPID PANEL Routine 01/10/2011 from Last 3 Months or Most Recently Relevant to Health Maintenance Results * CBC auto differential (11/16/2024 9:41 AM EDT) WBC 7.5 4.8 - 10.8 K/[facility] LAB HEMETOLOGY METHOD 11/16/2024 1:06 PM EDT [facility] RBC 4.60 3.80 - 4.80 M/mcL LAB HEMETOLOGY METHOD 11/16/2024 1:06 PM [facility] Hemoglobin 14.4 11.5 - 16.0 g/dL LAB HEMETOLOGY METHOD 11/16/2024 1:06 PM [facility] Hematocrit 44.3 35.0 - 47.0 % LAB HEMETOLOGY METHOD 11/16/2024 1:06 PM [facility] MCV 96.7 79.0 - 98.0 FL LAB HEMETOLOGY METHOD 11/16/2024 1:06 PM [facility] MCH 31.4 27.0 - 32.0 pcg LAB HEMETOLOGY METHOD 11/16/2024 1:06 PM [facility] MCHC 32.5 32.0 - 37.0 g/dL LAB HEMETOLOGY METHOD 11/16/2024 1:06 PM [facility] RDW 13.5 11.0 - 15.0 % LAB HEMETOLOGY METHOD 11/16/2024 1:06 PM [facility] Platelets 212 130 - 400 K/mcL LAB HEMETOLOGY METHOD 11/16/2024 1:06 PM [facility] MPV 10.3 7.0 - 11.0 FL LAB HEMETOLOGY METHOD 11/16/2024 1:06 PM [facility] NRBC 0.0 <1.0 % LAB HEMETOLOGY METHOD 11/16/2024 1:06 PM [facility] NRBC Absolute 0.00 <0.10 K/mcL LAB HEMETOLOGY METHOD 11/16/2024 1:06 PM [facility] Neutrophils Relative 63.6 % LAB HEMETOLOGY METHOD 11/16/2024 1:06 PM [facility] Lymphocytes Relative 23.8 % LAB HEMETOLOGY METHOD 11/16/2024 1:06 PM EDT [facility] Monocytes Relative 9.7 % LAB HEMETOLOGY METHOD 11/16/2024 1:06 PM EDT [facility] Eosinophils Relative 1.7 % LAB HEMETOLOGY METHOD 11/16/2024 1:06 PM EDT [facility] Basophils Relative 0.9 % LAB HEMETOLOGY METHOD 11/16/2024 1:06 PM EDT [facility] Immature Granulocytes Relative 0.3 % LAB HEMETOLOGY METHOD 11/16/2024 1:06 PM EDT [facility] Neutrophils Absolute 4.76 1.50 - 7.00 K/mcL LAB HEMETOLOGY METHOD 11/16/2024 1:06 PM T [facility] Lymphocytes Absolute 1.78 1.00 - 5.00 K/mcL LAB HEMETOLOGY METHOD 11/16/2024 1:06 PM EDT [facility] Monocytes Absolute 0.73 0.20 - 1.00 K/mcL LAB HEMETOLOGY METHOD 11/16/2024 1:06 PM EDT [facility] Eosinophils Absolute 0.13 0.00 - 0.50 K/mcL LAB HEMETOLOGY METHOD 11/16/2024 1:06 PM [facility] Basophils Absolute 0.07 0.00 - 0.20 K/mcL LAB [facility] Immature Granulocytes Absolute 0.02 0.00 - 0.03 K/mcL LAB HEMETOLOGY METHOD 11/16/2024 1:06 PM [facility] Blood Venous blood specimen / Unknown Venipuncture / Unknown 11/16/2024 9:41 AM EDT 11/16/2024 9:41 AM EDT us Netta RITTER LAB BLOOD ORDERABLES Final Resul t [facility] [address] [place] [address], [place] [phone] * Iron and TIBC (11/16/2024 9:41 AM EDT) [facility] Iron 78 40 - 150 mcg/dL LAB CHEMISTRY METHOD 11/16/2024 1:46 PM EDT [facility] TIBC 388 250 - 450 mcg/dL LAB CHEMISTRY METHOD 11/16/2024 1:46 PM EDT [facility] Iron Saturation 20 15 - 50 % LAB CHEMISTRY METHOD 11/16/2024 1:46 PM EDT [facility] Blood Venous blood specimen / Unknown Venipuncture / Unknown 11/16/2024 9:41 AM EDT 11/16/2024 9:41 AM EDT us Netta RITTER LAB BLOOD ORDERABLES Final Resul t Performing Organization Address [facility]/ZIP Co de Phone Number [facility] [address] [place] [address], [place] [phone] * Vitamin D 25 hydroxy (11/16/2024 9:41 AM EDT) [facility] Vit D, 25-Hydroxy 32.8 30.0 - 80.0 ng/mL LAB CHEMISTRY METHOD 11/16/2024 3:13 PM EDT [facility] Blood Venous blood specimen / Unknown Venipuncture / Unknown 11/16/2024 9:41 AM EDT 11/16/2024 9:41 AM EDT us Netta RITTER LAB BLOOD ORDERABLES Final Resul t Performing Organization Address City/[facility]/ZIP Co de Phone Number [facility] [address] [place] [address], [place] [phone] * Thyroid stimulating hormone (11/16/2024 9:41 AM EDT) Only the most recent of2 resultswithin the time period is included. TSH 0.52 0.40 - 4.00 mcIU/mL LAB CHEMISTRY METHOD 11/16/2024 3:13 PM EDT [facility] Blood Venous blood specimen / Unknown Venipuncture / Unknown 11/16/2024 9:41 AM EDT 11/16/2024 9:41 AM EDT Denia Ritter MD LAB BLOOD ORDERABLES Final Res ult Performing Organization Address City/[facility]/ZIP Co de Phone Number [facility] [address] [place] [address], * Thyroxine free (11/16/2024 9:41 AM EDT) Only the most recent of2 resultswithin the time period is included. Free T4 1.64 0.70 - 1.80 ng/dL LAB CHEMISTRY METHOD 11/16/2024 3:13 PM EDT [facility] Blood Venous blood specimen / Unknown Venipuncture / Unknown 11/16/2024 9:41 AM EDT 11/16/2024 9:41 AM EDT Netta RITTER LAB BLOOD ORDERABLES Final Resul t Performing Organization Address City/[facility]/ZIP Co de Phone Number [facility] [address] [place] [address], [place] [phone] * (ABNORMAL) Parathyroid hormone intact (11/16/2024 9:41 AM EDT) PTH 111.1(H) 18.5 - 88.0 pcg/mL LAB CHEMISTRY METHOD 11/16/2024 3:44 PM EDT [facility] Blood Venous blood specimen / Unknown Venipuncture / Unknown 11/16/2024 9:41 AM EDT 11/16/2024 9:41 AM EDT Denia Ritter MD LAB BLOOD ORDERABLES Final Res ult Performing Organization Address City/[facility]/ZIP Co de Phone Number [facility] [address] [place] [address], [place] [phone] * Ferritin (11/16/2024 9:41 AM EDT) Ferritin 158 8 - 252 ng/mL LAB CHEMISTRY METHOD 11/16/2024 1:45 PM EDT [facility] Blood Venous blood specimen / Unknown Venipuncture / Unknown 11/16/2024 9:41 AM EDT 11/16/2024 9:41 AM EDT Netta RITTER LAB BLOOD ORDERABLES Final Resul t Performing Organization Address [facility]/ZIP Co de Phone Number [facility] [address] [place] [address], [place] [phone] * Comprehensive metabolic panel (11/16/2024 9:41 AM EDT) Pathologist [facility] Sodium 141 133 - 145 mmol/L LAB CHEMISTRY METHOD 11/16/2024 1:46 PM [facility] Potassium 4.6 3.5 - 5.5 mmol/L LAB CHEMISTRY METHOD 11/16/2024 1:46 PM [facility] Chloride 108 96 - 110 mmol/L LAB CHEMISTRY METHOD 11/16/2024 1:46 PM [facility] CO2 28 21 - 32 mmol/L LAB CHEMISTRY METHOD 11/16/2024 1:46 PM [facility] Anion Gap 5 3 - 11 LAB CHEMISTRY METHOD 11/16/2024 1:46 PM [facility] Glucose 89 70 - 100 mg/dL LAB CHEMISTRY METHOD 11/16/2024 1:46 PM [facility] BUN 10 5 - 25 mg/dL LAB CHEMISTRY METHOD 11/16/2024 1:46 PM [facility] Creatinine 0.57 0.50 - 1.10 mg/dL LAB CHEMISTRY METHOD 11/16/2024 1:46 PM [facility] eGFR 107 >=60 mL/min/1. 73m2 LAB CHEMISTRY METHOD 11/16/2024 1:46 PM [facility] Comment:Calculation based on the Chronic Kidney Disease Epidemiology Collaboration (CKD-EPI) equation refit without adjustment for race. BUN/Creatinine Ratio 17.5 LAB CHEMISTRY METHOD 11/16/2024 1:46 PM [facility] Calcium 8.8 8.5 - 10.5 mg/dL LAB CHEMISTRY METHOD 11/16/2024 1:46 PM [facility] AST (SGOT) 23 10 - 42 unit/L LAB CHEMISTRY METHOD 11/16/2024 1:46 PM [facility] ALT (SGPT) 28 10 - 60 unit/L LAB CHEMISTRY METHOD 11/16/2024 1:46 PM [facility] Alkaline Phosphatase 74 42 - 121 unit/L LAB CHEMISTRY METHOD 11/16/2024 1:46 PM [facility] Total Protein 7.4 6.0 - 8.0 g/dL LAB CHEMISTRY METHOD 11/16/2024 1:46 PM [facility] Albumin 3.4 3.2 - 5.0 g/dL LAB CHEMISTRY METHOD 11/16/2024 1:46 PM [facility] Total Bilirubin 0.6 0.0 - 1.4 mg/dL LAB CHEMISTRY METHOD 11/16/2024 1:46 PM [facility] Blood Venous blood specimen / Unknown Venipuncture / Unknown 11/16/2024 9:41 AM EDT 11/16/2024 9:41 AM EDT us Netta RITTER LAB BLOOD ORDERABLES Final Resul t Performing Organization Address City/State/[facility] Co de Phone Number [facility] [address] [place] [address], * Thyroglobulin and thyroglobulin antibody panel (09/21/2024 10:08 AM EDT) Thyroglobulin Antibody <2 <4 IU/mL 09/23/2024 11:11 PM EDT [facility] Thyroglobulin 44.4 SeeBelow ng/mL 09/23/2024 11:11 PM EDT [facility] Comment: Thyroglobulin Reference Range: Intact thyroid: 1.6-50.0 ng/mL Athyrotic, post-thyroidectomy (tumor marker): <0.1 ng/mL Thyroglobulin antibodies can interfere with the determination of thyroglobulin. If the specimen contains thyroglobulin antibodies, please interpret the thyroglobulin result with caution. The Skulpt DXI chemiluminescent immunoassay is used. Results obtained with different assay methods or kits cannot be used interchangeably. Results cannot be interpreted as absolute evidence of the presence or absence of malignant disease. Test performed at [facility], [address] [place] [address] Ayde Platt MD, PhD - Combat Systems Engineer Blood Venous blood specimen / Unknown Venipuncture / Unknown 09/21/2024 10:08 AM EDT 09/21/2024 10:08 AM EDT Denia Ritter MD LAB BLOOD ORDERABLES Final Res ult [facility] [address] [place] [address] * Hm Pap Smear (06/02/2011) HM Pap smear No Interpretation , Abstracted Historical Provider HEALTH MAINTENANCE Final Result from Last 3 Months or Most Recently Relevant to Health Maintenance Insurance [employer] Advance Directives Documents on File Type Date Recorded Patient Hall Tender Expl anation Health Care Decision (hx) 04/19/2016 AD BAR DIRECTIVE Health Care Decision (hx) 04/19/2016 AD BAR DIRECTIVE Health Care Decision (hx) 04/19/2016 AD BAR DIRECTIVE Health Care Decision (hx) 04/19/2016 AD BAR DIRECTIVE Health Care Decision (hx) 04/19/2016 AD BAR DIRECTIVE Care Teams Can Capper Relationship Specialty Start Date End Date Jet Gomez PA [address] [place] [address] PCP - General Internal Medicine 06/26/21
--- OUTSIDE RECORDS SUMMARY | 2024-12-01 12:55 | XMS_ITS | Encounter Summary ---
Author Organization [facility] Address [address] [place] [address] Care Team Providers Care Spearer Name Role Phone Jet Gomez Primary Care Provider [phone] Encounter Details Date Type Department Care Team (Late Contact Info) Description 11/17/2024 Results [facility] [address] [address] Denia Ritter MD [address] [place] [id number] Social History Tobacco Use Types Packs/Day Years [...] PM EST documented as of this encounter Plan of Treatment Upcoming Encounters Date Type Department Care Team (Late Contact Info) Description 03/22/2025 9:20 AM EST Office Visit Endocrinology - [address] [phone] Denia Ritter MD [address] [place] [id number] documented as of this encounter Visit Diagnoses Not on filedocumented in this encounter Care Teams Spearer Relationship Specialty Start Date End Date Jet Gomez PA [address] [place] [address] PCP - General Internal Medicine 06/26/21 documented as of this encounter
--- OUTSIDE RECORDS SUMMARY | 2024-12-01 12:56 | XMS_ITS | Clinical Summary ---
Author Organization [facility] Address [address] [place] [address] Care Team Providers Care Cheese Specialist Name Role Phone Jet Gomez Primary Care Provider Source Comments PLEASE NOTE, if this patient is a minor, it may be UNLAWFUL to discuss sensitive information that is contained in these records (such as FAMILY PLANNING, MENTAL HEALTH or SUBSTANCE ABUSE) with the minor patient's parent or other person without the patient's specific authorization.[facility] Allergies No known active allergies Medications BIKTARVY 50-200-25 mg tabIndications: Asymptomatic HIV infection TAKE 1 TABLET BY MOUTH EVERY DAY 30 Tablet 11 5 Active cyclobenzaprine (FLEXERIL) 10 mg tabletIndicatio ns:Neck pain on left side Take 1 Tablet by mouth 3 (three) times daily as needed for muscle spasms. 30 Tablet 1 5 Active diclofenac sodium (VOLTAREN) 1 % gelIndications: Neck pain on left side Apply 2 g topically 2 (two) times daily. 100 g 2 5 Active clotrimazole 1 % vaginal creamIndication s:Groin rash Place 1 Applicatorful vaginally nightly at bedtime. 45 g 5 Active clotrimazole (LOTRIMIN) 1 % creamIndication s:Groin rash Apply topically 2 (two) times daily To abdominal folds. 45 g 5 Active azelastine (ASTELIN) 137 mcg (0.1 %) nasal sprayIndication s:Right ear pain Place 1 [place] into the nostril(s) 2 (two) times daily. 30 mL 1 5 Active fexofenadine (KENZIE) 180 mg tabletIndicatio ns:Right ear pain Take 1 Tablet by mouth once daily. 90 Tablet 5 Active naproxen (NAPROSYN) 500 mg tablet Take 1 Tablet by mouth 2 (two) times daily as needed for other reason (pain). 30 Tablet 1 5 Active famotidine (PEPCID) 20 mg tablet Take 1 Tablet by mouth daily. 90 Tablet 1 5 Active amoxicillin-pot clavulanate (AUGMENTIN) 875-125 mg per tabletIndicatio ns:Pleural pain Take 1 Tablet by mouth 2 (two) times daily for 5 days. 10 Tablet 5 025 Active azithromycin (ZITHROMAX Z-PARAMJIT) 250 mg tabletIndicatio ns:Pleural pain Take 2 tabs day 1 then 1 tab daily for 4 days thereafter. 6 Tablet 5 Active Active Problems Problem Noted Date Diagnosed Date Prediabetes 10/12/2024 Hiatal hernia 09/03/2024 History of colon polyps 09/02/2024 Overview (09/02/2024): Tubular adenoma at [facility] 2024- recommended recall in 7 years Hx of papillary thyroid carcinoma 09/02/2024 Overview (11/30/2024): Thyroidectomy at [facility] 2024 Non morbid obesity 09/26/2021 Varicose veins of [...] hours. Chronic hepatitis C without hepatic coma 019 Overview (06/07/2018): Images from the original note [...] rupture of tympanic membrane 05/02/2016 HIV infection 02/17/1996 Overview (09/26/2021): Diagnosed many years ago, followed by [facility] ID on Biktar Resolved Problems Problem Noted Date Diagnosed Date Resolved Date Routine adult health maintenance 09/26/2021 09/02/2024 Hemorrhoids, external without complications 12/06/2018 09/02/2024 Upper respiratory infection, acute 07/06/2018 10/05/2020 Encounters Date Type Department Care Team Description 11/30/2024 10:00 AM EDT Office Visit [address] [phone] Feliz Gomez FNP 11/16/2024 1:40 PM EDT Office Visit [address] [phone] Christine Mckenna RN 10/12/2024 Results Follow-Up [address] [phone] Reyes Tony NP 10/07/2024 3:00 PM EDT Office Visit [address] [phone] Reyes Tony NP 09/27/2024 4:20 PM EDT Office Visit [address] [phone] Nabila Landry FNP 09/23/2024 9:20 AM EDT Office Visit [address] [phone] Reyes Tony NP 09/02/2024 9:20 AM EDT Office Visit [address] [phone] Feliz Gomez FNP from Last 3 Months Immunizations Immunization Administration Dates Next Due Flu, Preservative Free 12/30/2021,2019,12/03/2017,12/10 Hep B, Adult/Adol (NUZZJMF-A-XWJWV/RECOMBIVAX-ADULT) 09/27/2020,11/24/2018,07/05/2018,05/31 Hep B,adult,adjuvanted (HEPLISAV) 04/14/2022, INFLUENZA, SEASONAL, INJECTABLE 12/06/2018,01/06,11/10/2007 Influenza (FLUBLOK),recombinant,injectable,prese rvative Free 10/23/2023 Influenza, Whole 12/02/2006,01/07/2006 MENINGOCOCCAL MCV4P (MENACTRA) 05/20/2021,2020 MMR (MMR II/Priorix) 11/16/2024,09/02/19 17,05/11/2009,05/10 PFIZER COVID VACCINE, PURPLE CAP, 12+ 03/22/2021 [...] oz) 11/30/2024 9:27 A M EDT Height 154.9 cm (5' 1 ) 10/07/2024 2:59 PM EDT Body Mass Index 38.94 10/07/2024 2:59 PM EDT Plan of Treatment Upcoming Encounters Date Type Department Care Team (Late st Contact Info) Description 12/19/2024 2:20 PM EST Office Visit [facility] [address] [place] [phone] Health Maintenance Due Date Last Done Comments HPV Screening (self-collect) [address] Colonography 2013 Colonoscopy 2013 FIT/gFOBT 2013 Flexible Sigmoidoscopy 2013 Colorectal Cancer Screening 09/06/2024 [id number] ( season) 2024 12/30/2021, 03/22/2021, 08/16/2020, Additional history exists Breast Cancer Screening (Mammogram) 11/27/2024 11/28/2023, 11/22/2022, 11/19/2021, Additional history exists Pap Smear 01/17/2025 01/17/2022, 1203/2021, 05/06/2017, Additional history exists Annual Wellness (Adult): Indicated (All Coverage) 10/07/2025 10/07/2024, 12/15/2022, 09/26/2021, Additional history exists Anxiety Screening 10/07/2025 10/07/2024 Tobacco Screening 10/07/2025 10/07/2024, 07/31/2016 Lipid Screening 10/08/2025 10/08/2024, 12/0 10/2021, 07/04/2020, Additional history exists Diabetes Screening 11/16/2025 11/16/2024, 0 10/08/2024, 05/27/2024, Additional history exists Hypertension Screening (#1) 11/30/2025 Imm-Meningococcal (3 - Risk 2-dose series) 05/20/2026 05/20/2021, 09/27/2020 Imm-DTaP/Tdap/Td (3 - Td or Tdap) 09/01/2026 09/01/2016, 12/03/2006 Cervical Cancer Screening 01/17/2027 Pap + HPV 01/17/2027 01/17/2022, 03/2021, 08/04/2018, Additional history exists Fecal DNA 09/06/2027 09/05/2024, 09/05/2024 Imm-Zoster, Recombinant Completed 11/27/2020, 09/27 Imm-Hepatitis B Completed 04/14/2022, 02/17, 09/27/2020, Additional history exists Imm-Influenza Discontinued 10/23/2023, 12/17, 12/19/2019, Additional history exists Imm-Pneumococcal 50+ Completed 10/23/2023, 05/21/2018, 01/21/2012, Additional history exists Syphilis Screening Discontinued 05/27/2024, 0 06/01/2023, 04/14/2022, Additional history exists Alcohol and Drug Screen Completed 10/08/19 25, 11/25/2023, 12/15/2022, Additional history exists Depression Annual Screen Completed 025, 12/15/2022, 08/27/2017, Additional history exists Imm-MMR Completed 11/16/2024, 08/16, 05/11/2009, Additional history exists Cervical Ablation/Cold-Knife Conization Discontinued Cervical Cryotherapy Discontinued Colposcopy Discontinued Excision/Leep Discontinued HPV Genotyping Discontinued Imm-HIB Aged Out No longer eligi ble based on patient's age to complete this topic Imm-Hepatitis A Discontinued Vaginal Pap Discontinued Vulvoscopy Discontinued Procedures Procedure Name Priority Date/Time Associated Diagnosis Comments REFERRAL SCANNED DOCUMENT 11/25/2024 3:00 AM EDT REFERRAL SCANNED DOCUMENT 11/16/2024 3:00 AM EDT REFERRAL TO GENERAL SURGERY Routine 10/27/2024 3:00 AM EDT Thumb pain, left HEMOGLOBIN GLYCOSYLATED A1C Routine 10/08/2024 9:08 AM EDT MEASLES/MUMPS/RUBELLA IMMUNITY Routine 10/08/2024 9:08 AM EDT Immunity status testing LIPID PANEL Routine 10/08/2024 9:08 AM EDT Screening for heart disease HEALTH HISTORY SCANNED DOCUMENT 10/03/2024 3:00 AM EDT REFERRAL TO ENDOCRINOLOGY Urgent 09/30/2024 3:00 AM EDT Papillary carcinoma of thyroid ([facility]) COLORECTAL CANCER SCREENING STOOL DNA, ABSTRACTED Routine 09/05/2024 8:44 AM EDT COLORECTAL CANCER SCREENING STOOL DNA, ABSTRACTED Routine 09/05/2024 8:40 AM EDT SYPHILIS ANTIBODY CASCADING REFLEX Routine 05/27/2024 12:15 PM EDT HIV infection, unspecified symptom status ([facility]) Chronic hepatitis C without hepatic coma ([facility]) HISTORIC MAMMOGRAM 11/28/2023 3: 00 AM EDT PAP SMEAR W/HPV, ABSTRACTED Routine 01/17/2022 from Last 3 Months or Most Recently Relevant to Health Maintenance Results * REFERRAL SCANNED DOCUMENT (11/25/2024 3:00 AM EDT) Only the most recent of2 resultswithin the time period is included. 11/25/2024 3:00 AM EDT us Jet RITTER SCAN REFERRAL Final Result * REFERRAL TO GENERAL SURGERY (10/27/2024 3:00 AM EDT) 10/27/2024 3:00 AM EDT us Heidi RITTER REFERRAL Final Result * (ABNORMAL) MEASLES/MUMPS/RUBELLA IMMUNITY Routine (10/08/2024 9:08 AM EDT) MEASLES IGG AB (RUBEOLA) 130.00 AU/mL 10/10/2024 7:31 PM EDT [facility] MUMPS VIRUS ANTIBODY (IGG) <9.00(L) AU/mL 10/10/2024 7:31 PM EDT [facility] RUBELLA IMMUNE STATUS <0.90(L) Index 10/10/2024 7:31 PM EDT [facility] Blood Blood / Unknown 10/08/2024 9 :08 AM EDT 10/09/2024 2:03 AM EDT Narrative [facility] - 10/10/2024 7:39 PM EDT FASTING:YES AU/mL Interpretation ----- <13.50 Not consistent with immunity 13.50-16.49 Equivocal >16.49 Consistent with immunity . The presence of measles IgG suggests immunization or past or current infection with measles virus. . For additional information, please refer to http://Virtual Command.ABSMaterials/faq/JGZ613 (This link is being provided for informational/ [...] NP LAB - BLOOD DRAW Final Result [facility] [address] [place] [id number], [facility] [place] [employer] [address] [place] [phone] * (ABNORMAL) HEMOGLOBIN GLYCOSYLATED A1C Routine (10/08/2024 9:08 AM EDT) HEMOGLOBIN A1C 5.7(H) <5.7 % 10/09/2024 3:37 AM EDT [facility] 10/08/2024 9:08 AM EDT 10/09/2024 2:18 AM EDT Narrative [facility] - 10/09/2024 3:37 AM EDT FASTING:YES For [...] for diagnosis of diabetes for children. . Amandeepkellie Mirzalinda JAD LAB - BLOOD DRAW Final Result [facility] [address] [address], [employer] [address] [address] * (ABNORMAL) LIPID PANEL Routine (10/08/2024 9:08 AM EDT) [facility] CHOLESTEROL, TOTAL 185 <200 mg/dL 10/09/2024 4:40 AM EDT [facility] HDL CHOLESTEROL 54 > OR = 50 mg/dL 10/09/2024 4:40 AM EDT [facility] TRIGLYCERIDES 130 <150 mg/dL 10/09/2024 4:40 AM EDT [facility] LDL-CHOLESTEROL 106(H) mg/dL (calc) 10/09/2024 4:40 AM EDT [facility] CHOL/HDLC RATIO 3.4 <5.0 (calc) 10/09/2024 4:40 AM EDT [facility] NON-HDL CHOLESTEROL 131(H) <130 mg/dL (calc) 10/09/2024 4:40 AM EDT [facility] Blood Blood / Unknown 10/08/2024 9 :08 AM EDT 10/09/2024 2:03 AM EDT Narrative [facility] - 10/09/2024 4:58 AM EDT FASTING:YES Reference range: <100 . Desirable range <100 mg/dL for primary prevention; <70 mg/dL for patients with CHD or diabetic patients with > or = 2 CHD risk factors. . LDL-C is now calculated using the Carie calculation, which is a validated novel method providing better accuracy than the Friedewald equation in the estimation of LDL-C. Juan HARPER et al. EMMIE. 2013;310(19): 6460-1576 (http://education.QuestDiagnostics.PureVideo Networks/faq/LFK543) For patients with diabetes plus 1 major ASCVD risk factor, treating to a non-HDL-C goal of <100 mg/dL (LDL-C of <70 mg/dL) is considered a therapeutic option. Reeys Tony NP LAB - BLOOD DRAW Final Result [facility] [address] [address], [facility] [address] [address] * HEALTH HISTORY SCANNED DOCUMENT (10/03/2024 3:00 AM EDT) 10/03/2024 3:00 AM EDT Chma Provider Default SCAN OTHER ORDERS Final Re sult * REFERRAL TO ENDOCRINOLOGY (09/30/2024 3:00 AM EDT) 09/30/2024 3:00 AM EDT Feliz Gomez STOCK MIXER REFERRAL Final Res ult * COLORECTAL CANCER SCREENING STOOL DNA Stool Stool Routine (09/05/2024 8:44 AM EDT) Only the most recent of2 resultswithin the time period is included. Stool Stool specimen / Unknown Provider [facility] BODY FLUIDS AND STOOLS AMBUL ATORY Final Result * SYPHILIS ANTIBODY CASCADING REFLEX (05/27/2024 12:15 PM EDT) T. PALLIDUM AB, EIA NEGATIVE NEGATIVE [facility] Comment: No antibodies to T. pallidum (the agent causing syphilis) were detected in the specimen. This result, however, does not exclude very recent T. pallidum infection; testing of a second specimen, collected 2-4 weeks after this specimen, is recommended if the index of suspicion for recent infection is high. Blood Blood / Unknown 05/27/2024 1 2:15 PM EDT 05/27/2024 12:16 PM EDT Narrative [facility] - 05/31/2024 6:12 PM EDT FASTING:NO Teodora Lubin PA-C LAB - BLOOD DRAW Edited Resu lt - Final [facility] [place] [facility] [address] [place] [id number], [facility] [address] [address] * HISTORIC MAMMOGRAM (11/28/2023 3:00 AM EDT) 11/28/2023 3:00 AM EDT Jet RITTER IMG MAMMO Final Result * PAP SMEAR W/HPV (01/17/2022) PAP SMEAR INTERPRETATION NORMAL NORMAL [facility] HPV (HUMAN PAPILLOMA) NEGATIVE NEGATIVE [facility] HPV TYPE 16 NEGATIVE NEGATIVE [facility] HPV TYPE 18 NEGATIVE NEGATIVE [facility] Swab 01/17/2022 Impressions [facility] - 01/17/2022 5:33 PM EST Result type: Cytology Reports TALENT ASSISTANT PAP Test Result date: January 17, 2022 22:04 EST Result status: Auth (Verified) Result title: Cytology Reports TALENT ASSISTANT PAP Test Encounter info: [id number], [facility], Discharged OutPatient, 01/17/2022 - 01/17/2022 Contributor system: COPATHPLUS * Final Report * Cytology Reports TALENT ASSISTANT PAP Test Patient Name: RUTH MCKEON Patient : 1970 (Age: 51) Lab Collection Date: 01/17/2022 Accession Date: 01/17/2022 Sign Out Date: 01/22/2022 Tissue Source: 1: THINPREP TALENT ASSISTANT PAP TEST, CERVICAL: Final Diagnosis: NEGATIVE FOR INTRAEPITHELIAL LESION OR MALIGNANCY. Satisfactory for evaluation. Endocervical/transformation zone present. Procedures/Addenda: Human Papilloma Virus, High-Risk (Any Dx) Status: Signed Out Interpretation: Negative Methodology: Posiqgic Aptima HPV mRNA assay (Nucleic Acid Amplification Test, NAAT). Clinical History: Date of Last Menstrual Period: not available Menstrual History: not available Contraceptive History: not available Ancillary Testing: HPV (any dx) Case imaged by the NOW! Innovationsp Imaging System with manual rescreening or review. Performed at [facility] department of Cytology, Janna Cagle MA Clinical History (other): ANNUAL, ROUTINE SCREEN, V76.2 Phone #: [phone], On-Call Pathologist: [id number] us Provider [facility] LAB - PATHOLOGY AND CYTOLOGY AMB ULATORY Final Result [facility] [address] [place] [address], from Last 3 Months or Most Recently Relevant to Health Maintenance Insurance [employer]) Care Teams Cheese Specialist Relationship Specialty Start Date End Date Jet Gomez PA [address] [place] [address] PCP - General Internal Medicine 06/05/18
--- NOTE | 2025-01-03 11:49 | HO.ANESPROP2 ---
Documented by User: Irina Junior NP 01/03/25 11:54 HPI - Anesthesia Eval Consult details Narrative: 54yo F for EUA,Hemorrhoidectomy s/p thyroidectomy 10/2024 for nodule. Stable at post op visit. Managed by endocrine. On levothyroxine PMFSH Active Problems Active Problems: All Active Problems Internal and external prolapsed hemorrhoids (Acute) Rectal prolapse (Acute) Hiatal hernia (Acute) Tubular adenoma of colon (Acute) Change in stool (Acute) Blood in stool (Acute) Constipation (Acute) Acid reflux (Acute) Colon cancer screening (Acute) Past Medical History Medical History Internal and external prolapsed hemorrhoids Rectal prolapse Hiatal hernia Tubular adenoma of colon Morbid obesity with BMI of 40.0-44.9, adult HIV (human immunodeficiency virus infection) Change in stool Blood in stool Constipation Acid reflux Colon cancer screening Family History Family History Mother Heart disease Surgical History Surgical History H/O thyroidectomy Hx of hand surgery Hx of carpal tunnel repair Hx of colonoscopy History of Problems with Anesthesia: No Social History Social History Household Members: Family Patient Tobacco Use Status: Never used Tobacco Advance Directives: No Advance Directives Information Provided: Yes Meds Allergies Allergy/AdvReac Type Severity Reaction Status Date / Time No Known Allergies Allergy Verified 10/27/24 12:55 Home Medications ?Medication ?Instructions ?Recorded ?Confirmed ?Last Taken ?Type bictegravir 50 mg-emtricitabine 1 tab PO DAILY 07/14/24 01/04/25 Unknown History 200 mg-tenofovir alafenam 25 mg tablet (Biktarvy) acetaminophen 650 mg 600 mg PO Q6H PRN Pain 07/19/24 01/04/25 Unknown History tablet,extended release ketoconazole 2 % topical cream 1 appl topical BID 08/25/24 01/04/25 Unknown History Exam Pertinent Lab Results Pertinent Lab Results: Laboratory Tests 07/21/24 12:51 WBC 6.9 Hgb 14.2 Hct 43.0 Plt Count 184 Sodium 144 Potassium 3.8 Chloride 110 H Carbon Dioxide 27 BUN 10 Creatinine 0.67 Narrative Narrative: EKG 10/2024 Ventricular Rate: 95 BPM Atrial Rate: 95 BPM P-R Interval: 186 ms QRS Duration: 92 ms Q-T Interval: 350 ms QTC Calculation(Bazett): 439 ms P Sequim: 45 degrees R Sequim: -11 degrees T Sequim: 19 degrees Normal sinus rhythm Normal ECG No previous ECGs available Confirmed by CONNIE SESAY MD ([id number]) on 10/26/2024 9:53:00 AM Assessment and Plan Assessment Anesthesia Assessment: Chart Reviewed Final Anesthetic Review History of Problems with Anesthesia: No Documented by User: Teri Person MD 01/06/25 09:33 [facility] Past Medical History Medical History Internal and external prolapsed hemorrhoids Rectal prolapse Hiatal hernia Tubular adenoma of colon Morbid obesity with BMI of 40.0-44.9, adult HIV (human immunodeficiency virus infection) Change in stool Blood in stool Constipation Acid reflux Colon cancer screening Family History Family History Mother Heart disease Family history of problems with anesthesia: No Surgical History Surgical History H/O thyroidectomy Hx of hand surgery Hx of carpal tunnel repair Hx of colonoscopy Social History Social History Household Members: Family Patient Tobacco Use Status: Never used Tobacco Advance Directives: No Advance Directives Information Provided: Yes Meds Allergies Allergy/AdvReac Type Severity Reaction Status Date / Time No Known Allergies Allergy Verified 10/27/24 12:55 Home Medications ?Medication ?Instructions ?Recorded ?Confirmed ?Last Taken ?Type bictegravir 50 mg-emtricitabine 1 tab PO DAILY 07/14/24 01/04/25 Unknown History 200 mg-tenofovir alafenam 25 mg tablet (Biktarvy) acetaminophen 650 mg 600 mg PO Q6H PRN Pain 07/19/24 01/04/25 Unknown History tablet,extended release ketoconazole 2 % topical cream 1 appl topical BID 08/25/24 01/04/25 Unknown History Exam Airway Mallampati Class: III TM Dist: >3cm Neck ROM: Full Heart: rrr Lungs: cta Assessment and Plan Assessment Anesthesia Assessment: Anesthesia Plan Discussed Final Anesthetic Review Family History of Problems with Anesthesia: No NPO: Yes ASA Class: III Final Preanesthetic Review: No Changes in Pt Med Stat, Meds/Allgs Chart Reviewed, Consent Obtained/Reviewed and Anes Risks/Benef Reviewed Patient Risk: Intermediate Procedure Risk: Low Anesthetic Plan Anesthetic Plan: GA and Agree w/ Assess. and Plan Disposition: Standard PACU
[2025-01-04 13:01] VITALS: BMI 38.7
[2025-01-06] VITALS (17 sets, daily range): BP systolic 129–152; BP diastolic 68–96; PULSE 65–85; RESP 10–20; TEMP 36.2–36.7; O2SAT 92–99; BMI 38.5
--- NOTE | 2025-01-06 10:05 | MHC.SHP ---
Pre-Procedural Eval Section A - 24 Hr Update-Section A only Date of Service: 01/06/25 Section B - Complete if H&P > 30 days Chief Complaint: Other hemorrhoids Details of Present Illness: He has had prolapsing hemorrhoids, and describes bleeding periodically Relevant Family History (Specify if Yes): No Relevant Social History: None Present Medications: see Short Stay Collaborative assessment Medical History: Significant History (Reflux disease, HIV) Allergies: Allergies Allergy/AdvReac Type Severity Reaction Status Date / Time No Known Allergies Allergy Verified 10/27/24 12:55 Review of Systems Sugical H&P ROS: Negative: Constitution, Cardiovascular and Respiratory Exam Surgical H&P Exam: Normal: Heart, Normal: Lungs and Normal: Extremities and Significant Findings: Abdomen (Hemorrhoids) Plan Diagnosis/Plan: Unchanged I have reviewed the history and physical and performed a pertinent physical examination on my patient. No changes have occurred unless specified. Time Spent With Patient Time: Total time managing care of this patient today ____ minutes.
[2025-01-06] MEDS: Lactated Ringers 1,000 ML 100 ML IVCONT (10:10)
--- NOTE | 2025-01-06 11:07 | P.OP_ITS ---
Operative Note Operative Note Date of Service: 01/06/25 Narrative: Preop diagnosis: Internal external hemorrhoids with prolapse and bleeding Postop diagnosis: The same Procedure: Exam under anesthesia hemorrhoidectomy x2 columns Surgeon: Denny Moran MD The patient is 58 year old female who had large internal and external hemorrhoids with prolapse and bleeding. She had therefore called the office and wants to proceed with hemorrhoidectomy. She understood the technique of the planned procedure as well as the risks, benefits, and alternatives She was brought to the operating room. She was placed in prone chelsi-knife position under general anesthesia via endotracheal tube. The buttocks were retracted with wide tape laterally. The perianal area was prepped and draped in the usual sterile fashion. A surgical time-out was done. The patient received Cefotan 2 g IV preoperatively I infiltrated the perianal area with lidocaine 1%. Examination of the anal orifice showed internal and external hemorrhoids with note of significant prolapse of the internal component. I inserted the Damaso Stern retractor. I examined the anal canal circumferentially. Again these large hemorrhoidal columns were noted. There were no other lesions. There was no fissure ulceration I applied a Quiñones grasper on the hemorrhoidal column on the left to retract this out in the field. I made a zstead-gz-fmepx stitch at the pedicle past the dentate line with a chromic 3-0. I made an incision around this hemorrhoidal column to the perianal skin with a blade 15. I excised this hemorrhoidal column along this incision above the plane of the sphincters with scissors. I closed this incision with a running chromic 3-0 stitch with additional hemostatic pfpycf-oa-lhtkh sutures placed for oozing areas I then applied a Quiñones grasper on the large hemorrhoidal column in the right side. I made a dbuieq-zj-zijgt stitch at the pedicle and made an incision around this hemorrhoidal column to the perianal skin as well. I excised this hemorrhoidal column along this incision above the plane of the sphincters with scissors and closed this incision with a running chromic 3-0 stitch with additional hemostatic nbsdtd-ra-ksewu sutures placed. This was therefore excised in the same manner as the hemorrhoidal column on the left I observed for hemostasis. Once hemostasis confirmed, I proceeded to then infiltrated the perianal generously with Marcaine 0.5% for postop analgesia A Gelfoam packing was placed. The patient tolerated procedure well. There were no immediate complications She was extubated with difficulty and transferred to the recovery room with stab le vital signs
== END 2025-01-06 15:15 | disposition home or self-care (01) ==
PROVIDERS: PCP Physician Assistant; Visit Provider Surgery
PROC: (CPT 46260; principal; 2025-01-06 10:30)
DX: K64.8 Other hemorrhoids (principal); K64.4 Residual hemorrhoidal skin tags; K59.00 Constipation, unspecified; K92.1 Melena; K62.3 Rectal prolapse; B20 Human immunodeficiency virus [HIV] disease; Z86.0101 Personal history of adenomatous and serrated colon polyps; E89.0 Postprocedural hypothyroidism; K44.9 Diaphragmatic hernia without obstruction or gangrene; K21.9 Gastro-esophageal reflux disease without esophagitis; Z79.899 Other long term (current) drug therapy
CPT/HCPCS: 46260; 88304; J0131; J0525; J1100; J1171; J2003; J2250; J2405; J2704; J2795; J3010

== ENCOUNTER → 2025-01-06 09:24 | Outpatient (BNV) | payer OTHER, SELFPAY | PROVIDERS: PCP Physician Assistant; Visit Provider Surgery | DX: K64.8 Other hemorrhoids (principal) | CPT/HCPCS: 46260 ==

== ENCOUNTER 2025-01-19 09:44 | Outpatient (AMB) | payer OTHER, SELFPAY ==
--- NOTE | 2025-01-19 09:52 | A.OFFVIS_ITS ---
Vital Signs 01/19/25 09:58 Height 5 ft 1 in Weight 203 lb 2 oz BMI 38.4 Intake Visit Reasons: S/P hemorrhoidectomy Intake Note: Patient presents for post-op follow-up status post hemorrhoidectomy. Pt c/o; reports constipation, straining with bowel movement, reports rectal bleeding. Street Department Dispatcher Required: No Accompanied by: Self / Same As Patient Allergies No Known Allergies Allergy (Verified 01/19/25 10:00) HPI HPI S/P hemorrhoidectomy: Details: She had undergone hemorrhoidectomy x2 columns last 01/06/2025. She is here for a postop visit She says that she did have significant pain postop but now is feeling much better. She is able to have good bowel movements. She occasionally sees small amounts of blood on wiping. [facility] Medical History Internal and external prolapsed hemorrhoids Rectal prolapse Hiatal hernia Tubular adenoma of colon Morbid obesity with BMI of 40.0-44.9, adult HIV (human immunodeficiency virus infection) Change in stool Blood in stool Constipation Acid reflux Colon cancer screening Surgical History H/O thyroidectomy Hx of hand surgery Hx of carpal tunnel repair Hx of colonoscopy Family History Mother Heart disease Social History Household Members: Family Patient Tobacco Use Status: Never used Tobacco Review of Systems Const Denies chills and Denies fever(s) Physical Exam Vital Signs: BMI result Body Mass Index 38.4 Const General: comfortable and no acute distress Resp Effort & Inspection: normal respiratory effort GI Other: Rectal exam shows the hemorrhoidectomy sites to be healing well without any infection or induration Assessment & Plan Assessment & Plan (1) Internal and external prolapsed hemorrhoids: Code(s): K64.8 - Other hemorrhoids Category: Medical Plan: Status post hemorrhoidectomy. She is doing very well postoperatively. Her hemorrhoidectomy sites are healing well. These are not infected I advised her to avoid straining and constipation. She is welcome to come back to the office on a p.r.n. basis. Her path report shows hemorrhoidal tissue. Coding Level of Care Code Global (58211) Diagnoses Internal and external prolapsed hemorrhoids K64.8
[2025-01-19 09:58] VITALS: BMI 38.4
--- OUTSIDE RECORDS SUMMARY | 2025-01-19 11:15 | XMS_ITS | Clinical Summary ---
Author Organization [facility] Address [address] [place] [address] Phone Care Team Providers Care Steam Trap Worker Name Role Phone Jet Gomez Primary Care Provider [phone] Allergies No known active allergies Medications diclofenac-caps [...] [facility] [address] [address] [place] [address] Denia Ritter MD 11/16/2024 9:00 AM EDT Office Visit Endocrinology [address] [phone] Denia Ritter MD Post-surgical hypothyroidism (Primary Dx); Hyperparathyroidism (CMS/[facility] V24) from Last 3 Months Immunizations Immunization Administration [...] 9:20 AM EST Office Visit Endocrinology - [place] [address] [place], [place] [phone] Denia Ritter MD [address] [place] [address] Health Maintenance Due Date Last Done Comments [...] INTACT Routine 11/16/2024 9:41 AM EDT Hyperparathyroidism ([facility] V24) VITAMIN D 25 HYDROXY [...] Routine 11/16/2024 9:41 AM EDT Post-surgical hypothyroidism HM PAP SMEAR Routine 06/02/2011 LIPID PANEL Routine 01/10/2011 from Last 3 Months or Most Recently Relevant to Health Maintenance Results * CBC auto differential (11/16/2024 9:41 AM EDT) Pathologist [facility] WBC 7.5 4.8 - 10.8 K/mcL LAB [facility] RBC 4.60 3.80 - 4.80 M/mcL LAB HEMETOLOGY METHOD 11/16[facility]2024 [facility] Hemoglobin 14.4 11.5 - 16.0 g/dL LAB HEMETOLOGY METHOD 11/16[facility]2024 [facility] Hematocrit 44.3 35.0 - 47.0 % LAB HEMETOLOGY METHOD 11/16/2024 1:06 PM [facility] MCV 96.7 79.0 - 98.0 FL LAB HEMETOLOGY METHOD 11/16/2024 [facility] MCH 31.4 27.0 - 32.0 pcg LAB HEMETOLOGY METHOD 11/16/2024 1:06 PM [facility] MCHC 32.5 32.0 - 37.0 g/dL LAB HEMETOLOGY METHOD 11/16/2024 1:06 PM [facility] RDW 13.5 11.0 - 15.0 % LAB HEMETOLOGY METHOD 11/16/2024 1:06 PM [facility] Platelets 212 130 - 400 K/mcL LAB HEMETOLOGY METHOD 11/16/2024 1:06 PM [facility] MPV 10.3 7.0 - 11.0 FL LAB HEMETOLOGY METHOD 11/16/2024 1:06 PM [facility] NRBC 0.0 <1.0 % LAB HEMETOLOGY METHOD 11/16/2024 1:06 PM [facility] NRBC Absolute 0.00 <0.10 K/mcL LAB HEMETOLOGY METHOD 11/16/2024 1:06 PM [facility] Neutrophils Relative 63.6 % LAB HEMETOLOGY METHOD 11/16/2024 1:06 PM [facility] Lymphocytes Relative 23.8 % LAB HEMETOLOGY METHOD 11/16/2024 1:06 PM [facility] Monocytes Relative 9.7 % LAB HEMETOLOGY METHOD 11/16/2024 1:06 PM [facility] Eosinophils Relative 1.7 % LAB HEMETOLOGY METHOD 11/16/2024 1:06 PM [facility] Basophils Relative 0.9 % LAB HEMETOLOGY METHOD 11/16/2024 1:06 PM [facility] Immature Granulocytes Relative 0.3 % LAB HEMETOLOGY METHOD 11/16/2024 1:06 PM [facility] Neutrophils Absolute 4.76 1.50 - 7.00 K/mcL LAB HEMETOLOGY METHOD 11/16/2024 1:06 PM [facility] Lymphocytes Absolute 1.78 1.00 - 5.00 K/mcL LAB HEMETOLOGY METHOD 11/16/2024 1:06 PM [facility] Monocytes Absolute 0.73 0.20 - 1.00 K/mcL LAB HEMETOLOGY METHOD 11/16/2024 1:06 PM [facility] Eosinophils Absolute 0.13 0.00 - 0.50 K/mcL LAB HEMETOLOGY METHOD 11/16/2024 1:06 PM EDT [facility] Basophils Absolute 0.07 0.00 - 0.20 K/[facility] LAB HEMETOLOGY METHOD 11/16/2024 1:06 PM EDT [facility] Immature Granulocytes Absolute 0.02 0.00 - 0.03 K/[facility] LAB HEMETOLOGY METHOD 11/16/2024 1:06 PM EDT [facility] Blood Venous blood specimen / Unknown Venipuncture / Unknown 11/16/2024 9:41 AM EDT 11/16/2024 9:41 AM EDT us Netta RITTER LAB BLOOD ORDERABLES Final Resul t Performing Organization Address [facility] Co de Phone Number [facility] [address] [place] [address], [place] [phone] * Iron and TIBC (11/16/2024 9:41 AM EDT) Iron 78 40 - 150 mcg/dL LAB CHEMISTRY METHOD 11/16/2024 1:46 PM EDT [facility] TIBC 388 250 - 450 mcg/dL LAB CHEMISTRY METHOD 11/16/2024 1:46 PM EDT [facility] Iron Saturation 20 15 - 50 % LAB CHEMISTRY METHOD 11/16/2024 1:46 PM EDT [facility] Blood Venous blood specimen / Unknown Venipuncture / Unknown 11/16/2024 9:41 AM EDT 11/16/2024 9:41 AM EDT us Netta RITTER LAB BLOOD ORDERABLES Final Resul t Performing Organization Address City/[facility]/ZIP Co de Phone Number [facility] [address] [place] [address], [place] [phone] * Vitamin D 25 hydroxy (11/16/2024 9:41 AM EDT) Vit D, 25-Hydroxy 32.8 30.0 - 80.0 ng/mL LAB CHEMISTRY METHOD 11/16/2024 3:13 PM EDT [facility] Blood Venous blood specimen / Unknown Venipuncture / Unknown 11/16/2024 9:41 AM EDT 11/16/2024 9:41 AM EDT us Netta RITTER LAB BLOOD ORDERABLES Final Resul t Performing Organization Address City/[facility] Co de Phone Number [facility] [address] [place] [address], [place] [phone] * Thyroid stimulating hormone (11/16/2024 9:41 AM EDT) TSH 0.52 0.40 - 4.00 mcIU/mL LAB CHEMISTRY METHOD 11/16/2024 3:13 PM EDT [facility] Blood Venous blood specimen / Unknown Venipuncture / Unknown 11/16/2024 9:41 AM EDT 11/16/2024 9:41 AM EDT us Denia Ritter MD LAB BLOOD ORDERABLES Final Res ult Performing Organization Address City/[facility]/ZIP Co de Phone Number [facility] [address] [place] [address], [place] [phone] * Thyroxine free (11/16/2024 9:41 AM EDT) Free T4 1.64 0.70 - 1.80 ng/dL LAB CHEMISTRY METHOD 11/16/2024 3:13 PM EDT [facility] Blood Venous blood specimen / Unknown Venipuncture / Unknown 11/16/2024 9:41 AM EDT 11/16/2024 9:41 AM EDT us Netta RITTER LAB BLOOD ORDERABLES Final Resul t Performing Organization Address [facility] de Phone Number [facility] [address] [place] [address], [place] [phone] * (ABNORMAL) Parathyroid hormone intact (11/16/2024 9:41 AM EDT) PTH 111.1(H) 18.5 - 88.0 pcg/mL LAB CHEMISTRY METHOD 11/16/2024 3:44 PM EDT [facility] Blood Venous blood specimen / Unknown Venipuncture / Unknown 11/16/2024 9:41 AM EDT 11/16/2024 9:41 AM EDT Denia Ritter MD LAB BLOOD ORDERABLES Final Res ult Performing Organization Address [facility] de Phone Number [facility] [address] [place] [address], [place] [phone] * Ferritin (11/16/2024 9:41 AM EDT) Ferritin 158 8 - 252 ng/mL LAB CHEMISTRY METHOD 11/16/2024 1:45 PM EDT [facility] Blood Venous blood specimen / Unknown Venipuncture / Unknown 11/16/2024 9:41 AM EDT 11/16/2024 9:41 AM EDT Netta RITTER LAB BLOOD ORDERABLES Final Resul t Performing Organization Address [facility] de Phone Number [facility] [address] [place] [address], [place] [phone] * Comprehensive metabolic panel (11/16/2024 9:41 AM EDT) Sodium 141 133 - 145 mmol/L LAB CHEMISTRY METHOD 11/16/2024 1:46 PM EDT [facility] Potassium 4.6 3.5 - 5.5 mmol/L LAB CHEMISTRY METHOD 11/16/2024 1:46 PM [facility] Chloride 108 96 - 110 mmol/L LAB CHEMISTRY METHOD 11/16/2024 1:46 PM [facility] CO2 28 21 - 32 mmol/L LAB CHEMISTRY METHOD 11/16/2024 1:46 PM [facility] Anion Gap 5 3 - 11 LAB CHEMISTRY METHOD 11/16/2024 1:46 PM [facility] Glucose 89 70 - 100 mg/dL LAB CHEMISTRY METHOD 11/16/2024 1:46 PM [facility] BUN 10 5 - 25 mg/dL LAB CHEMISTRY METHOD 11/16/2024 1:46 PM [facility] Creatinine 0.57 0.50 - 1.10 mg/dL LAB CHEMISTRY METHOD 11/16/2024 1:46 PM [facility] eGFR 107 >=60 mL/min/1. 73m2 LAB CHEMISTRY METHOD 11/16/2024 1:46 PM [facility] Comment:Calculation based on the Chronic Kidney Disease Epidemiology Collaboration (CKD-EPI) equation refit without adjustment for race. BUN/Creatinine Ratio 17.5 LAB CHEMISTRY METHOD 11/16/2024 1:46 PM [facility] Calcium 8.8 8.5 - 10.5 mg/dL LAB CHEMISTRY METHOD 11/16/2024 1:46 PM [facility] AST (SGOT) 23 10 - 42 unit/L LAB CHEMISTRY METHOD 11/16/2024 1:46 PM [facility] ALT (SGPT) 28 10 - 60 unit/L LAB CHEMISTRY METHOD 11/16/2024 1:46 PM [facility] Alkaline Phosphatase 74 42 - 121 unit/L LAB CHEMISTRY METHOD 11/16/2024 1:46 PM [facility] Total Protein 7.4 6.0 - 8.0 g/dL LAB CHEMISTRY METHOD 11/16/2024 1:46 PM EDT [facility] Albumin 3.4 3.2 - 5.0 g/dL LAB CHEMISTRY METHOD 11/16/2024 1:46 PM EDT [facility] Total Bilirubin 0.6 0.0 - 1.4 mg/dL LAB CHEMISTRY METHOD 11/16/2024 1:46 PM EDT [facility] Blood Venous blood specimen / Unknown Venipuncture / Unknown 11/16/2024 9:41 AM EDT 11/16/2024 9:41 AM EDT Netta RITTER LAB BLOOD ORDERABLES Final Resul t [facility] [address] [place] [address], * Pap Smear (06/02/2011) Pap smear No Interpretation , Abstracted Historical Provider HEALTH MAINTENANCE Final Result * (ABNORMAL) Lipid panel (01/10/2011) LDL/HDL Ratio 3 0 - 4 Triglycerides 117 0 - 150 mg/dL Cholesterol 182 0 - 200 mg/dL HDL 58 >=40 mg/dL LDL Cholesterol 101(A) 0 - 100 mg/dL Blood Venous blood specimen / Unknown Historical Provider LAB BLOOD ORDERABLES Myrtle l Result from Last 3 Months or Most Recently Relevant to Health Maintenance Insurance [employer] [id number] Advance Directives Documents on File Type Date Recorded 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
--- OUTSIDE RECORDS SUMMARY | 2025-01-19 11:15 | XMS_ITS | Encounter Summary ---
[facility] Organization [facility] Address [address] [place] [address] Care Team Providers Care Environmental Services Project Manager Name Role Phone Jet Gomez Primary Care Provider [phone] Encounter Details Date Type Department Care Team (Late Contact Info) Description 11/17/2024 Results [facility] [address] [address] Denia Ritter MD [address] [place] [phone] Social History Tobacco Use Types Packs/Day Years [...] 9:20 AM EST Office Visit Endocrinology - [address] [phone] Denai Ritter MD [address] [place] [phone] documented as of this encounter Visit Diagnoses Not on filedocumented in this encounter Care Teams Environmental Services Project Manager Relationship Specialty Start Date End Date Jet Gomez PA [address] [place] [address] PCP - General Internal Medicine 06/26/21 documented as of this encounter
== END 2025-01-19 10:13 | disposition home or self-care (01) ==
LOC: HO.HGS 09:44
PROVIDERS: PCP Physician Assistant; Visit Provider Surgery
DX: K64.8 Other hemorrhoids (principal)
CPT/HCPCS: 99024